=== PATIENT | male | born 1965 | race Caucasian/White ===

== ENCOUNTER 2023-05-25 15:40 | Inpatient (IN) | payer MEDICARE, SELFPAY ==
[2023-05-25] VITALS (16 sets, daily range): BP systolic 104–223; BP diastolic 63–147; PULSE 57–82; RESP 12–22; TEMP 36.7–36.8; O2SAT 97–100; BMI 21.5
--- NOTE | 2023-05-25 15:56 | W.ED.PSYCHS ---
Documented by User: JAHAIRA Benjamin 05/25/23 16:34 HPI - Psych General: Chief Complaint: Psychiatric Symptoms Stated Complaint: MHE (96) Time Seen by Provider: 05/25/23 15:48 Source: patient and police Mode of arrival: other (police) Limitations: no limitations History of Present Illness: Patient is a 58-year-old male who arrives in police custody on a 96-hour hold. Patient arrives from paperwork from [facility] emergency department where he was seen yesterday. According to paperwork, patient was seen in ED to obtain medical/psych clearance for nursing home. There is some confusion on what happened following discharge from [facility] ED as patient states police found him in a park but paperwork seems to indicate he left ED in police custody (?). Paperwork also seems to indicate that at some point he was supposed to go to [place] as they had confirmed bed availability. According to hold paperwork patient was overheard by police making homicidal statements stating that he was going to blow some guys head off. Upon my examination patient tells me that he has telekinesis and that his third eye allows him to see the voices. He states he has not been eating stating that the nursing home staff are poisoning him. Patient tells me he is not SI/HI. He is noted to be significantly hypertensive upon arrival with a BP of 220s/140s. Patient tells me he chronically has high blood pressure. He tells me he wears clonidine patches. Most likely he is having a significant rebound reaction at this time. He does not complain of a headache, chest pain, difficulty breathing. MD complaint: altered mental status Onset (ago): unknown Associated symptoms: Reports auditory hallucinations, visual hallucinations and delusions; Deny depression, homicidal ideation or suicidal ideation Treatments prior to arrival: placed on mental health hold Review of Systems Const: Denies: fever(s) or chills Card: Denies: chest pain, palpitations, lightheadedness or syncope Resp: Denies: dyspnea GI: Denies: abdominal pain, nausea, vomiting or diarrhea Skin/Breast: Denies: rash Neuro: Denies: headache(s) Psych: Reports: visual hallucinations and auditory hallucinations; Denies: anxiety, depression, suicidal ideation or homicidal ideation Physical Exam Const: COMMON NORMALS: no acute distress, no limitations, alert and well nourished GENERAL APPEARANCE: disheveled ORIENTATION/CONSCIOUSNESS: Yes awake, Yes oriented to person, Yes oriented to place and Yes oriented to time Resp: COMMON NORMALS: normal respiratory effort and clear to auscultation bilaterally AUSCULTATION: clear to auscultation bilaterally Cardio: COMMON NORMALS: regular rate and regular rhythm RATE: regular rate RHYTHM: regular rhythm Neuro: JAZ COMA SCALE: document GCS findings [place] coma scale eye opening: Spontaneous [place] coma scale verbal response: Orientated Jaz coma scale motor response: Obey commands Jaz coma scale total score: 15 SENSORIUM/ORIENTATION: Yes alert, Yes oriented to person, Yes oriented to place and Yes oriented to time Psych: COMMON NORMALS: cooperative, normal affect, speech normal, activity/motor behavior normal, denies homicidal ideation and denies suicidal ideation APPEARANCE: Yes disheveled ATTITUDE: Yes calm ACTIVITY/MOTOR BEHAVIOR: Yes appropriate eye contact SPEECH: Yes normal speech MOOD & AFFECT: Yes euthymic mood THOUGHT CONTENT: Yes delusions ATTENTION/CONCENTRATION: Yes attention grossly intact and Yes concentration grossly intact MEMORY/COGNITION: Yes memory grossly impaired and Yes cognition grossly impaired INSIGHT: Fair insight present (Psych) JUDGEMENT: Limited judgement present (Psych) Course Vital Signs: Vital signs: Vital Signs Temperature 98.3 F 05/25/23 15:58 Pulse Rate 66 05/25/23 17:17 Respiratory Rate 16 05/25/23 17:17 Blood Pressure 199/121 05/25/23 17:17 Pulse Oximetry 98 05/25/23 17:17 Oxygen Delivery Me thod Room Air 05/25/23 15:58 MDM - Psych Lab Data 05/25/23 16:16 05/25/23 16:16 Laboratory Results WBC 7.1 10^3/uL (4.0-10.0) 05/25/23 16:16 RBC 4.57 10^6/uL (4.1-5.3) 05/25/23 16:16 Hgb 12.9 g/dL (11.7-16.6) 05/25/23 16:16 Hct 41.2 % (42.0-52.0) L 05/25/23 16:16 MCV 90.2 fl (80-94) 05/25/23 16:16 MCH 28.2 pg (28.0-34.0) 05/25/23 16:16 MCHC 31.3 g/dL (30.0-36.0) 05/25/23 16:16 RDW 14.0 % (12.1-15.1) 05/25/23 16:16 Plt Count 226 10^3/cmm (130-400) 05/25/23 16:16 MPV 9.4 fL (7.4-10.4) 05/25/23 16:16 Neut % (Auto) 70.7 % 05/25/23 16:16 Lymph % (Auto) 20.5 % 05/25/23 16:16 [place] % (Auto) 4.7 % 05/25/23 16:16 Eos % (Auto) 3.2 % 05/25/23 16:16 Baso % (Auto) 0.6 % 05/25/23 16:16 Neut # (Auto) 5.01 10^3/uL (1.8-7.7) 05/25/23 16:16 Lymph # (Auto) 1.5 10^3/uL (0.8-4.8) 05/25/23 16:16 [place] # (Auto) 0.3 10^3/uL (0.2-0.9) 05/25/23 16:16 Eos # (Auto) 0.2 10^3/uL (0.0-0.8) 05/25/23 16:16 Baso # (Auto) 0.0 10^3/uL (0.0-0.1) 05/25/23 16:16 Nucleated RBC % (auto) 0 % 05/25/23 16:16 Nucleated RBCs # 0.0 /100WBC 05/25/23 16:16 Sodium 140 mmol/L (136-145) 05/25/23 16:16 Potassium 4.2 mmol/L (3.5-5.1) 05/25/23 16:16 Chloride 104 mmol/L (98-107) 05/25/23 16:16 Carbon Dioxide 25 mmol/L (22-29) 05/25/23 16:16 Anion Gap 15.2 (5-19) 05/25/23 16:16 BUN 20 mg/dL (6-20) 05/25/23 16:16 Creatinine 1.7 mg/dL (0.7-1.2) H 05/25/23 16:16 GFR Calculation 41.5 mL/min (90-130) L 05/25/23 16:16 Glucose 91 mg/dL (65-115) 05/25/23 16:16 Calculated Osmolality 292 mOsm/kg (285-295) 05/25/23 16:16 Calcium 9.3 mg/dL (8.5-10.5) 05/25/23 16:16 Total Bilirubin 0.5 mg/dL (0.15-1.2) 05/25/23 16:16 AST 10 U/L (0-40) 05/25/23 16:16 ALT 7 U/L (0-41) 05/25/23 16:16 Alkaline Phosphatase 78 U/L (40-130) 05/25/23 16:16 Total Protein 8.0 g/dL (6.6-8.7) 05/25/23 16:16 Albumin 4.5 g/dL (3.5-5.2) 05/25/23 16:16 Globulin 3.5 g/dL (1.3-4.6) 05/25/23 16:16 TSH 2.33 uIU/mL (0.27-4.20) 05/25/23 16:16 Urine Color Yellow (Yellow) 05/25/23 16:12 Urine Appearance Clear (CLEAR) 05/25/23 16:12 Urine pH 5 (5-7) 05/25/23 16:12 Ur Specific [place] 1.020 (1.005-1.030) 05/25/23 16:12 Urine Protein Neg (Negative) 05/25/23 16:12 Urine Glucose (UA) Norm (Normal) 05/25/23 16:12 Urine Ketones Negative (Negative) 05/25/23 16:12 Urine Blood Neg (Negative) 05/25/23 16:12 Urine Nitrate Negative (Negative) 05/25/23 16:12 Urine Bilirubin Neg (Negative) 05/25/23 16:12 Urine Urobilinogen Norm mg/dL (Negative) 05/25/23 16:12 Ur Leukocyte Esterase Negative (Negative) 05/25/23 16:12 Salicylates < 0.3 mg/dL (3-10) L 05/25/23 16:16 Urine Opiates Screen Negative ng/mL (Negative) 05/25/23 16:12 Acetaminophen < 5.0 ug/mL (10-30) L 05/25/23 16:16 Ur Barbiturates Screen Negative ng/mL (Negative) 05/25/23 16:12 Ur Phencyclidine Scrn Negative ng/mL (Negative) 05/25/23 16:12 Ur Amphetamines Screen Negative ng/mL (Negative) 05/25/23 16:12 U Benzodiazepines Scrn Negative ng/mL (Negative) 05/25/23 16:12 Urine Cocaine Screen Negative ng/mL (Negative) 05/25/23 16:12 U Marijuana (THC) Screen Negative ng/mL (Negative) 05/25/23 16:12 Ethyl Alcohol < 10 mg/dL (0-10) 05/25/23 16:16 Influenza Type A Ag Cancelled 05/25/23 16:40 Influenza Type B Ag Cancelled 05/25/23 16:40 SARS-CoV-2 Ag (Rapid) negative (Negative) 05/25/23 16:40 Discharge Plan Discharge Patient Disposition: Admitted As Inpatient Clinical Impression: Acute psychosis, Homicidal thoughts Condition: Stable Sign Out Sign Out Data: Patient Sign Out occurred on 05/25/23 at 16:59. Patient's care was discussed, and care was transferred from to Prosper Martinez. Coding Level of Care Code ED Die Cleaner for Leona Lee Documented by User: NITESH Domingo 05/25/23 17:20 HPI - Psych General: Chief Complaint: Psychiatric Symptoms Stated Complaint: MHE (96) Time Seen by Provider: 05/25/23 15:48 Physical Exam Neuro: JAZ COMA SCALE: document GCS findings [place] coma scale total score: 15 Course Vital Signs: Vital signs: Vital Signs Temperature 98.3 F 05/25/23 15:58 Pulse Rate 66 05/25/23 17:17 Respiratory Rate 16 05/25/23 17:17 Blood Pressure 199/121 05/25/23 17:17 Pulse Oximetry 98 05/25/23 17:17 Oxygen Delivery Me thod Room Air 05/25/23 15:58 MDM - Psych Medical Decision Making 58-year-old male patient was brought in for 96-hour hold for hallucinations and homicidal ideation while in custody at the [facility]. Patient is cooperative in the emergency department. Patient does have some elevated blood pressure. Patient was medicated with clonidine and lisinopril in the ER. Laboratory values were unremarkable. Respirations were even lungs were clear to auscultation. Patient reported no chest pain or shortness of breath. Differential diagnosis includes acute psychosis, substance abuse disorder, major depressive disorder, bipolar disorder, schizotypal disorder. Reviewed patient with Dr. Benson, psychiatrist on-call. He agreed to admission to neuropsychiatric unit for further evaluation and treatment. Lab Data 05/25/23 16:16 05/25/23 16:16 Laboratory Results WBC 7.1 10^3/uL (4.0-10.0) 05/25/23 16:16 RBC 4.57 10^6/uL (4.1-5.3) 05/25/23 16:16 Hgb 12.9 g/dL (11.7-16.6) 05/25/23 16:16 Hct 41.2 % (42.0-52.0) L 05/25/23 16:16 MCV 90.2 fl (80-94) 05/25/23 16:16 MCH 28.2 pg (28.0-34.0) 05/25/23 16:16 MCHC 31.3 g/dL (30.0-36.0) 05/25/23 16:16 RDW 14.0 % (12.1-15.1) 05/25/23 16:16 Plt Count 226 10^3/cmm (130-400) 05/25/23 16:16 MPV 9.4 fL (7.4-10.4) 05/25/23 16:16 Neut % (Auto) 70.7 % 05/25/23 16:16 Lymph % (Auto) 20.5 % 05/25/23 16:16 [place] % (Auto) 4.7 % 05/25/23 16:16 Eos % (Auto) 3.2 % 05/25/23 16:16 Baso % (Auto) 0.6 % 05/25/23 16:16 Neut # (Auto) 5.01 10^3/uL (1.8-7.7) 05/25/23 16:16 Lymph # (Auto) 1.5 10^3/uL (0.8-4.8) 05/25/23 16:16 [place] # (Auto) 0.3 10^3/uL (0.2-0.9) 05/25/23 16:16 Eos # (Auto) 0.2 10^3/uL (0.0-0.8) 05/25/23 16:16 Baso # (Auto) 0.0 10^3/uL (0.0-0.1) 05/25/23 16:16 Nucleated RBC % (auto) 0 % 05/25/23 16:16 Nucleated RBCs # 0.0 /100WBC 05/25/23 16:16 Sodium 140 mmol/L (136-145) 05/25/23 16:16 Potassium 4.2 mmol/L (3.5-5.1) 05/25/23 16:16 Chloride 104 mmol/L (98-107) 05/25/23 16:16 Carbon Dioxide 25 mmol/L (22-29) 05/25/23 16:16 Anion Gap 15.2 (5-19) 05/25/23 16:16 BUN 20 mg/dL (6-20) 05/25/23 16:16 Creatinine 1.7 mg/dL (0.7-1.2) H 05/25/23 16:16 GFR Calculation 41.5 mL/min (90-130) L 05/25/23 16:16 Glucose 91 mg/dL (65-115) 05/25/23 16:16 Calculated Osmolality 292 mOsm/kg (285-295) 05/25/23 16:16 Calcium 9.3 mg/dL (8.5-10.5) 05/25/23 16:16 Total Bilirubin 0.5 mg/dL (0.15-1.2) 05/25/23 16:16 AST 10 U/L (0-40) 05/25/23 16:16 ALT 7 U/L (0-41) 05/25/23 16:16 Alkaline Phosphatase 78 U/L (40-130) 05/25/23 16:16 Total Protein 8.0 g/dL (6.6-8.7) 05/25/23 16:16 Albumin 4.5 g/dL (3.5-5.2) 05/25/23 16:16 Globulin 3.5 g/dL (1.3-4.6) 05/25/23 16:16 TSH 2.33 uIU/mL (0.27-4.20) 05/25/23 16:16 Urine Color Yellow (Yellow) 05/25/23 16:12 Urine Appearance Clear (CLEAR) 05/25/23 16:12 Urine pH 5 (5-7) 05/25/23 16:12 Ur Specific [place] 1.020 (1.005-1.030) 05/25/23 16:12 Urine Protein Neg (Negative) 05/25/23 16:12 Urine Glucose (UA) Norm (Normal) 05/25/23 16:12 Urine Ketones Negative (Negative) 05/25/23 16:12 Urine Blood Neg (Negative) 05/25/23 16:12 Urine Nitrate Negative (Negative) 05/25/23 16:12 Urine Bilirubin Neg (Negative) 05/25/23 16:12 Urine Urobilinogen Norm mg/dL (Negative) 05/25/23 16:12 Ur Leukocyte Esterase Negative (Negative) 05/25/23 16:12 Salicylates < 0.3 mg/dL (3-10) L 05/25/23 16:16 Urine Opiates Screen Negative ng/mL (Negative) 05/25/23 16:12 Acetaminophen < 5.0 ug/mL (10-30) L 05/25/23 16:16 Ur Barbiturates Screen Negative ng/mL (Negative) 05/25/23 16:12 Ur Phencyclidine Scrn Negative ng/mL (Negative) 05/25/23 16:12 Ur Amphetamines Screen Negative ng/mL (Negative) 05/25/23 16:12 U Benzodiazepines Scrn Negative ng/mL (Negative) 05/25/23 16:12 Urine Cocaine Screen Negative ng/mL (Negative) 05/25/23 16:12 U Marijuana (THC) Screen Negative ng/mL (Negative) 05/25/23 16:12 Ethyl Alcohol < 10 mg/dL (0-10) 05/25/23 16:16 Influenza Type A Ag Cancelled 05/25/23 16:40 Influenza Type B Ag Cancelled 05/25/23 16:40 SARS-CoV-2 Ag (Rapid) negative (Negative) 05/25/23 16:40 Discharge Plan Discharge Patient Disposition: Admitted As Inpatient Clinical Impression: Acute psychosis, Homicidal thoughts Condition: Stable Sign Out Sign Out Data: Patient Sign Out occurred on 05/25/23 at 16:59. Patient's care was discussed, and care was transferred from to Prosper Martinez. Coding Level of Care Code ED Die Cleaner for Chg Fwd Documented by User: Zelalem Valles DO 05/25/23 17:56 HPI - Psych General: Chief Complaint: Psychiatric Symptoms Stated Complaint: MHE (96) Time Seen by Provider: 05/25/23 15:48 Physical Exam Neuro: JAZ COMA SCALE: document GCS findings Jaz coma scale total score: 15 Course Vital Signs: Vital signs: Vital Signs Temperature 98.3 F 05/25/23 15:58 Pulse Rate 66 05/25/23 17:17 Respiratory Rate 16 05/25/23 17:17 Blood Pressure 199/121 05/25/23 17:17 Pulse Oximetry 98 05/25/23 17:17 Oxygen Delivery Me thod Room Air 05/25/23 15:58 MDM - Psych Medical Decision Making 58-year-old male patient was brought in for 96-hour hold for hallucinations and homicidal ideation while in custody at the [facility]. Patient is cooperative in the emergency department. Patient does have some elevated blood pressure. Patient was medicated with clonidine and lisinopril in the ER. Laboratory values were unremarkable. Respirations were even lungs were clear to auscultation. Patient reported no chest pain or shortness of breath. Differential diagnosis includes acute psychosis, substance abuse disorder, major depressive disorder, bipolar disorder, schizotypal disorder. Reviewed patient with Dr. Benson, psychiatrist on-call. He agreed to admission to neuropsychiatric unit for further evaluation and treatment. Chart reviewed and patient discussed with midlevel. Agree with assessment and plan. Orders written for admission to [facility]. Creatinine is mildly elevated blood pressure is elevated as well. Will consult hospitalist for blood pressure management monitoring creatinine. Lab Data 05/25/23 16:16 05/25/23 16:16 Laboratory Results WBC 7.1 10^3/uL (4.0-10.0) 05/25/23 16:16 RBC 4.57 10^6/uL (4.1-5.3) 05/25/23 16:16 Hgb 12.9 g/dL (11.7-16.6) 05/25/23 16:16 Hct 41.2 % (42.0-52.0) L 05/25/23 16:16 MCV 90.2 fl (80-94) 05/25/23 16:16 MCH 28.2 pg (28.0-34.0) 05/25/23 16:16 MCHC 31.3 g/dL (30.0-36.0) 05/25/23 16:16 RDW 14.0 % (12.1-15.1) 05/25/23 16:16 Plt Count 226 10^3/cmm (130-400) 05/25/23 16:16 MPV 9.4 fL (7.4-10.4) 05/25/23 16:16 Neut % (Auto) 70.7 % 05/25/23 16:16 Lymph % (Auto) 20.5 % 05/25/23 16:16 [place] % (Auto) 4.7 % 05/25/23 16:16 Eos % (Auto) 3.2 % 05/25/23 16:16 Baso % (Auto) 0.6 % 05/25/23 16:16 Neut # (Auto) 5.01 10^3/uL (1.8-7.7) 05/25/23 16:16 Lymph # (Auto) 1.5 10^3/uL (0.8-4.8) 05/25/23 16:16 [place] # (Auto) 0.3 10^3/uL (0.2-0.9) 05/25/23 16:16 Eos # (Auto) 0.2 10^3/uL (0.0-0.8) 05/25/23 16:16 Baso # (Auto) 0.0 10^3/uL (0.0-0.1) 05/25/23 16:16 Nucleated RBC % (auto) 0 % 05/25/23 16:16 Nucleated RBCs # 0.0 /100WBC 05/25/23 16:16 Sodium 140 mmol/L (136-145) 05/25/23 16:16 Potassium 4.2 mmol/L (3.5-5.1) 05/25/23 16:16 Chloride 104 mmol/L (98-107) 05/25/23 16:16 Carbon Dioxide 25 mmol/L (22-29) 05/25/23 16:16 Anion Gap 15.2 (5-19) 05/25/23 16:16 BUN 20 mg/dL (6-20) 05/25/23 16:16 Creatinine 1.7 mg/dL (0.7-1.2) H 05/25/23 16:16 GFR Calculation 41.5 mL/min (90-130) L 05/25/23 16:16 Glucose 91 mg/dL (65-115) 05/25/23 16:16 Calculated Osmolality 292 mOsm/kg (285-295) 05/25/23 16:16 Calcium 9.3 mg/dL (8.5-10.5) 05/25/23 16:16 Total Bilirubin 0.5 mg/dL (0.15-1.2) 05/25/23 16:16 AST 10 U/L (0-40) 05/25/23 16:16 ALT 7 U/L (0-41) 05/25/23 16:16 Alkaline Phosphatase 78 U/L (40-130) 05/25/23 16:16 Total Protein 8.0 g/dL (6.6-8.7) 05/25/23 16:16 Albumin 4.5 g/dL (3.5-5.2) 05/25/23 16:16 Globulin 3.5 g/dL (1.3-4.6) 05/25/23 16:16 TSH 2.33 uIU/mL (0.27-4.20) 05/25/23 16:16 Urine Color Yellow (Yellow) 05/25/23 16:12 Urine Appearance Clear (CLEAR) 05/25/23 16:12 Urine pH 5 (5-7) 05/25/23 16:12 Ur Specific [place] 1.020 (1.005-1.030) 05/25/23 16:12 Urine Protein Neg (Negative) 05/25/23 16:12 Urine Glucose (UA) Norm (Normal) 05/25/23 16:12 Urine Ketones Negative (Negative) 05/25/23 16:12 Urine Blood Neg (Negative) 05/25/23 16:12 Urine Nitrate Negative (Negative) 05/25/23 16:12 Urine Bilirubin Neg (Negative) 05/25/23 16:12 Urine Urobilinogen Norm mg/dL (Negative) 05/25/23 16:12 Ur Leukocyte Esterase Negative (Negative) 05/25/23 16:12 Salicylates < 0.3 mg/dL (3-10) L 05/25/23 16:16 Urine Opiates Screen Negative ng/mL (Negative) 05/25/23 16:12 Acetaminophen < 5.0 ug/mL (10-30) L 05/25/23 16:16 Ur Barbiturates Screen Negative ng/mL (Negative) 05/25/23 16:12 Ur Phencyclidine Scrn Negative ng/mL (Negative) 05/25/23 16:12 Ur Amphetamines Screen Negative ng/mL (Negative) 05/25/23 16:12 U Benzodiazepines Scrn Negative ng/mL (Negative) 05/25/23 16:12 Urine Cocaine Screen Negative ng/mL (Negative) 05/25/23 16:12 U Marijuana (THC) Screen Negative ng/mL (Negative) 05/25/23 16:12 Ethyl Alcohol < 10 mg/dL (0-10) 05/25/23 16:16 Influenza Type A Ag Cancelled 05/25/23 16:40 Influenza Type B Ag Cancelled 05/25/23 16:40 SARS-CoV-2 Ag (Rapid) negative (Negative) 05/25/23 16:40 Discharge Plan Discharge Patient Disposition: Admitted As Inpatient Clinical Impression: Acute psychosis, Homicidal thoughts Condition: Stable Sign Out Sign Out Data: Patient Sign Out occurred on 05/25/23 at 16:59. Patient's care was discussed, and care was transferred from to Prosper Martinez. Coding Level of Care Code ED Die Cleaner for Leona Lee
[2023-05-25 16:28] LABS: Add Urine Microscopic? NO; Charge for UA Resulting for Rev
[2023-05-25 16:28] LABS: Basophils % 0.6 %; Eosinophils # 0.2 10^3/uL (0.0-0.8); Eosinophils % 3.2 %; Hematocrit 41.2 % (42.0-52.0); Hemoglobin 12.9 g/dL (11.7-16.6); Lymphocytes # 1.5 10^3/uL (0.8-4.8); Lymphocytes % 20.5 %; Mean Corpuscular HGB Conc 31.3 g/dL (30.0-36.0); Mean Corpuscular Hemoglobin 28.2 pg (28.0-34.0); Mean Corpuscular Volume 90.2 fl (80-94); Mean Platelet Volume 9.4 fL (7.4-10.4); Monocytes # 0.3 10^3/uL (0.2-0.9); Monocytes % 4.7 %; Neutrophils # 5.01 10^3/uL (1.8-7.7); Neutrophils % 70.7 %; Nucleated Red Blood Cells % 0 %; Platelet Count 226 10^3/cmm (130-400); Red Blood Count 4.57 10^6/uL (4.1-5.3); White Blood Count 7.1 10^3/uL (4.0-10.0)
[2023-05-25] MEDS: cloNIDine 0.1 mg Tablet PO (16:29)
[2023-05-25] MEDS: lisinopril 20 mg Tablet PO (16:29)
[2023-05-25 16:34] LABS: Bilirubin Urine Neg (Negative); Blood Urine Neg (Negative); Glucose Urine UA Norm (Normal); Ketones Urine Negative (Negative); Leukocyte Esterase Urine Negative (Negative); Nitrate Urine Negative (Negative); Protein Urine Neg (Negative); Urine Appearance Clear (CLEAR); Urine Color Yellow (Yellow); Urobilinogen Urine Norm (Negative); pH Urine 5 (5-7)
[2023-05-25 16:37] LABS: Amphetamines Screen Urine Negative (Negative); Barbiturates Screen Urine Negative (Negative); Benzodiazepines Screen Urine Negative (Negative); Cocaine Screen Urine Negative (Negative); Opiate Screen Urine Negative (Negative); PCP Screen Urine Negative (Negative); THC Screen Urine Negative (Negative)
--- NOTE | 2023-05-25 16:49 | ECG_ITS ---
[facility] Test Date: 2023-05-25 Pat Name: Jason Castro Department: Room: Gender: Male Laborer Yard: : 1965 Requested By: Maggie Hamilton Order Number: [id number] Gracia MD: Carlos Landeros M.D. Measurements Intervals [place] Rate: 49 P: 67 AK: 138 QRS: 69 QRSD: 100 T: 89 QT: 433 QTc: 393 Interpretive Statements SINUS BRADYCARDIA POSSIBLE LEFT ATRIAL ENLARGEMENT [-0.1mV P-WAVE IN V1/V2] LEFT VENTRICULAR HYPERTROPHY AND ST-T CHANGE [VOLTAGE CRITERIA PLUS ST/T ABNORMALITY] No previous ECG available for comparison Electronically Signed On 05-25-2023 17:02:30 CDT by Carlos Landeros M.D. [id number]
[2023-05-25 16:55] LABS: Alanine Aminotransferase 7 U/L (0-41); Albumin Level 4.5 g/dL (3.5-5.2); Alkaline Phosphatase 78 U/L (40-130); Anion Gap 15.2 (5-19); Aspartate Amino Transferase 10 U/L (0-40); Blood Urea Nitrogen 20 mg/dL (6-20); Calcium 9.3 mg/dL (8.5-10.5); Carbon Dioxide 25 mmol/L (22-29); Chloride 104 mmol/L (98-107); Globulin 3.5 g/dL (1.3-4.6); Glomerular Filtration Rate 41.5 mL/min (90-130); Glucose 91 mg/dL (65-115); Osmolality Calculated 292 mOsm/kg (285-295); Potassium 4.2 mmol/L (3.5-5.1); Sodium 140 mmol/L (136-145); Total Bilirubin 0.5 mg/dL (0.15-1.2)
[2023-05-25 16:56] LABS: Acetaminophen < 5.0 ug/mL (10-30); Alcohol Level < 10 mg/dL (0-10); Creatinine Clr Calc Pharmacy 46.9956; Salicylate < 0.3 mg/dL (3-10)
[2023-05-25 17:06] LABS: Thyroid Stimulating Hormone 2.33 uIU/mL (0.27-4.20)
[2023-05-25 17:20] LABS: SARS Covid-2 Antigen negative (Negative)
[2023-05-25] MEDS: hyDRALAzine 25 mg Tablet 50 MG PO (17:55)
--- NOTE | 2023-05-25 18:07 | ECG_ITS ---
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 Measurements Intervals [place] Rate: 57 P: 58 NV: 135 QRS: 63 QRSD: 96 T: 81 QT: 443 QTc: 432 Interpretive Statements SINUS BRADYCARDIA POSSIBLE LEFT ATRIAL ENLARGEMENT [-0.1mV P-WAVE IN V1/V2] LEFT VENTRICULAR HYPERTROPHY AND ST-T CHANGE [VOLTAGE CRITERIA PLUS ST/T ABNORMALITY] Compared to ECG 05/25/2023 16:49:43 No significant changes Electronically Signed On 05-26-2023 14:46:06 CDT by Joshua Lin M.D. [id number]
--- NOTE | 2023-05-25 18:25 | CTR_ITS ---
PROCEDURE INFORMATION: Exam: CT Head Without Contrast Exam date and time: 05/25/2023 6:35 PM Age: 58 years old Clinical indication: Stroke-like symptoms; Other: HTN; Additional info: HTN urgency TECHNIQUE: Imaging protocol: Computed tomography of the head without contrast. Radiation optimization: All CT scans at this facility use at least one of these dose optimization techniques: automated exposure control; mA and/or kV adjustment per patient size (includes targeted exams where dose is matched to clinical indication); or iterative reconstruction. Other technique: STROKE PROTOCOL was implemented. REPORTING DATA: Count of CT and Cardiac NM exams in prior 12 months: This patient has received 0 known CTs and 0 known cardiac nuclear medicine studies in the 12 months prior to the current study. COMPARISON: No relevant prior studies available. RADIATION DOSE METRICS: Total DLP (mGy-cm): 943.68 FINDINGS: Brain: Mild diffuse cortical volume loss. Severe hypodensities in supratentorial periventricular and subcortical white matter. No intracranial hemorrhage. Chronic appearing lacunar infarcts in the anterior thalami, right larger than left. Cerebral ventricles: No ventriculomegaly. Paranasal sinuses: Visualized sinuses are unremarkable. No fluid levels. Mastoid air cells: Visualized mastoid air cells are well aerated. Bones/joints: Unremarkable. No acute fracture. Soft tissues: Unremarkable. Vasculature: No hyperdense artery. CT/CT head wo con* [id number] IMPRESSION: 1. No definite acute findings. 2. 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 ASSESSMENT: ASPECTS ([place] Stroke Program Early CT Score) is 10.
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
[2023-05-25 19:08] LABS: Troponin(5th) Baseline 19 ng/L (0-15)
[2023-05-25 19:18] LABS: NT Pro B Type Natriuretic Pept 2516 pg/mL (0-125)
--- NOTE | 2023-05-25 20:07 | ECG_ITS ---
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 Measurements Intervals [place] Rate: 53 P: 58 ND: 136 QRS: 52 QRSD: 96 T: 79 QT: 452 QTc: 426 Interpretive Statements SINUS BRADYCARDIA POSSIBLE LEFT ATRIAL ENLARGEMENT [-0.1mV P-WAVE IN V1/V2] LEFT VENTRICULAR HYPERTROPHY AND ST-T CHANGE [VOLTAGE CRITERIA PLUS ST/T ABNORMALITY] Compared to ECG 05/25/2023 18:45:34 No significant changes Electronically Signed On 05-26-2023 14:52:43 CDT by Joshua Lin M.D. [email or web address] [email or web address] memorial [id number]
--- NOTE | 2023-05-25 20:12 | USR_ITS ---
PROCEDURE INFORMATION: Exam: US Retroperitoneal; Complete; Kidneys and Bladder Exam date and time: 05/25/2023 9:11 PM Age: 58 years old Clinical indication: Other: Normal bun = 20, elevated creatinine = 1.7; Additional info: Jonathan TECHNIQUE: Imaging protocol: Real-time ultrasound of the retroperitoneum with image documentation. Complete exam focused on the kidneys and bladder. COMPARISON: No relevant prior studies available. FINDINGS: Right kidney: 11.1 x 5.0 x 5.7 cm. No mass, cyst, calculus, or hydronephrosis. Left kidney: 9.2 x 3.1 x 2.8 cm. No mass, cyst, calculus, or hydronephrosis. Urinary bladder: Normal size and contour. Bilateral ureteral jets visualized. Prevoid volume 55 mL. Postvoid volume 1 mL. Prostate: Enlarged and inhomogenous measuring 5.5 x 4.3 x 2.9 cm with coarse calcifications. Other findings: US/US renal BI* [id number] IMPRESSION: 1. No acute findings. 2. Inhomogenous enlarged prostate.
--- NOTE | 2023-05-25 20:12 | XRR_ITS ---
PROCEDURE INFORMATION: Exam: XR Chest Exam date and time: 05/25/2023 8:21 PM Age: 58 years old Clinical indication: Other: HTN; Additional info: HTN urgency TECHNIQUE: Imaging protocol: Radiologic exam of the chest. Views: 1 view. COMPARISON: No relevant prior studies available. FINDINGS: Lungs: Multiple small calcified granulomas in both lungs. The lungs are otherwise clear. No consolidation. Pleural spaces: Unremarkable. No pleural effusion. No pneumothorax. Heart/Mediastinum: Unremarkable. No cardiomegaly. Bones/joints: Mild leftward thoracic curvature. No visible fracture. XR/XR chest 1V portable [id number] IMPRESSION: No acute findings.
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
--- NOTE | 2023-05-25 20:26 | PC.NURSE ---
96 Hour Hold Patient Rights have been read to patient and a copy of the same has been given to him. Order Entry Clerk Anjel was present at bedside.
[2023-05-25 20:38] LABS: Chol HDL Ratio 3.73 mg/dL (1.0-5.00); Cholesterol 168 mg/dL (0-200); HDL Cholesterol 45 mg/dL (60-100); LDL Cholesterol Calculated 109 mg/dL (50-129); LDL HDL Ratio 2.42 RATIO (0.00-3.22); Triglycerides 71 mg/dL (0-150)
[2023-05-25 20:47] LABS: Estmated Average Glucose 97
[2023-05-25 20:53] LABS: Troponin 5 2HR 20.18 ng/L (0-15); Troponin 5 2HR Delta 1.18 ABS# (0-10)
[2023-05-25] MEDS: enoxaparin 40 mg/0.4 mL Syringe SUBCUT (21:04)
[2023-05-25] MEDS: pantoprazole 40 mg SDV IVP (21:09)
[2023-05-25] MEDS: amlodipine 10 mg Tablet PO (21:10)
--- NOTE | 2023-05-25 22:07 | PC.NURSE ---
RN and security into room to count money with patient. Security counted $506 dollars in resendez in front of pt with $1.32 in change. Total is $507.32. RN counted money. RN found same totals in similar fashion. Pt agreed to total. Money was placed in the wallet with the wallet in a baggy and taped closed. This baggy was placed in belongings bag.
[2023-05-25] MEDS: sodium chloride 0.9% 1,000 ML 50 ML IV (22:10)
[2023-05-25] MEDS: nicardipine 20 MG/200 ML PREMIX 50 MG IV (22:10)
[2023-05-25] MEDS: acetaminophen 325 mg Tablet 650 MG PO (23:20)
[2023-05-26] VITALS (46 sets, daily range): BP systolic 100–148; BP diastolic 56–87; PULSE 40–78; RESP 10–22; TEMP 36.6–37; O2SAT 95–100
--- NOTE | 2023-05-26 00:07 | ECG_ITS ---
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 Measurements Intervals [place] Rate: 59 P: 57 CA: 151 QRS: 49 QRSD: 105 T: 83 QT: 446 QTc: 444 Interpretive Statements SINUS BRADYCARDIA POSSIBLE LEFT ATRIAL ENLARGEMENT [-0.1mV P-WAVE IN V1/V2] INCOMPLETE RIGHT BUNDLE BRANCH BLOCK [90+ ms QRS DURATION, TERMINAL R IN V1/V2, 40+ ms S IN I/aVL/V4/V5/V6] POSSIBLE LEFT VENTRICULAR HYPERTROPHY [VOLTAGE CRITERIA PLUS LAE OR QRS WIDENING] NONSPECIFIC ST & T-WAVE ABNORMALITY Compared to ECG 05/25/2023 20:13:30 Incomplete right bundle-branch block now present T-wave abnormality now present ST (T wave) deviation no longer present Electronically Signed On 05-26-2023 14:53:03 CDT by Joshua Lin M.D. [id number]
[2023-05-26 01:25] LABS: Basophils % 0.5 %; Eosinophils # 0.3 10^3/uL (0.0-0.8); Eosinophils % 3.9 %; Hematocrit 35.8 % (42.0-52.0); Hemoglobin 11.4 g/dL (11.7-16.6); Lymphocytes # 1.8 10^3/uL (0.8-4.8); Lymphocytes % 27.9 %; Mean Corpuscular HGB Conc 31.8 g/dL (30.0-36.0); Mean Corpuscular Hemoglobin 28.9 pg (28.0-34.0); Mean Corpuscular Volume 90.9 fl (80-94); Mean Platelet Volume 9.9 fL (7.4-10.4); Monocytes # 0.4 10^3/uL (0.2-0.9); Monocytes % 5.9 %; Neutrophils # 4.06 10^3/uL (1.8-7.7); Neutrophils % 61.5 %; Nucleated Red Blood Cells % 0 %; Platelet Count 207 10^3/cmm (130-400); Red Blood Count 3.94 10^6/uL (4.1-5.3); White Blood Count 6.6 10^3/uL (4.0-10.0)
[2023-05-26 01:42] LABS: Troponin 5 6HR 23.58 ng/L (0-15)
[2023-05-26 01:43] LABS: Magnesium 2.3 mg/dL (1.7-2.3)
[2023-05-26 01:46] LABS: Troponin 5 6HR Delta 4.58 ng/L (0-12)
[2023-05-26 01:57] LABS: Anion Gap 12.6 (5-19); Blood Urea Nitrogen 22 mg/dL (6-20); Carbon Dioxide 25 mmol/L (22-29); Chloride 105 mmol/L (98-107); Glomerular Filtration Rate 38.8 mL/min (90-130); Glucose 91 mg/dL (65-115); Osmolality Calculated 291 mOsm/kg (285-295); Phosphorus 2.6 mg/dL (2.5-4.5); Potassium 3.6 mmol/L (3.5-5.1); Sodium 139 mmol/L (136-145)
[2023-05-26] MEDS: tamsulosin 0.4 mg Capsule PO (08:50)
--- NOTE | 2023-05-26 10:20 | ECG_ITS ---
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 Measurements Intervals [place] Rate: 48 P: 56 ID: [id number] QRS: 51 QRSD: 98 T: 103 QT: 469 QTc: 422 Interpretive Statements SINUS BRADYCARDIA POSSIBLE LEFT ATRIAL ENLARGEMENT [-0.1mV P-WAVE IN V1/V2] NONSPECIFIC ST ELEVATION [0.05+ mV ST ELEVATION] Compared to ECG 05/26/2023 00:19:37 ST (T wave) deviation now present Incomplete right bundle-branch block no longer present T-wave abnormality no longer present Electronically Signed On 05-26-2023 14:51:23 CDT by Joshua Lin M.D. [id number]
[2023-05-26] MEDS: amlodipine 10 mg Tablet PO (10:44)
--- NOTE | 2023-05-26 18:07 | P.PN_ITS ---
Subjective Subjective: - Patient was seen this morning -Has no complaints no chest pain, no palpitations, no shortness of breath -He is currently off the Cardene drip -Discussed his head CT about the lacunar infarcts, he is going to need good blood pressure management as he is high risk of strokes -I discussed with him in detail about his echocardiogram findings, with evidence of LVH, will need to have better blood pressure control -He does have elevated troponins, likely from his hypertension will need to monitor as outpatient but no chest pain complaints -Did discuss his chronic kidney disease, will need to follow-up with a fire fighter crash fire and rescue, follow-up with primary care -Did discuss his enlarged prostate we will start him on Flomax Vitals/I&O/Wt Last Vital Signs Temp 98 F 05/26/23 16:18 Pulse 60 05/26/23 16:18 Resp 18 05/26/23 16:18 BP 148/78 05/26/23 16:18 Pulse Ox 98 05/26/23 16:18 O2 Del Method Room Air 05/26/23 16:49 05/26/23 05/26/23 05/26/23 06:59 14:59 22:59 Intake Total 314.167 / 580.834 240 / 240 240 / 480 Output Total 375 / 925 Balance -60.833 / -344.166 240 / 240 240 / 480 Weight last 48 hrs Weight 68.039 kg Physical Exam Const: COMMON NORMALS: no acute distress and patient oriented x3 Resp: COMMON NORMALS: normal respiratory effort, No retractions, No use of accessory muscles and clear to auscultation bilaterally AUSCULTATION: clear to auscultation bilaterally Cardio: COMMON NORMALS: regular rate, regular rhythm, S1 normal heart sound present and S2 normal heart sound present RATE: regular rate RHYTHM: regular rhythm HEART SOUNDS: S1 normal heart sound present and S2 normal heart sound present GI: COMMON NORMALS: Normal to inspection, nondistended, normoactive bowel sounds present and non-tender Extremity: COMMON NORMALS: no pedal edema Neuro: COMMON NORMALS: patient oriented x3 Psych: COMMON NORMALS: mental status grossly normal Data 05/26/23 01:01 05/26/23 01:01 A&P Assessment and plan (1) Hypertensive urgency: (2) Acute psychosis: (3) NSTEMI (non-ST elevated myocardial infarction): (4) Acute kidney injury superimposed on CKD: (5) LVH (left ventricular hypertrophy): (6) Multiple lacunar infarcts: Plan Hypertensive urgency -Perform CT of the head, multiple lacunar infarcts, needs blood pressure monitoring -NSTEMI, likely cardiac stress, likely type II from hypertension however cannot rule out underlying cardiac etiology needs to follow-up with cardiology on discharge, monitor -Cardiac echo shows LVH, needs to follow-up with cardiology -On Norvasc, on chlorthalidone, on clonidine -Slowly titrate blood pressure -AYDEN, on chronic kidney disease need to follow-up with nephrology monitor kidney function -Full code -We will move to n.p.u Acute psychosis as per psychiatry, 96-hour hold, one-to-one observation We will move to neuropsychiatric unit today, start chlorthalidone monitor blood pressure, monitor kidney function Attestations Medical Necessity Statement*: Patient requires hospitalization for hypertensive urgency, LVH, NSTEMI, multiple lacunar infarcts, CKD, AYDEN Diagnoses Hypertensive urgency I16.0 Acute psychosis F23 NSTEMI (non-ST elevated myocardial infarction) I21.4 Acute kidney injury superimposed on CKD N17.9; N18.9 LVH (left ventricular hypertrophy) I51.7 Multiple lacunar infarcts I63.81
[2023-05-26] MEDS: chlorthalidone 25 mg Tablet 12.5 MG PO (19:11)
--- NOTE | 2023-05-27 04:36 | PC.NURSE ---
RT HERE TO COMPLETE ORDER FOR ASSESS AND TREAT. RT STATES PT IS BREATHING FINE.
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
[2023-05-27 06:53] VITALS: BP 154/96; PULSE 68; RESP 16; TEMP 36.7; O2SAT 99
[2023-05-27] MEDS: tamsulosin 0.4 mg Capsule PO (09:39)
[2023-05-27] MEDS: amlodipine 10 mg Tablet PO (09:39)
[2023-05-27 10:16] LABS: Anion Gap 13.3 (5-19); Blood Urea Nitrogen 33 mg/dL (6-20); Calcium 9.3 mg/dL (8.5-10.5); Carbon Dioxide 25 mmol/L (22-29); Chloride 108 mmol/L (98-107); Glomerular Filtration Rate 38.8 mL/min (90-130); Glucose 107 mg/dL (65-115); Osmolality Calculated 302 mOsm/kg (285-295); Potassium 4.3 mmol/L (3.5-5.1); Sodium 142 mmol/L (136-145)
--- NOTE | 2023-05-27 12:30 | USCV_ITS ---
Jason Castro Age: 58 Gender: M : 1965 Exam Date: 05/27/2023 14:48 Ordering Phys: Bill Kirkpatrick MD Technologist: ERIS [place] [facility] [place]: [place] Risk Factors: Previous Vascular Surgery: Right Brachial BP: / Left Brachial BP: / Right Left Velocity (cm/s) Spectral Plaque Velocity (cm/s) Spectral Plaque Syst/Diast Broadening Syst/Diast Broadening 114.70/8.80 Prox CCA 100.00/ 18.80 118.00/15.40 Mid CCA 116.90/ 17.60 87.10/ 20.90 Prox ICA 76.10 / 18.70 79.40/ 26.50 Mid ICA 79.40 / 22.10 75.00/ 19.80 Distal ICA 70.60 / 18.70 58.20 ECA 112.50 0.74 ICA/CCA 0.68 Antegrade Vertebral Antegrade 36.90/ 5.00 cm/s 59.50/ 15.40 cm/s Tri Subclavian Tri 113.1 0 CONCLUSIONS Intimal thickening in the common carotid arteries and internal carotid arteries bilaterally. Right ICA stenosis <50%. Mild atheromatous plaque right carotid bulb/ICA. Left ICA stenosis <50%. Mild atheromatous plaque left carotid bulb/ICA. Normal antegrade Doppler flow noted in the right vertebral artery. Normal antegrade Doppler flow noted in the left vertebral artery. Celso Aguilera MD (Electronically Signed) Final Date: 27 May 2023 16:51 S
--- NOTE | 2023-05-27 12:31 | PC.NURSE ---
Call placed to Dr Kirkpatrick, order to be placed for Meclizine for vertigo
[2023-05-27] MEDS: meclizine 25 mg tablet PO (12:47)
[2023-05-27 13:06] VITALS: BP 155/84; PULSE 52
[2023-05-27 13:08] VITALS: BP 167/93; PULSE 65
[2023-05-27 14:00] VITALS: BP 168/90; PULSE 63; RESP 18; TEMP 36.6; O2SAT 99
--- NOTE | 2023-05-27 15:57 | CTR_ITS ---
PROCEDURE INFORMATION: Exam: CT Head Without Contrast Exam date and time: 05/27/2023 4:28 PM Age: 58 years old Clinical indication: Dizziness; Additional info: Blurry vision, dizzyness TECHNIQUE: Imaging protocol: Computed tomography of the head without contrast. Radiation optimization: All CT scans at this facility use at least one of these dose optimization techniques: automated exposure control; mA and/or kV adjustment per patient size (includes targeted exams where dose is matched to clinical indication); or iterative reconstruction. REPORTING DATA: Count of CT and Cardiac NM exams in prior 12 months: This patient has received [address] and 0 known cardiac nuclear medicine studies in the 12 months prior to the current study. COMPARISON: CT head wo con* [id number] 05/25/2023 6:35 PM RADIATION DOSE METRICS: Total DLP (mGy-cm): 940.3 FINDINGS: Brain: Mild diffuse cortical volume loss. Stable severe hypodensities in supratentorial periventricular and subcortical white matter, consistent with microangiopathy. No intracranial hemorrhage. Stable chronic lacunar infarcts in the right thalamus and right park radiata. Cerebral ventricles: No ventriculomegaly. Paranasal sinuses: Visualized sinuses are unremarkable. No fluid levels. Mastoid air cells: Visualized mastoid air cells are well aerated. Bones/joints: Unremarkable. No acute fracture. Soft tissues: Unremarkable. Vasculature: No hyperdense artery. CT/CT head wo con* [id number] IMPRESSION: 1. No acute intracranial abnormality. 2. Stable severe microangiopathy.
[2023-05-27 16:32] LABS: Basophils % 0.6 %; Eosinophils # 0.2 10^3/uL (0.0-0.8); Eosinophils % 3.4 %; Hematocrit 35.2 % (42.0-52.0); Lymphocytes # 1.2 10^3/uL (0.8-4.8); Lymphocytes % 23.5 %; Mean Corpuscular HGB Conc 31.3 g/dL (30.0-36.0); Mean Corpuscular Hemoglobin 28.6 pg (28.0-34.0); Mean Corpuscular Volume 91.7 fl (80-94); Mean Platelet Volume 9.8 fL (7.4-10.4); Monocytes # 0.4 10^3/uL (0.2-0.9); Neutrophils # 3.45 10^3/uL (1.8-7.7); Neutrophils % 65.5 %; Nucleated Red Blood Cells % 0 %; Platelet Count 211 10^3/cmm (130-400); Red Blood Count 3.84 10^6/uL (4.1-5.3); Red Cell Distribution Width 14.3 % (12.1-15.1); White Blood Count 5.3 10^3/uL (4.0-10.0)
[2023-05-27 16:51] LABS: Blood Urea Nitrogen 35 mg/dL (6-20); Calcium 9.4 mg/dL (8.5-10.5); Carbon Dioxide 26 mmol/L (22-29); Chloride 106 mmol/L (98-107); Glomerular Filtration Rate 44.5 mL/min (90-130); Glucose 93 mg/dL (65-115); Osmolality Calculated 300 mOsm/kg (285-295); Sodium 141 mmol/L (136-145)
[2023-05-27 16:53] LABS: Anion Gap 13.4 (5-19); Potassium 4.4 mmol/L (3.5-5.1)
--- NOTE | 2023-05-27 17:19 | PM.PN ---
Subjective Subjective: - Patient was examined early in the morning, he is doing well, no fevers, no chills, no nausea, vomiting, no chest pain, palpitations, no headache, blurry vision, no facial droop no slurring of his words -Has paged by nursing staff early in the afternoon that patient was complaining of dizziness when changing head positions, thoughts were for possible benign positional vertigo, I ordered OT for consideration of maneuvers, ordered meclizine -OT examined patient, his vertigo has improved but continues to complain of vertigo when changing head position and intermittent blurry vision specifically out of only the right eye and only when changing head position and standing up -I reexamined patient thereafter, no facial droop no slurring of his words he is actually ambulating around the neuropsychiatric unit, hanging out with a friend there, speaking, no productive aphasia no receptive aphasia no blurry vision currently no lightheadedness, dizziness, -He does report that when he gets up he is a bit blurry in his right eye but only lasts a few minutes to seconds -I did do a ophthalmoscope on him he does have cataract in the right eye pupils equal round reactive to light, its difficult for me to see the retina, he will need to have a detailed retinal exam through an parking ramp attendant as outpatient, does have some saccadic eye movements on lateral movement -Visual field testing, intact peripheral and medial, cannot discern objects, can read -Extraocular movements intact -I ordered a repeat CT of the head, carotid artery ultrasound, repeat blood work I advised him that he is going to need to follow-up with ophthalmology as outpatient -His CT of his head has showed multiple strokes in the past, including infarcts, in the right thalamus, right park radiata, I am place him on Plavix, he has an aspirin allergy anaphylaxis,, denies any allergic reaction to Plavix -We will try 75 mg of Plavix, monitor closely, EpiPen if needed -Atorvastatin 40 mg at bedtime -Discussed risk and benefits, he voiced understanding, all questions answered, agreed to proceed -We will continue to monitor. Neuropsychiatric unit monitor blood pressures closely -I think that his vertigo is likely benign positional vertigo, will continue maneuvers, meclizine as needed Vitals/I&O/Wt Last Vital Signs Temp 98 F 05/27/23 14:00 Pulse 63 05/27/23 14:00 Resp 18 07/14/23 14:00 BP 168/90 05/27/23 14:00 Pulse Ox 99 05/27/23 14:00 O2 Del Method Room Air 05/27/23 14:00 Physical Exam Const: COMMON NORMALS: no acute distress and patient oriented x3 HENMT: COMMON NORMALS: normocephalic HEAD & SCALP: normocephalic Eye: COMMON NORMALS: Equal, round and reactive pupils present, EOMs intact bilaterally, conjunctivae normal, no scleral icterus and normal visual sanches by confrontation CONJUNCTIVA: Yes conjunctivae normal PUPIL: Yes Equal, round and reactive pupils present Resp: COMMON NORMALS: normal respiratory effort, No retractions, No use of accessory muscles and clear to auscultation bilaterally AUSCULTATION: clear to auscultation bilaterally Cardio: COMMON NORMALS: regular rate, regular rhythm, S1 normal heart sound present and S2 normal heart sound present RATE: regular rate RHYTHM: regular rhythm HEART SOUNDS: S1 normal heart sound present and S2 normal heart sound present GI: COMMON NORMALS: Normal to inspection, nondistended, normoactive bowel sounds present and non-tender Extremity: COMMON NORMALS: no pedal edema Neuro: COMMON NORMALS: patient oriented x3, CN's II-XII intact bilaterally, moves all extremities and no focal motor deficits Psych: COMMON NORMALS: mental status grossly normal Data 05/27/23 16:22 05/27/23 16:22 A&P Assessment and plan (1) Hypertensive urgency: (2) Acute psychosis: (3) NSTEMI (non-ST elevated myocardial infarction): (4) Acute kidney injury superimposed on CKD: (5) LVH (left ventricular hypertrophy): (6) Multiple lacunar infarcts: (7) Benign positional vertigo: (8) Blurry vision, right eye: Plan Hypertensive urgency - CT of the head, multiple lacunar infarcts, needs blood pressure monitoring, start Plavix, and atorvastatin -NSTEMI, likely cardiac stress, likely type II from hypertension however cannot rule out underlying cardiac etiology needs to follow-up with cardiology on discharge, monitor -Cardiac echo shows LVH, needs to follow-up with cardiology -On Norvasc, on chlorthalidone, on clonidine -Slowly titrate blood pressure -AYDEN, on chronic kidney disease need to follow-up with nephrology monitor kidney function -Full code -Currently in neuropsychiatric unit Acute psychosis as per psychiatry, 96-hour hold, one-to-one observation - Patient was examined early in the morning, he is doing well, no fevers, no chills, no nausea, vomiting, no chest pain, palpitations, no headache, blurry vision, no facial droop no slurring of his words -Has paged by nursing staff early in the afternoon that patient was complaining of dizziness when changing head positions, thoughts were for possible benign positional vertigo, I ordered OT for consideration of maneuvers, ordered meclizine -OT examined patient, his vertigo has improved but continues to complain of vertigo when changing head position and intermittent blurry vision specifically out of only the right eye and only when changing head position and standing up -I reexamined patient thereafter, no facial droop no slurring of his words he is actually ambulating around the neuropsychiatric unit, hanging out with a friend there, speaking, no productive aphasia no receptive aphasia no blurry vision currently no lightheadedness, dizziness, -He does report that when he gets up he is a bit blurry in his right eye but only lasts a few minutes to seconds -I did do a abdominal exam on him he does have cataract in the right eye pupils equal round reactive to light, its difficult for me to see the retina, he will need to have a detailed retinal exam through an parking ramp attendant as outpatient, does have some saccadic eye movements on lateral movement -Extraocular movements intact -I ordered a repeat CT of the head, carotid artery ultrasound, repeat blood work I advised him that he is going to need to follow-up with ophthalmology as outpatient -His CT of his head has showed multiple strokes in the past, including infarcts, in the right thalamus, right park radiata, I am place him on Plavix, he has an aspirin allergy anaphylaxis,, denies any allergic reaction to Plavix -We will try 75 mg of Plavix, monitor closely, EpiPen if needed -Atorvastatin 40 mg at bedtime -Discussed risk and benefits, he voiced understanding, all questions answered, agreed to proceed -We will continue to monitor. Neuropsychiatric unit monitor blood pressures closely -I think that his vertigo is likely benign positional vertigo, will continue maneuvers, meclizine as needed Attestations Medical Necessity Statement*: Patient requires hospitalization for psychosis, now with right eye blurry vision, benign positional vertigo, hypertension, and High Time for a total of 60 minutes, includes reviewing past or interval history, examining/interviewing patient, placing orders, counseling patient/family/other support, updating patient/family/other support, discussing plan of care with staff, communicating with other healthcare providers, documenting encounter and coordinating care Diagnoses Hypertensive urgency I16.0 Acute psychosis F23 NSTEMI (non-ST elevated myocardial infarction) I21.4 Acute kidney injury superimposed on CKD N17.9; N18.9 LVH (left ventricular hypertrophy) I51.7 Multiple lacunar infarcts I63.81 Benign positional vertigo H81.10 Blurry vision, right eye H53.8
[2023-05-27] MEDS: clopidogrel 75 mg Tablet PO (18:23)
[2023-05-27] MEDS: chlorthalidone 25 mg Tablet 12.5 MG PO (18:23)
[2023-05-27 20:00] VITALS: BP 153/73; PULSE 67; RESP 17; TEMP 36.7
[2023-05-27 20:46] VITALS: BP 153/73; PULSE 67; RESP 17; TEMP 36.7; O2SAT 99
[2023-05-27] MEDS: atorvastatin 40 mg Tablet PO (20:50)
[2023-05-28] VITALS (7 sets, daily range): BP systolic 135–207; BP diastolic 82–125; PULSE 56–117; RESP 16–20; TEMP 36.4–36.8; O2SAT 97–99
[2023-05-28] MEDS: amlodipine 10 mg Tablet PO (08:37)
[2023-05-28] MEDS: tamsulosin 0.4 mg Capsule PO (08:37)
[2023-05-28 09:39] LABS: Blood Urea Nitrogen 34 mg/dL (6-20); Calcium 9.7 mg/dL (8.5-10.5); Carbon Dioxide 29 mmol/L (22-29); Chloride 105 mmol/L (98-107); Glomerular Filtration Rate 38.8 mL/min (90-130); Glucose 109 mg/dL (65-115); Osmolality Calculated 300 mOsm/kg (285-295); Sodium 141 mmol/L (136-145)
--- NOTE | 2023-05-28 10:02 | PC.OT ---
OT ORDERS RECEIVED FOR OT EVALUATION FOR POSSIBLE BVP; OT DOES NOT ADDRESS THIS; PT DOES. NO FURTHER SKILLED OT NEEDS OTHER THAN EVALUATION FOR GROUP WHICH WILL BE DONE ON TUESDAY.
--- NOTE | 2023-05-28 13:13 | PM.PN ---
Subjective Subjective: Patient was seen this morning, no headache, no blurry vision, no nausea, no vomiting, no chest pain, no palpitations, no fevers, no chills Vitals/I&O/Wt Last Vital Signs Temp 98.1 F 05/27/23 20:46 Pulse 56 L 05/28/23 08:00 Resp 16 05/28/23 08:00 BP 154/85 05/28/23 08:00 Pulse Ox 98 05/28/23 06:00 O2 Del Method Room Air 05/28/23 06:00 Physical Exam Const: COMMON NORMALS: no acute distress and patient oriented x3 Resp: COMMON NORMALS: normal respiratory effort, No retractions, No use of accessory muscles and clear to auscultation bilaterally AUSCULTATION: clear to auscultation bilaterally Cardio: COMMON NORMALS: regular rate, regular rhythm, S1 normal heart sound present and S2 normal heart sound present RATE: regular rate RHYTHM: regular rhythm HEART SOUNDS: S1 normal heart sound present and S2 normal heart sound present GI: COMMON NORMALS: Normal to inspection, nondistended, normoactive bowel sounds present and non-tender Extremity: COMMON NORMALS: no pedal edema Neuro: COMMON NORMALS: patient oriented x3 Psych: COMMON NORMALS: mental status grossly normal Data 05/27/23 16:22 05/28/23 08:56 A&P Assessment and plan (1) Hypertensive urgency: (2) Acute psychosis: (3) NSTEMI (non-ST elevated myocardial infarction): (4) Acute kidney injury superimposed on CKD: (5) LVH (left ventricular hypertrophy): (6) Multiple lacunar infarcts: (7) Benign positional vertigo: (8) Blurry vision, right eye: Plan Hypertensive urgency - CT of the head, multiple lacunar infarcts, repeat head CT no acute findings, carotid artery Doppler ultrasound no significant stenosis, needs blood pressure monitoring, start Plavix, and atorvastatin -For his blurry vision we will need to follow-up with ophthalmology -Likely benign positional vertigo, monitor -NSTEMI, likely cardiac stress, likely type II from hypertension however cannot rule out underlying cardiac etiology needs to follow-up with cardiology on discharge, monitor -Cardiac echo shows LVH, needs to follow-up with cardiology -On Norvasc, on chlorthalidone, on clonidine -Slowly titrate blood pressure -AYDEN, on chronic kidney disease need to follow-up with nephrology monitor kidney function -Full code -Currently in neuropsychiatric unit Acute psychosis as per psychiatry, 96-hour hold, one-to-one observation Plan for today, blood pressure management Attestations Medical Necessity Statement*: Patient requires hospitalization for hypertensive urgency, BPV, history of multiple lacunar infarcts, LVH, AYDEN, creatinine 1.8, need to monitor creatinine Diagnoses Hypertensive urgency I16.0 Acute psychosis F23 NSTEMI (non-ST elevated myocardial infarction) I21.4 Acute kidney injury superimposed on CKD N17.9; N18.9 LVH (left ventricular hypertrophy) I51.7 Multiple lacunar infarcts I63.81 Benign positional vertigo H81.10 Blurry vision, right eye H53.8
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
[2023-05-28] MEDS: nicotine 21 mg Patch 1 PATCH TRANSDERMA (13:58)
[2023-05-28] MEDS: clopidogrel 75 mg Tablet PO (16:41)
[2023-05-28] MEDS: chlorthalidone 25 mg Tablet 12.5 MG PO (17:45)
[2023-05-28] MEDS: atorvastatin 40 mg Tablet PO (20:17)
--- NOTE | 2023-05-28 22:23 | PC.NURSE ---
Called to pt room for c/o chest pain that is radiating down BUE. Staple Laster equal, no tongue deviation or facial droop. FEDER[place]. Stat EKG in progress at this time. Pt is HTN w/auto b/p of 207/125 and manual of 200/[address] Arias called regarding pt c/o CP and previous hx of NSTEMI and CVA. Awaiting call back w/orders.
--- NOTE | 2023-05-28 22:26 | ECG_ITS ---
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 Measurements Intervals [place] Rate: 107 P: 144 [place]: 130 QRS: 130 QRSD: 97 T: 135 QT: 309 QTc: 413 Interpretive Statements SINUS TACHYCARDIA ARM LEADS REVERSED [INVERTED P AND QRS IN I] ABNORMAL RHYTHM ECG Compared to ECG 05/26/2023 10:41:51 Sinus bradycardia no longer present ST (T wave) deviation no longer present Electronically Signed On 05-29-2023 21:00:23 CDT by Carlos Landeros M.D. [email or web address] [email or web address]/store/OM/[id number]
--- NOTE | 2023-05-28 22:38 | PC.NURSE ---
EKG completed w/reading of sinus tachycardia. Dr. Arias called back to gather more information and pt status. NO received and noted for serial trops. Lab notified of stat draw needed.
--- NOTE | 2023-05-28 23:11 | PC.NURSE ---
Received call back from Dr. Arias w/NO received and noted to 1) administer hydralizine 10mg IVP x 1 2) recheck b/p 1 hr.
[2023-05-28] MEDS: hyDRALAzine 20 mg/mL INJ 1 mL 10 MG IVP (23:14)
--- NOTE | 2023-05-28 23:27 | PC.NURSE ---
IVP hydralizine administered per orders, IV cath d/c'd w/tip intact.
[2023-05-28 23:49] LABS: Troponin T (5th) Once 26 ng/L (0-15)
[2023-05-29] VITALS (36 sets, daily range): BP systolic 119–204; BP diastolic 72–108; PULSE 68–118; RESP 12–29; TEMP 36.7; O2SAT 92–99
--- NOTE | 2023-05-29 01:30 | PC.NURSE ---
NO received and noted to transfer pt to CSU. Report given to Sydni. Pt stable, being transferred to CSU via w/c.
[2023-05-29] MEDS: hyDRALAzine 25 mg Tablet PO ×3 (01:55→15:26)
[2023-05-29] MEDS: labetalol 5 mg/mL SDV 20mL 10 MG IVP (01:55)
[2023-05-29 04:58] LABS: Troponin T (5th) Once 27 ng/L (0-15)
[2023-05-29 06:10] LABS: Troponin T (5th) Once 33 ng/L (0-15)
[2023-05-29] MEDS: chlorthalidone 25 mg Tablet PO (08:36)
[2023-05-29] MEDS: tamsulosin 0.4 mg Capsule PO (08:36)
[2023-05-29] MEDS: amlodipine 10 mg Tablet PO (08:36)
[2023-05-29 10:21] LABS: Anion Gap 13.6 (5-19); Blood Urea Nitrogen 35 mg/dL (6-20); Calcium 9.5 mg/dL (8.5-10.5); Carbon Dioxide 26 mmol/L (22-29); Chloride 104 mmol/L (98-107); Creatinine Clr Calc Pharmacy 46.4104; Glomerular Filtration Rate 41.5 mL/min (90-130); Glucose 131 mg/dL (65-115); Osmolality Calculated 300 mOsm/kg (285-295); Potassium 3.6 mmol/L (3.5-5.1); Sodium 140 mmol/L (136-145)
--- NOTE | 2023-05-29 13:16 | ECG_ITS ---
[facility] Test Date: 2023-05-29 Pat Name: Jason Castro Department: Room: 112 Gender: Male Clay Transporter: : 1965 Requested By: Bill Kirkpatrick Order Number: [id number] Samia MD: Carlos Landeros M.D. Measurements Intervals [place] Rate: 77 P: 148 NV: 136 QRS: 142 QRSD: 100 T: 151 QT: 378 QTc: 429 Interpretive Statements SINUS RHYTHM ARM LEADS REVERSED [INVERTED P AND QRS IN I] Compared to ECG 05/28/2023 22:26:28 Sinus tachycardia no longer present Electronically Signed On 05-29-2023 21:01:48 CDT by Carlos Landeros M.D. [id number]
--- NOTE | 2023-05-29 13:26 | ECG_ITS ---
[facility] Test Date: 2023-05-29 Pat Name: Jason Castro Department: Room: 112 Gender: Male Media Services Director: : 1965 Requested By: Bill Kirkpatrick Order Number: [id number] Samia MD: Carlos Landeros M.D. Measurements Intervals [place] Rate: 82 P: 69 RI: 142 QRS: 53 QRSD: 97 T: 97 QT: 366 QTc: 429 Interpretive Statements SINUS RHYTHM ST DEVIATION AND MODERATE T-WAVE ABNORMALITY, CONSIDER LATERAL ISCHEMIA [-0.1+ mV T-WAVE IN I/aVL/V5/V6] INTERPRETATION BASED ON A DEFAULT AGE OF 40 YEARS Compared to ECG 05/29/2023 13:19:16 T-wave abnormality now present Possible ischemia now present Electronically Signed On 05-30-2023 21:41:09 CDT by Carlos Landeros M.D. [id number]
--- NOTE | 2023-05-29 13:42 | W.PM.NPUPNS ---
Subjective NPU Subjective: Patient presented today reporting that he is feeling okay. He reports that his father struggled with heart attacks and high blood pressure. He denied having any issues or concerns related to pain or symptoms consistent with heart attack prior to admission, but we discussed his lack of insight into the circumstances and reports of concerns of mini strokes at least raising the question of what contributed to his presentation. He continues to report an absence of psych history prior to this episode. Mental Status Exam MSE Comments: This is an underweight white male, in hospital scrubs, with limited grooming and eye contact. No abnormal movements except for mild psychomotor retardation. Cooperative with exam in mild distress. Speech was slightly decreased rate and volume. Mood described okay but not sure why I am here; affect congruent, odd and somewhat confused. Thought process, mostly organized. Thought content: patient denied any current suicidal or homicidal ideation, there were no delusions reported or noted, patient denied auditory or visual hallucinations. Attention and concentration appeared intact, and memory appeared limited, but none were formally tested.? He was alert and oriented times person and place. Insight, judgment and impulse control appear limited. Vitals/I&O/Wt Last Vital Signs Temp 98.0 F 05/29/23 07:35 Pulse 83 05/29/23 12:04 Resp 18 05/29/23 12:04 BP 164/95 05/29/23 12:04 Pulse Ox 97 05/29/23 12:04 O2 Del Method Room Air 05/29/23 12:04 05/28/23 05/29/23 05/29/23 22:59 06:59 14:59 Intake Total 120 / 120 480 / 480 Output Total 640 / 640 1270 / 1270 Balance -520 / -520 -790 / -790 Weight last 48 hrs Weight 65.828 kg Data NPU 05/30/23 02:07 05/30/23 02:07 A&P Assessment and plan (1) Benign positional vertigo: (2) Acute kidney injury superimposed on CKD: (3) Hypertensive urgency: (4) Homicidal thoughts: (5) Acute psychosis: (6) Altered mental status: Plan This is a 58-year-old male, who denies any history of mental health or addiction issues who presents on a 96-hour hold with reports of odd behavior but patient denies any aggressive or agitated behavior. 1. Continue current medication. We will try to get some collateral information. 2. Will monitor for when is appropriate or necessary for return to psychiatric unit. 3. Continue one-to-one while off the psychiatric unit. 4. We will continue to follow on CSU. Involuntary Hold Information 96 Hour Hold: 96 Hour Involuntary Admission: Yes 96 Hour Hold Ending Date: 05/31/23 96 Hour Hold Ending Time: 17:28 Attestations NPU Medical Necessity Statement*: Inpatient hospitalization is medically necessary and the clinically appropriate intervention, at this time. We will monitor medications and make changes as indicated. Likely length of stay is 2-4 days. Coding Level of Care Code Acute Code for Chg Fwd Diagnoses Benign positional vertigo H81.10 Acute kidney injury superimposed on CKD N17.9; N18.9 Hypertensive urgency I16.0 Homicidal thoughts R45.850 Acute psychosis F23 Altered mental status R41.82
[2023-05-29] MEDS: nitroglycerin 0.4 mg sublingual Tablet SUBLINGUAL ×3 (13:49→15:25)
[2023-05-29 15:15] LABS: Troponin(5th) Baseline 25 ng/L (0-15)
[2023-05-29] MEDS: clopidogrel 75 mg Tablet PO (17:25)
--- NOTE | 2023-05-29 17:41 | PM.PN ---
Subjective Subjective: - Patient was examined this morning -Overnight he was transferred to cardiac stepdown unit due to hypertension -Currently he denies any headache, blurry vision, did have some left chest pain -Throughout the evening patient had complaints of left-sided chest pain, Vitals/I&O/Wt Last Vital Signs Temp 98.0 F 05/29/23 07:35 Pulse 76 05/29/23 15:56 Resp 14 05/29/23 15:56 BP 119/72 05/29/23 15:56 Pulse Ox 98 05/29/23 15:56 O2 Del Method Room Air 05/29/23 15:56 05/29/23 05/29/23 05/29/23 06:59 14:59 22:59 Intake Total 120 / 120 720 / 720 Output Total 640 / 640 1270 / 1270 Balance -520 / -520 -550 / -550 Weight last 48 hrs Weight 65.828 kg Physical Exam Const: COMMON NORMALS: no acute distress and patient oriented x3 Resp: COMMON NORMALS: normal respiratory effort, No retractions, No use of accessory muscles and clear to auscultation bilaterally AUSCULTATION: clear to auscultation bilaterally Cardio: COMMON NORMALS: regular rate, regular rhythm, S1 normal heart sound present and S2 normal heart sound present RATE: regular rate RHYTHM: regular rhythm HEART SOUNDS: S1 normal heart sound present and S2 normal heart sound present GI: COMMON NORMALS: Normal to inspection, nondistended, normoactive bowel sounds present and non-tender Extremity: COMMON NORMALS: no pedal edema Neuro: COMMON NORMALS: patient oriented x3 Psych: COMMON NORMALS: mental status grossly normal Data 05/27/23 16:22 05/29/23 09:24 A&P Assessment and plan (1) Hypertensive urgency: (2) Acute psychosis: (3) NSTEMI (non-ST elevated myocardial infarction): (4) Acute kidney injury superimposed on CKD: (5) LVH (left ventricular hypertrophy): (6) Multiple lacunar infarcts: (7) Benign positional vertigo: (8) Blurry vision, right eye: (9) Chest pain: Plan Hypertensive urgency - CT of the head, multiple lacunar infarcts, repeat head CT no acute findings, carotid artery Doppler ultrasound no significant stenosis, needs blood pressure monitoring, start Plavix, and atorvastatin -For his blurry vision we will need to follow-up with ophthalmology -Likely benign positional vertigo, monitor -NSTEMI, likely cardiac stress, likely type II from hypertension however cannot rule out underlying cardiac etiology needs to follow-up with cardiology on discharge, monitor -Cardiac echo shows LVH, needs to follow-up with cardiology -On Norvasc, on chlorthalidone, on clonidine, Lodine added overnight, added Coreg -Slowly titrate blood pressure -AYDEN, on chronic kidney disease need to follow-up with nephrology monitor kidney function -Now with left-sided chest pain, baseline troponin 25, EKG showing ST depressions in the lateral leads, complaints of recurrent chest pain -Continue Plavix, statin, allergy to aspirin, nitro as needed -N.p.o. midnight, for cardiac stress test tomorrow morning -Full code -Currently in neuropsychiatric unit Acute psychosis as per psychiatry, 96-hour hold, one-to-one observation Plan for today, blood pressure management Attestations Medical Necessity Statement*: Patient requires hospitalization due to chest pain, with EKG changes, with ST depressions lateral leads, NSTEMI, elevated troponin, will proceed with stress testing, hypertension, blood pressure control Diagnoses Hypertensive urgency I16.0 Acute psychosis F23 NSTEMI (non-ST elevated myocardial infarction) I21.4 Acute kidney injury superimposed on CKD N17.9; N18.9 LVH (left ventricular hypertrophy) I51.7 Multiple lacunar infarcts I63.81 Benign positional vertigo H81.10 Blurry vision, right eye H53.8 Chest pain R07.9
[2023-05-29] MEDS: carvedilol 3.125 mg Tablet PO (18:30)
--- NOTE | 2023-05-29 19:46 | ECG_ITS ---
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 Measurements Intervals [place] Rate: 82 P: 149 [place]: 139 QRS: 143 QRSD: 98 T: 151 QT: 369 QTc: 433 Interpretive Statements SINUS RHYTHM ARM LEADS REVERSED [INVERTED P AND QRS IN I] Compared to ECG 05/29/2023 13:16:50 No significant changes Electronically Signed On 05-30-2023 21:40:59 CDT by Carlos Landeros M.D. [id number]
[2023-05-29] MEDS: atorvastatin 40 mg Tablet PO (20:21)
[2023-05-29] MEDS: hyDRALAzine 10 mg Tablet PO (20:21)
[2023-05-29 21:21] LABS: Troponin 5 6HR 29.92 ng/L (0-15)
[2023-05-29 21:26] LABS: Troponin 5 6HR Delta 4.92 ng/L (0-12)
[2023-05-30] VITALS (7 sets, daily range): BP systolic 116–166; BP diastolic 71–100; PULSE 57–90; RESP 11–21; TEMP 36.7–37; O2SAT 91–97
[2023-05-30 03:06] LABS: Basophils % 0.5 %; Eosinophils # 0.3 10^3/uL (0.0-0.8); Eosinophils % 4.9 %; Hematocrit 35.8 % (42.0-52.0); Hemoglobin 11.4 g/dL (11.7-16.6); Lymphocytes # 1.5 10^3/uL (0.8-4.8); Lymphocytes % 26.1 %; Mean Corpuscular HGB Conc 31.8 g/dL (30.0-36.0); Mean Corpuscular Volume 91.1 fl (80-94); Mean Platelet Volume 10.4 fL (7.4-10.4); Monocytes # 0.4 10^3/uL (0.2-0.9); Monocytes % 7.2 %; Neutrophils # 3.58 10^3/uL (1.8-7.7); Nucleated Red Blood Cells % 0 %; Platelet Count 233 10^3/cmm (130-400); Red Blood Count 3.93 10^6/uL (4.1-5.3); Red Cell Distribution Width 14.3 % (12.1-15.1); White Blood Count 5.9 10^3/uL (4.0-10.0)
[2023-05-30 03:27] LABS: Magnesium 2.2 mg/dL (1.7-2.3)
[2023-05-30 03:33] LABS: Anion Gap 13.9 (5-19); Blood Urea Nitrogen 38 mg/dL (6-20); Calcium 9.2 mg/dL (8.5-10.5); Carbon Dioxide 26 mmol/L (22-29); Chloride 103 mmol/L (98-107); Creatinine Clr Calc Pharmacy 46.4104; Glomerular Filtration Rate 41.5 mL/min (90-130); Glucose 92 mg/dL (65-115); NT Pro B Type Natriuretic Pept 855 pg/mL (0-125); Osmolality Calculated 297 mOsm/kg (285-295); Potassium 3.9 mmol/L (3.5-5.1); Sodium 139 mmol/L (136-145)
--- NOTE | 2023-05-30 06:48 | ECG_ITS ---
[facility] Test Date: 2023-05-30 Pat Name: Jason Castro Department: Room: 112 Gender: Male Summer Law Associate: Jesica Camara : 1965 Requested By: Bill Kirkpatrick Order Number: [id number] Samia MD: Carlos Landeros M.D. Interpretive Statements NAME OF STUDY: LEXISCAN SESTAMIBI STRESS TEST INDICATION: Chest Pain, PROCEDURE: At the baseline, the EKG revealed normal sinus rhythm with a heart rate of 69 bpm. Features of LVH.. The baseline heart was 62 bpm with a blood pressue of 158/99 mm of Hg Lexiscan was infused over a period of 20 seconds. A total of 0.4 milligrams of Lexiscan was infused. The stress phase was continued for a total of 5 minutes. Heart rate at the end of the stress phase was 95 bpm with a blood pressure 139/86 mm of Hg. The EKG at the peak infusion revealed no significant changes. Sestamibi was injected 20 seconds after the Lexiscan infusion. Heart rate at the end of the recovery phase was 89 bpm with a blood pressure of 161/90 mm of Hg. CONCLUSION: 1. No significant EKG changes with the LexiScan infusion 2. No LexiScan induced chest pain or cardiac arrhythmia 3. Normal blood pressure and heart rate response 4. Sestamibi/sestamibi perfusion scan pending; see separate report. Electronically Signed On 05-31-2023 8:46:18 CDT by Carlos Landeros M.D. [id number]
[2023-05-30] MEDS: regadenoson 0.4 Mg/5 ml Syringe IVP (07:20)
--- NOTE | 2023-05-30 08:18 | PC.OT ---
OT EVALUATION ORDERS FOR GROUP RECEIVED. PATIENT IS OFF UNIT ON CSU, WILL HOLD THESE ORDERS UNTIL HER RETURNS TO NPU.
[2023-05-30] MEDS: chlorthalidone 25 mg Tablet PO (09:03)
[2023-05-30] MEDS: carvedilol 3.125 mg Tablet PO ×2 (09:03→17:34)
[2023-05-30] MEDS: tamsulosin 0.4 mg Capsule PO (09:03)
[2023-05-30] MEDS: amlodipine 10 mg Tablet PO (09:03)
[2023-05-30] MEDS: hyDRALAzine 10 mg Tablet PO ×3 (09:03→21:07)
--- NOTE | 2023-05-30 10:29 | PC.SOCIAL ---
[facility] IMM update: Pg 2 of [facility] dated and reviewed with pt. Copy provided. Copy dated, initialed and placed in hcart at 845 am.
[2023-05-30] MEDS: acetaminophen 325 mg Tablet 650 MG PO (12:08)
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
--- NOTE | 2023-05-30 13:46 | NMCV_ITS ---
NM brain perf SPECT r/s* [id number] Jason Castro Age: 58 Gender: M : 1965 Exam Date: 05/30/2023 06:32 Ordering Phys: Bill Kirkpatrick MD Technologist: STEPHANIE Encarnacion Exam Location: [facility] Indications: CHEST PAIN STRESS TEST Please see separate stress test report in [facility] for full findings IMAGE PROTOCOL Rest/Stress 1 Lexiscan Day Radiopharmaceutical Dose (mCi) Administration Site Administered by Rest: Tc-99m 11.0 IV STEPHANIE Paez Sestamibi Stress:Tc-99m 32.5 IV STEPHANIE Paez Sestamibi Rest: 30-May-2023 60 Discovery 630 Stress: 30-May-2023 30 Discovery 630 0.4mg Lexiscan. Images obtained in supine and prone position. SPECT RESULTS Technical Quality: Excellent Raw Data Analysis: Normal Image Corrections: No attenuation or motion correction applied Summed Stress Score: 9 Summed Rest Score: 1 Summed Difference Score: 8 PERFUSION FINDINGS Moderate area of minimal to moderately decreases uptake was noted in the basal and mid inferior, inferolateral, apical lateral and mid anterolateral segments. Significant reversibility was noted in these regions. FUNCTIONAL RESULTS (calculated via Gated SPECT) Stress Image LV EF (%): 49 Stress EDV (mL):150 TID: 1 Stress ESV (mL):76 FUNCTIONAL FINDINGS: Segmental wall motion analysis revealed diffuse hypokinesia of the septal segment. IMPRESSIONS 1. Myocardial perfusion imaging revealing moderate area of minimal to moderately decreased tracer uptake involving the inferior, inferolateral, anterolateral and apical lateral regions with Significant with reversibility suggesting ischemia in the distribution of the left circumflex artery and right coronary artery. 2. Slightly diminished left ventricular ejection fraction of 49%. 3. LV wall motion analysis revealing moderate diffuse hypokinesia of the septum. 4. Mildly dilated LV cavity with an end-systolic volume of 76 ml. No similar previous studies are available for comparison Dr Carlos Landeros MD FAC (Electronically Signed) Final Date: 30 May 2023 09:06 S
--- NOTE | 2023-05-30 16:44 | PM.PN ---
Subjective Subjective: - Patient was seen this morning, currently chest pain-free -However does report intermittent chest pain throughout the night -I had a detailed discussion with him about his cardiac stress test, showed evidence of ischemia along left circumflex and RCA territory, with wall motion abnormalities along the septum -Discussed our concerns for coronary ischemia, given his complaints of chest pain -His creatinine is 1.6 the chronicity of his elevated creatinine is unknown, -But given his hypertension, he likely has CKD, due to uncontrolled hypertension -Discussed risks associated with coronary angiography including but not limited to heart attacks, strokes, and being put on dialysis with his CKD -After discussing the risk and benefits, he voiced understanding, all questions answered, agreed to cardiology consultation and coronary angiography if cardiology deems it appropriate -We will plan to continue to monitor for chest pain, he is agreeable -Spoke to cardiology, Dr. cancino, will consult -Denies suicidal ideation, denies homicidal ideation, denies seeing hearing things are not there, he answers questions appropriately, he is fairly informative, -Spoke to Dr. Cadena Vitals/I&O/Wt Last Vital Signs Temp 98.0 F 05/30/23 13:44 Pulse 58 L 05/30/23 13:44 Resp 21 H 05/30/23 13:44 BP 166/100 05/30/23 13:44 Pulse Ox 92 05/30/23 13:44 O2 Del Method Room Air 05/30/23 13:44 05/30/23 05/30/23 05/30/23 06:59 14:59 22:59 Intake Total 960 / 960 Balance 960 / 960 Weight last 48 hrs Weight 65.828 kg Physical Exam Const: COMMON NORMALS: no acute distress and patient oriented x3 Resp: COMMON NORMALS: normal respiratory effort, No retractions, No use of accessory muscles and clear to auscultation bilaterally AUSCULTATION: clear to auscultation bilaterally Cardio: COMMON NORMALS: regular rate, regular rhythm, S1 normal heart sound present and S2 normal heart sound present RATE: regular rate RHYTHM: regular rhythm HEART SOUNDS: S1 normal heart sound present and S2 normal heart sound present GI: COMMON NORMALS: Normal to inspection, nondistended, normoactive bowel sounds present and non-tender Extremity: COMMON NORMALS: no pedal edema Neuro: COMMON NORMALS: patient oriented x3 Psych: COMMON NORMALS: mental status grossly normal Data 07/17/23 02:07 05/30/23 02:07 A&P Assessment and plan (1) Hypertensive urgency: (2) Acute psychosis: (3) NSTEMI (non-ST elevated myocardial infarction): (4) Acute kidney injury superimposed on CKD: (5) LVH (left ventricular hypertrophy): (6) Multiple lacunar infarcts: (7) Benign positional vertigo: (8) Blurry vision, right eye: (9) Chest pain: Plan Hypertensive urgency - CT of the head, multiple lacunar infarcts, repeat head CT no acute findings, carotid artery Doppler ultrasound no significant stenosis, needs blood pressure monitoring, start Plavix, and atorvastatin -For his blurry vision we will need to follow-up with ophthalmology -Likely benign positional vertigo, monitor -NSTEMI, likely cardiac stress, likely type II from hypertension however cannot rule out underlying cardiac etiology needs to follow-up with cardiology on discharge, monitor -Cardiac echo shows LVH, needs to follow-up with cardiology -On Norvasc, on chlorthalidone, on clonidine, Lodine added overnight, added Coreg -Slowly titrate blood pressure -AYDEN, on chronic kidney disease need to follow-up with nephrology monitor kidney function -Now with left-sided chest pain, baseline troponin 25, EKG showing ST depressions in the lateral leads, complaints of recurrent chest pain -Continue Plavix, statin, allergy to aspirin, nitro as needed Cardiac stress test -1.? Myocardial perfusion imaging revealing moderate area of minimal to ?moderately decreased tracer uptake involving the inferior, inferolateral, ?anterolateral and apical lateral regions with Significant with reversibility ?suggesting ischemia in the distribution of the left circumflex artery and right ?coronary artery. ?2.? Slightly diminished left ventricular ejection fraction of 49%. ?3.? LV wall motion analysis revealing moderate diffuse hypokinesia of the ?septum. ?4.? Mildly dilated LV cavity with an end-systolic volume of 76 ml. ?No similar previous studies are available for comparison -Cardiology consulted -Full code -Lovenox for DVT prophylaxis Acute psychosis as per psychiatry, 96-hour hold, one-to-one observation Plan for today, blood pressure management Attestations Medical Necessity Statement*: Patient requires hospitalization for chest pain, positive stress test, undergoing cardiology evaluation for possible coronary angiography Diagnoses Hypertensive urgency I16.0 Acute psychosis F23 NSTEMI (non-ST elevated myocardial infarction) I21.4 Acute kidney injury superimposed on CKD N17.9; N18.9 LVH (left ventricular hypertrophy) I51.7 Multiple lacunar infarcts I63.81 Benign positional vertigo H81.10 Blurry vision, right eye H53.8 Chest pain R07.9
[2023-05-30] MEDS: enoxaparin 40 mg/0.4 mL Syringe SUBCUT (17:34)
[2023-05-30] MEDS: clopidogrel 75 mg Tablet PO (17:34)
--- NOTE | 2023-05-30 17:42 | W.PM.NPUPNS ---
Subjective NPU Subjective: Patient presented today reporting that he is aware of his procedure tomorrow. We discussed the fact that the primary medical team believes he may be prepared for discharge on Tuesday. We discussed the possibility of moving him back over to the neuropsychiatric unit and utilizing our social workers to assist in safe discharge planning. He reports he is very appreciative that he was in the hospital to be able to have these procedures so that he is doing better already from that perspective. He reports that he is eating and sleeping fine. Mental Status Exam MSE Comments: This is an underweight white male, in hospital scrubs, with limited grooming and eye contact. No abnormal movements except for mild psychomotor retardation. Cooperative with exam in mild distress. Speech was slightly decreased rate and volume. Mood described okay; affect congruent, and less odd. Thought process, mostly organized. Thought content: patient denied any current suicidal or homicidal ideation, there were no delusions reported or noted, patient denied auditory or visual hallucinations. Attention and concentration appeared intact, and memory appeared limited, but none were formally tested.? He was alert and oriented times person and place. Insight, judgment and impulse control appear limited. Vitals/I&O/Wt Last Vital Signs Temp 98.0 F 05/30/23 13:44 Pulse 58 L 05/30/23 13:44 Resp 21 H 05/30/23 13:44 BP 166/100 05/30/23 13:44 Pulse Ox 92 05/30/23 13:44 O2 Del Method Room Air 05/30/23 13:44 05/30/23 05/30/23 14:59 22:59 Intake Total 960 / 960 Balance 960 / 960 Weight last 48 hrs Weight 65.828 kg Data NPU 05/31/23 03:35 05/31/23 03:35 A&P Assessment and plan (1) Benign positional vertigo: (2) Acute kidney injury superimposed on CKD: (3) Hypertensive urgency: (4) Homicidal thoughts: (5) Acute psychosis: (6) Altered mental status: Plan This is a 58-year-old male, who denies any history of mental health or addiction issues who presents on a 96-hour hold with reports of odd behavior but patient denies any aggressive or agitated behavior. 1. Continue current medication. We will try to get some collateral information. 2. Will monitor for when is appropriate or necessary for return to psychiatric unit. 3. Continue one-to-one while off the psychiatric unit. 4. We will continue to follow on CSU. Involuntary Hold Information 96 Hour Hold: 96 Hour Involuntary Admission: Yes 96 Hour Hold Ending Date: 05/31/23 96 Hour Hold Ending Time: 17:28 Attestations NPU Medical Necessity Statement*: Inpatient hospitalization is medically necessary and the clinically appropriate intervention, at this time. We will monitor medications and make changes as indicated. Likely length of stay is 1-3 days. Coding Level of Care Code Acute Code for Chg Fwd Diagnoses Benign positional vertigo H81.10 Acute kidney injury superimposed on CKD N17.9; N18.9 Hypertensive urgency I16.0 Homicidal thoughts R45.850 Acute psychosis F23 Altered mental status R41.82
[2023-05-30] MEDS: atorvastatin 40 mg Tablet PO (21:06)
[2023-05-31] VITALS (76 sets, daily range): BP systolic 116–180; BP diastolic 69–104; PULSE 48–75; RESP 10–24; TEMP 36.6–37; O2SAT 95–99
[2023-05-31 03:55] LABS: Basophils % 0.6 %; Eosinophils # 0.3 10^3/uL (0.0-0.8); Eosinophils % 5.6 %; Hematocrit 37.1 % (42.0-52.0); Hemoglobin 11.7 g/dL (11.7-16.6); Lymphocytes # 1.5 10^3/uL (0.8-4.8); Lymphocytes % 27.7 %; Mean Corpuscular HGB Conc 31.5 g/dL (30.0-36.0); Mean Corpuscular Volume 91.8 fl (80-94); Mean Platelet Volume 10.4 fL (7.4-10.4); Monocytes # 0.4 10^3/uL (0.2-0.9); Neutrophils % 57.9 %; Nucleated Red Blood Cells % 0 %; Platelet Count 231 10^3/cmm (130-400); Red Blood Count 4.04 10^6/uL (4.1-5.3); Red Cell Distribution Width 14.3 % (12.1-15.1); White Blood Count 5.4 10^3/uL (4.0-10.0)
[2023-05-31 04:23] LABS: Magnesium 2.3 mg/dL (1.7-2.3)
[2023-05-31 04:31] LABS: Blood Urea Nitrogen 45 mg/dL (6-20); Calcium 9.6 mg/dL (8.5-10.5); Carbon Dioxide 27 mmol/L (22-29); Chloride 105 mmol/L (98-107); Glomerular Filtration Rate 38.8 mL/min (90-130); Glucose 109 mg/dL (65-115); NT Pro B Type Natriuretic Pept 299 pg/mL (0-125); Osmolality Calculated 306 mOsm/kg (285-295); Sodium 142 mmol/L (136-145)
[2023-05-31] MEDS: chlorthalidone 25 mg Tablet PO (09:07)
[2023-05-31] MEDS: tamsulosin 0.4 mg Capsule PO (09:07)
[2023-05-31] MEDS: carvedilol 3.125 mg Tablet PO ×2 (09:07→18:02)
[2023-05-31] MEDS: hyDRALAzine 10 mg Tablet PO ×3 (09:08→21:11)
[2023-05-31] MEDS: amlodipine 10 mg Tablet PO (09:08)
[2023-05-31] MEDS: sodium chloride 0.9% 1,000 ML 75 ML IV (09:08)
--- NOTE | 2023-05-31 11:14 | XACV_ITS ---
Exam Room: [facility] Ht: 178 cm Wt: 66 kg BSA: 1.80 m2 Gender: Male : 1965 Any Known Allergies: Asprin Exam Priority: Routine Procedure(s): Procedure Description: Diagnostic procedure Procedure Description: Coronary Angiography Procedure Description: Pressure Wire Diagnostic Cath Status: Urgent Diagnostic Findings * 58 year old male with PMHx of HTN and chronic tobacco abuse (1 can/week) admitted with psych symptoms. He was transferred to medicine floor for uncontrolled HTN, left sided chest pain and underwent stress test that was abnormal in inferior and lateral cage. He c/o retrosternal chest pain with exercise and stress and another pain below his left shoulder blade. Family h/o CAD with bypass and stents in father and sister with stents. Tropoins have been negative. EKG with some lateral ST-T wave changes and echo with LVH and normal LV function. No RWMA. * No disease noted in the Left Main, Right, or Circumflex coronary arteries. * Coronary angiography shows co dominance. * Mid left anterior descending artery with moderate 50-60 % stenosis. He underwent iFR that was found to be hemodynamically insignificant (1.0). PCI Status: Elective PCI LVEF Assessed: No Interventional Findings * Requested to do IFR on mid-LAD. Stress test showed no ischemia in LAD distribution. IFR is 1.0. Conclusions 1. Mid left anterior descending artery with moderate 50-60 % stenosis. He underwent iFR that was found to be hemodynamically insignificant (1.0). Recommendations * Continue current medical management and risk factor modification. * Statin and plavix 75 mg lifelong, if tolerated. Pressures Phase:Rest AO : 153 / 88 ( 113 ) @ 5:09:00 PM 178 / 102 ( 132 ) @ 5:29:00 PM Clinical Evaluation EBL: 5mL-10mL Procedural Details Procedure Consent Obtained. Admit Source: In Patient. Pre-Procedure Time Out. Identified patient by full name and date of as verbalized by the patient/guarantor. Does the consent match the physician's order: Yes. Accurate & Complete Informed Consent: Yes. Inpatient/Outpatient History & Physical on Chart: Yes. If H&P is completed, is and addenduem needed: No; If yes, is the addendum complete: N/A. Visualize and Verify Site with Patient/Guarantor: N/A. Relevant Radiology Images available: Yes. The risks, benefits, and alternatives of sedation and/or procedure were discussed by physician. The patient agrees to continue. Procedure started. [facility] Clinical Fraility Score: 3: Managing Well. 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 Chest Pain Symptom Assessment: Atypical Angina. Correct patient, site and procedure confirmed by cath team. Current diagnosis: Chest Pain, Abnormal stress test. PERRLA. Strong, equal hand administration intern bilaterally. Lungs clear x 5 lobes. IV Site on Arrival: 20 gauge in the right anticubital. IV Fluids: 0.9% NaCl at KVO. 500 mL infused prior to excavation laborer. Pre Procedural Pulses: bilateral radial was 2+. Pre Procedural Pulses: bilateral dorsalis pedis was 3+. Pre Procedural Pulses: bilateral posterior tibial was 3+. Oxygen started at 2liters/min via nasal canula. right radial was prepped with chloroprep then draped in the usual sterile fashion. right groin was prepped with chloroprep then draped in the usual sterile fashion. Physician notified. Baseline sample Acquired. HR: 60 BPM. Physician arrived. Physician scrubbed in. Immediate Pre-Procedure Time Out. Correct Patient: Yes; Correct Procedure: Yes; Correct Site: Yes; Correct Patient Position: Yes; Correct Supplies: Yes; Dried Flammable Prep: Yes; Blood Products Available: No;. Lidocaine 1% infiltrated to the right radial. Arterial access obtained. A 5 swazi TIG catheter in over wire. Multiple views taken of left coronary artery. Catheter redirected to the RCA. Multiple views taken of right coronary artery. Catheter removed over the exchange wire. Dr. Lin arrived to lab to review cine films. Dr. Lin scrubbed in to perform intervention. Add inventory: Co-pilot captain, Endoflator. 6 swazi XB 3 guide catheter was inserted over the wire. iFR pressure guidewire advanced through guide catheter across lesion in mid LAD. iFR spot mid LAD 1.06 mmHg. IFR pressurewire out. Guide catheter out. Post Procedure: Pulses reassessed and unchanged. PERRLA. Strong, equal hand administration intern bilaterally. No VTE prophylaxis required. Medication's Wasted: Heparin = 2000 unit. Medication's Wasted: Lidocaine 1% = 2 mL. Medication's Wasted: Nitro = 49.8 mg. Medication's Wasted: Other = Fentanyl 50mcg, Versed 1 mg. Medication's Wasted: Other = Diphenhydramine 25mg. Total IV fluids: 60 mL. A TR Band was successful obtaining hemostatsis at the Right Radial artery insertion site. Post-op diagnosis: Non-obstructive CAD. Complications: None. Estimated blood loss: 5mL-10mL. Responsiveness - Normal response to verbal stimuli; alert and oriented, PERRLA. Airway - Unaffected, no intervention required; spontaneous ventilation. Circulation: W/N/L, pulses unchanged. Nausea/Vomiting: No. Procedure completed. Patient transferred by wheelchair to 1st floor. Vital chart was stopped. Access Site Site: Right Radial artery Sheath Size: 6 Fr Hemostasis Method: TR Band Hemostasis Success: Successful Complication Findings: No complications occurred during the procedure. Intra/Post-Procedure Events Stroke - Undetermined: No Cardiac Arrest: No Procedure Medications Start: 3:54 PM Stop: 3:54 PM Medication: Diphendryamine Amount: 25 mg Route: I.V. Start: 3:54 PM Stop: 3:54 PM Medication: Versed Amount: 1 mg Route: I.V. Start: 3:54 PM Stop: 3:54 PM Medication: Fentanyl Amount: 50 mcg Route: I.V. Start: 4:06 PM Stop: 4:06 PM Medication: Nitrogylcerin Amount: 200 mcg Route: I.A. Start: 4:08 PM Stop: 4:08 PM Medication: Heparin Amount: 4000 units Route: I.V. I, the attending physician, have reviewed and verified all procedure medications. Yes, all medications given per verbal order History/Risk Factors Hypertension: Yes Dyslipidemia: No Peripheral Arterial Disease (PAD): No Myocardial Infarction (WA): No Obesity: No Renal Disease: No Prior Interventions PCI: No CABG: No Valve Surgery: No Report Signatures Diagnostic Workflow Finalized by Heidi Dawson MD on 06/10/2023 03:27 AM Interventional Workflow Finalized by Dr. Joshua Lin MD on 05/31/2023 05:17 PM
[2023-05-31] MEDS: acetaminophen 325 mg Tablet 650 MG PO ×2 (13:46→21:11)
[2023-05-31 15:02] LABS: Anion Gap 14.1 (5-19); Blood Urea Nitrogen 44 mg/dL (6-20); Calcium 9.8 mg/dL (8.5-10.5); Carbon Dioxide 26 mmol/L (22-29); Chloride 102 mmol/L (98-107); Glomerular Filtration Rate 47.9 mL/min (90-130); Glucose 90 mg/dL (65-115); Osmolality Calculated 297 mOsm/kg (285-295); Potassium 4.1 mmol/L (3.5-5.1); Sodium 138 mmol/L (136-145)
[2023-05-31 15:03] LABS: Creatinine Clr Calc Pharmacy 52.5984
--- NOTE | 2023-05-31 16:11 | P.PN_ITS ---
Subjective Subjective: - Patient was seen this morning, he did report one episode of chest pain this morning Vitals/I&O/Wt Last Vital Signs Temp 98.6 F 05/31/23 00:00 Pulse 61 05/31/23 14:00 Resp 20 H 05/31/23 14:00 BP 157/90 05/31/23 14:00 Pulse Ox 95 05/31/23 14:00 O2 Del Method Room Air 05/31/23 14:00 Physical Exam Const: COMMON NORMALS: no acute distress and patient oriented x3 Resp: COMMON NORMALS: normal respiratory effort, No retractions, No use of ac cessory muscles and clear to auscultation bilaterally AUSCULTATION: clear to auscultation bilaterally Cardio: COMMON NORMALS: regular rate, regular rhythm, S1 normal heart sound present and S2 normal heart sound present RATE: regular rate RHYTHM: regular rhythm HEART SOUNDS: S1 normal heart sound present and S2 normal heart sound present GI: COMMON NORMALS: Normal to inspection, nondistended, normoactive bowel sounds present and non-tender Extremity: COMMON NORMALS: no pedal edema Neuro: COMMON NORMALS: patient oriented x3 Psych: COMMON NORMALS: mental status grossly normal Data 05/31/23 03:35 05/31/23 14:17 A&P Assessment and plan (1) Hypertensive urgency: (2) Acute psychosis: (3) NSTEMI (non-ST elevated myocardial infarction): (4) Acute kidney injury superimposed on CKD: (5) LVH (left ventricular hypertrophy): (6) Multiple lacunar infarcts: (7) Benign positional vertigo: (8) Blurry vision, right eye: (9) Chest pain: (10) Abnormal nuclear stress test: Plan Hypertensive urgency - CT of the head, multiple lacunar infarcts, repeat head CT no acute findings, carotid artery Doppler ultrasound no significant stenosis, needs blood pressure monitoring, start Plavix, and atorvastatin -For his blurry vision we will need to follow-up with ophthalmology -Likely benign positional vertigo, monitor -NSTEMI, likely cardiac stress, likely type II from hypertension however cannot rule out underlying cardiac etiology needs to follow-up with cardiology on discharge, monitor -Cardiac echo shows LVH, needs to follow-up with cardiology -On Norvasc, on chlorthalidone, on clonidine, Lodine added overnight, added Coreg -Slowly titrate blood pressure -AYDEN, on chronic kidney disease need to follow-up with nephrology monitor kidney function -Now with left-sided chest pain, baseline troponin 25, EKG showing ST depressions in the lateral leads, complaints of recurrent chest pain -Continue Plavix, statin, allergy to aspirin, nitro as needed Cardiac stress test -1.? Myocardial perfusion imaging revealing moderate area of minimal to ?moderately decreased tracer uptake involving the inferior, inferolateral, ?anterolateral and apical lateral regions with Significant with reversibility ?suggesting ischemia in the distribution of the left circumflex artery and right ?coronary artery. ?2.? Slightly diminished left ventricular ejection fraction of 49%. ?3.? LV wall motion analysis revealing moderate diffuse hypokinesia of the ?septum. ?4.? Mildly dilated LV cavity with an end-systolic volume of 76 ml. ?No similar previous studies are available for comparison -Cardiology consulted -Plans on coronary angiography today -Full code -Lovenox for DVT prophylaxis Acute psychosis as per psychiatry, 96-hour hold, one-to-one observation Plan for today, blood pressure management, monitor for chest pain, coronary ang iography Attestations Medical Necessity Statement*: Patient requires hospitalization for chest pain, NSTEMI Diagnoses Hypertensive urgency I16.0 Acute psychosis F23 NSTEMI (non-ST elevated myocardial infarction) I21.4 Acute kidney injury superimposed on CKD N17.9; N18.9 LVH (left ventricular hypertrophy) I51.7 Multiple lacunar infarcts I63.81 Benign positional vertigo H81.10 Blurry vision, right eye H53.8 Chest pain R07.9 Abnormal nuclear stress test R94.39
--- NOTE | 2023-05-31 16:34 | P.PN_ITS ---
Subjective Subjective: He underwent LHC today via R radial Medications: Reviewed: Yes Vitals/I&O/Wt Last Vital Signs Temp 98.6 F 05/31/23 00:00 Pulse 61 05/31/23 14:00 Resp 20 H 05/31/23 14:00 BP 157/90 05/31/23 14:00 Pulse Ox 95 05/31/23 14:00 O2 Del Method Room Air 05/31/23 14:00 Physical Exam Narrative: Gen: ABAN man laying in bed, NAD HEENT: EOMI, No pallor RS: CTAB/L , No rales or rhonchi CVS: S1, S2 regular, No murmur, rub or gallop PA: Soft, NTND. 2+ BS DIRECTOR OF SEARCH ENGINE OPTIMIZATION: AAOx3, No FND Skin: No rashes or lesions Const: COMMON NORMALS: alert Neuro: SENSORIUM/ORIENTATION: Yes alert Data 05/31/23 03:35 05/31/23 14:17 A&P Assessment and plan (1) Chest pain: Intermittent chest pains and left shoulder blade pains. (2) Abnormal nuclear stress test: Plan for LHC once renal function stabilizes Risks and benefits were discussed with the patients. Alternate management options were discussed with the patient as well. Possible complications including risk of heart attack stroke and , coronary perforation, arrhythmia, cardiac tamponade in urgent CABG, risk of worsening renal function and potential need for dialysis discussed with patient as well. -continue with medical management in the interim -Mid LAD 50% stenosis not significant by iFR (1.06). Normal RCA and LCX. R fer nant circulation. -Aggressive risk factor modification with BP control and stopping tobacco chewing is recommended. (3) Acute kidney injury superimposed on CKD: No prior labs available. creatinine after hydration down to 1.5 (4) LVH (left ventricular hypertrophy): (5) History of hypertension: on amlodipine, coreg, chlorthalidone and low dose hydralazine Plan Acute psychosis Multiple lacunar infarcts Tobacco abuse Attestations Medical Necessity Statement*: As per primary team Coding Level of Care Code Acute Code for g Fwd Diagnoses Chest pain R07.9 Abnormal nuclear stress test R94.39 Acute kidney injury superimposed on CKD N17.9; N18.9 LVH (left ventricular hypertrophy) I51.7 History of hypertension Z86.79
--- NOTE | 2023-05-31 16:35 | W.PM.OPSUD ---
Surgery/Procedure H&P Update DATE OF PROCEDURE: May 31, 2023 DATE H&P PERFORMED: 05/30/23 H&P UPDATE INFORMATION: I have reviewed H&P completed within last 30 days, I have examined patient prior to procedure and No changes to prior documentation PREOP DIAGNOSIS: Abnormal stress test, chest pain PRIMARY INDICATION FOR PROCEDURE: Abnormal stress test, chest pain PATIENT REASSESSED PRIOR TO SEDATION, WITH NO CHANGE NOTED: Yes PHYSICAL EXAM: alert, oriented x 3 and regular rate & rhythm AIRWAY EVAL/ANESTHESIA PLAN: normal airway, ASA III, Monitored Anesthesia and Local Anesthesia
[2023-05-31] MEDS: clopidogrel 75 mg Tablet PO (18:02)
[2023-05-31] MEDS: sodium chloride 0.9% 1,000 ML 100 ML IV ×2 (18:03→21:16)
--- NOTE | 2023-05-31 18:46 | W.PM.NPUPNS ---
Subjective NPU Subjective: Patient presented today reporting being more comfortable. She reports that the staff has been very kind to him on the CSU and we discussed working with the social work team for discharge planning as they are suggesting he may be medically cleared to be off telemetry in the next 24 to 48 hours. We discussed working with either the social work team on the medical side or bring him back to the neuropsychiatric unit to assist him in placement outside of the hospital. He denies any psychiatric symptoms. Mental Status Exam MSE Comments: This is an underweight white male, in hospital scrubs, with limited grooming and eye contact. No abnormal movements except for mild psychomotor retardation. Cooperative with exam in mild distress. Speech was slightly decreased rate and volume. Mood described okay; affect congruent, and less odd. Thought process, mostly organized. Thought content: patient denied any current suicidal or homicidal ideation, there were no delusions reported or noted, patient denied auditory or visual hallucinations. Attention and concentration appeared intact, and memory appeared limited, but none were formally tested.? He was alert and oriented times person and place. Insight, judgment and impulse control appear limited. Vitals/I&O/Wt Last Vital Signs Temp 97.9 F 05/31/23 19:09 Pulse 62 05/31/23 19:09 Resp 14 05/31/23 19:09 BP 136/80 05/31/23 19:09 Pulse Ox 97 05/31/23 19:09 O2 Del Method Room Air 05/31/23 19:09 l Weight last 48 hrs Weight 58.967 kg Data NPU 06/01/23 04:10 06/01/23 04:10 A&P Assessment and plan (1) Benign positional vertigo: (2) Acute kidney injury superimposed on CKD: (3) Hypertensive urgency: (4) Homicidal thoughts: (5) Acute psychosis: (6) Altered mental status: Plan This is a 58-year-old male, who denies any history of mental health or addiction issues who presents on a 96-hour hold with reports of odd behavior but patient denies any aggressive or agitated behavior. 1. Continue current medication. We will try to get some collateral information. 2. Will monitor for when is appropriate or necessary for return to psychiatric unit. 3. Continue one-to-one while off the psychiatric unit. 4. We will continue to follow on CSU. Involuntary Hold Information 96 Hour Hold: 96 Hour Involuntary Admission: Yes 96 Hour Hold Ending Date: 05/31/23 96 Hour Hold Ending Time: 17:28 Attestations NPU Medical Necessity Statement*: Inpatient hospitalization is medically necessary and the clinically appropriate intervention, at this time. We will monitor medications and make changes as indicated. Likely length of stay is 1-3 days. Coding Level of Care Code Acute Code for Chg Fwd Diagnoses Benign positional vertigo H81.10 Acute kidney injury superimposed on CKD N17.9; N18.9 Hypertensive urgency I16.0 Homicidal thoughts R45.850 Acute psychosis F23 Altered mental status R41.82
[2023-05-31] MEDS: atorvastatin 40 mg Tablet PO (21:11)
[2023-06-01] VITALS (8 sets, daily range): BP systolic 132–164; BP diastolic 64–94; PULSE 51–67; RESP 12–20; TEMP 36.4–36.8; O2SAT 95–99
[2023-06-01 04:35] LABS: Basophils % 0.6 %; Eosinophils # 0.3 10^3/uL (0.0-0.8); Eosinophils % 6.3 %; Hematocrit 34.9 % (42.0-52.0); Hemoglobin 10.9 g/dL (11.7-16.6); Lymphocytes # 1.6 10^3/uL (0.8-4.8); Lymphocytes % 29.4 %; Mean Corpuscular HGB Conc 31.2 g/dL (30.0-36.0); Mean Corpuscular Hemoglobin 28.6 pg (28.0-34.0); Mean Corpuscular Volume 91.6 fl (80-94); Mean Platelet Volume 10.5 fL (7.4-10.4); Monocytes # 0.5 10^3/uL (0.2-0.9); Monocytes % 8.9 %; Neutrophils # 2.95 10^3/uL (1.8-7.7); Neutrophils % 54.4 %; Nucleated Red Blood Cells % 0 %; Platelet Count 236 10^3/cmm (130-400); Red Blood Count 3.81 10^6/uL (4.1-5.3); Red Cell Distribution Width 14.2 % (12.1-15.1); White Blood Count 5.4 10^3/uL (4.0-10.0)
[2023-06-01 05:05] LABS: Magnesium 2.1 mg/dL (1.7-2.3)
[2023-06-01 05:12] LABS: Anion Gap 13.3 (5-19); Blood Urea Nitrogen 41 mg/dL (6-20); Calcium 9.1 mg/dL (8.5-10.5); Carbon Dioxide 25 mmol/L (22-29); Chloride 108 mmol/L (98-107); Glomerular Filtration Rate 41.5 mL/min (90-130); Glucose 96 mg/dL (65-115); NT Pro B Type Natriuretic Pept 182 pg/mL (0-125); Osmolality Calculated 304 mOsm/kg (285-295); Potassium 4.3 mmol/L (3.5-5.1); Sodium 142 mmol/L (136-145)
[2023-06-01] MEDS: tamsulosin 0.4 mg Capsule PO (08:08)
[2023-06-01] MEDS: hyDRALAzine 10 mg Tablet PO (08:08)
[2023-06-01] MEDS: carvedilol 3.125 mg Tablet PO ×2 (08:08→17:12)
[2023-06-01] MEDS: amlodipine 10 mg Tablet PO (08:08)
[2023-06-01] MEDS: chlorthalidone 25 mg Tablet PO (08:08)
--- NOTE | 2023-06-01 10:40 | PC.SOCIAL ---
[facility] IMM update: pg 2 of Imm dated and reviewed with pt. Copy provided. Copy dated, initialed and placed in chart. [id number]
--- NOTE | 2023-06-01 11:09 | P.PN_ITS ---
Subjective Subjective: s/p LHC with Mid LAD 50% stenosis not significant by iFR (1.06). Normal RCA and LCX. R dominant circulation. Medications: Reviewed: Yes Vitals/I&O/Wt Last Vital Signs Temp 97.8 F 06/01/23 07:54 Pulse 51 L 06/01/23 07:54 Resp 12 06/01/23 07:54 BP 164/94 06/01/23 07:54 Pulse Ox 98 06/01/23 07:54 O2 Del Method Room Air 06/01/23 07:54 05/31/23 06/01/23 06/01/23 22:59 06:59 14:59 Intake Total 801.667 / 801.667 480 / 1281.667 240 / 240 Output Total 500 / 500 600 / 600 Balance 301.667 / 301.667 480 / 781.667 -360 / -360 Weight last 48 hrs Weight 130 lb Physical Exam Narrative: Gen: ABAN man laying in bed, NAD HEENT: EOMI, No pallor RS: CTAB/L , No rales or rhonchi CVS: S1, S2 regular, No murmur, rub or gallop PA: Soft, NTND. 2+ BS TELEVISION HOST: AAOx3, No FND Skin: No rashes or lesions Const: COMMON NORMALS: alert Neuro: SENSORIUM/ORIENTATION: Yes alert Data 06/01/23 04:10 06/01/23 04:10 A&P Assessment and plan (1) Chest pain: Intermittent chest pains and left shoulder blade pains. (2) Abnormal nuclear stress test: -Mid LAD 50% stenosis not significant by iFR (1.06). Normal RCA and LCX. R dominant circulation. -Aggressive risk factor modification with BP control and stopping tobacco chewing is recommended. -continue plavix and statin -Follow up in 3 months with me in [facility] -follow up in 1 month with me -BMP in 1 week (3) Acute kidney injury superimposed on CKD: creatinine 1.7 (4) LVH (left ventricular hypertrophy): (5) History of hypertension: on amlodipine, coreg, chlorthalidone and low dose hydralazine Plan Non obstructive CAD Acute psychosis Multiple lacunar infarcts Tobacco abuse I will sign off. Please call with questions or concerns. Attestations Medical Necessity Statement*: As per primary team Coding Level of Care Code 30450 Diagnoses Chest pain R07.9 Abnormal nuclear stress test R94.39 Acute kidney injury superimposed on CKD N17.9; N18.9 LVH (left ventricular hypertrophy) I51.7 History of hypertension Z86.79
[2023-06-01] MEDS: hyDRALAzine 25 mg Tablet PO ×2 (13:06→20:25)
--- NOTE | 2023-06-01 13:30 | PC.NURSE ---
report phoned to npu.transferred to npu via w/c at this time.
--- NOTE | 2023-06-01 13:38 | PC.NURSE ---
Patient sinus carlos and lungs clear. During skin assessment a right wrist incision was noted. Dry and intact. Patient states no needs at this time.
--- NOTE | 2023-06-01 16:04 | W.PM.NPUPNS ---
Subjective NPU Subjective: Patient presented today reporting improvement overall and feeling better since his cardiac event. We continue to discuss what is next after discharge. We agreed to a plan of working with social work tomorrow to hopefully create a safe legitimate option for discharge back to his area. He denied significant depression or anxiety or other psychiatric symptoms. Mental Status Exam MSE Comments: This is an underweight white male, in hospital scrubs, with limited grooming and eye contact. No abnormal movements except for mild psychomotor retardation. Cooperative with exam in mild distress. Speech was slightly decreased rate and volume. Mood described okay; affect congruent, and less odd. Thought process, mostly organized. Thought content: patient denied any current suicidal or homicidal ideation, there were no delusions reported or noted, patient denied auditory or visual hallucinations. Attention and concentration appeared intact, and memory appeared limited, but none were formally tested.? He was alert and oriented times person and place. Insight, judgment and impulse control appear limited. Vitals/I&O/Wt Last Vital Signs Temp 97.9 F 06/01/23 11:58 Pulse 57 L 06/01/23 11:58 Resp 17 06/01/23 11:58 BP 151/89 06/01/23 11:58 Pulse Ox 97 06/01/23 11:58 O2 Del Method Room Air 06/01/23 11:58 06/01/23 06/01/23 06/01/23 06:59 14:59 22:59 Intake Total 480 / 1281.667 480 / 480 Output Total 600 / 600 Balance 480 / 781.667 -120 / -120 Weight last 48 hrs Weight 58.967 kg Data NPU 06/01/23 04:10 06/01/23 04:10 A&P Assessment and plan (1) Benign positional vertigo: (2) Acute kidney injury superimposed on CKD: (3) Hypertensive urgency: (4) Homicidal thoughts: (5) Acute psychosis: (6) Altered mental status: Plan This is a 58-year-old male, who denies any history of mental health or addiction issues who presents on a 96-hour hold with reports of odd behavior but patient denies any aggressive or agitated behavior. 1. Continue current medication. We will try to get some collateral information. 2. Return to the neuropsychiatric unit for continued treatment. 3. Resume every 15 minute checks for safety. 4. Encourage individual, group and milieu therapy. 5. Work with social work team for appropriate discharge planning. Patient has a certain which could be consistent withthis cluster a personality disorder or negative symptoms of schizophrenia but have no real collateral history and has been a bit of a hermit and is unclear he can return to the place he was previously living Involuntary Hold Information 96 Hour Hold: 96 Hour Involuntary Admission: Yes 96 Hour Hold Ending Date: 05/31/23 96 Hour Hold Ending Time: 17:28 Attestations NPU Medical Necessity Statement*: Inpatient hospitalization is medically necessary and the clinically appropriate intervention, at this time. We will monitor medications and make changes as indicated. Likely length of stay is 1-3 days. Coding Level of Care Code Acute Code for Chg Fwd Diagnoses Benign positional vertigo H81.10 Acute kidney injury superimposed on CKD N17.9; N18.9 Hypertensive urgency I16.0 Homicidal thoughts R45.850 Acute psychosis F23 Altered mental status R41.82
[2023-06-01] MEDS: clopidogrel 75 mg Tablet PO (17:12)
--- NOTE | 2023-06-01 18:06 | PM.PN ---
Subjective Subjective: - Patient was seen this morning, no chest pain complaints, no shortness of breath, no abdominal pain, no lightheadedness, no dizziness Vitals/I&O/Wt Last Vital Signs Temp 97.9 F 06/01/23 16:10 Pulse 57 L 06/01/23 16:10 Resp 17 06/01/23 16:10 BP 151/89 06/01/23 16:10 Pulse Ox 98 06/01/23 16:00 O2 Del Method Room Air 06/01/23 11:58 06/01/23 06/01/23 06/01/23 06:59 14:59 22:59 Intake Total 480 / 1281.667 480 / 480 Output Total 600 / 600 Balance 480 / 781.667 -120 / -120 Weight last 48 hrs Weight 58.967 kg Physical Exam Const: COMMON NORMALS: no acute distress and patient oriented x3 Resp: COMMON NORMALS: normal respiratory effort, No retractions, No use of accessory muscles and clear to auscultation bilaterally AUSCULTATION: clear to auscultation bilaterally Cardio: COMMON NORMALS: regular rate, regular rhythm, S1 normal heart sound present and S2 normal heart sound present RATE: regular rate RHYTHM: regular rhythm HEART SOUNDS: S1 normal heart sound present and S2 normal heart sound present GI: COMMON NORMALS: Normal to inspection, nondistended, normoactive bowel sounds present and non-tender Extremity: COMMON NORMALS: no clubbing, cyanosis or edema and no pedal edema Neuro: COMMON NORMALS: patient oriented x3 Psych: COMMON NORMALS: mental status grossly normal Data 06/01/23 04:10 06/01/23 04:10 A&P Assessment and plan (1) Hypertensive urgency: (2) Acute psychosis: (3) NSTEMI (non-ST elevated myocardial infarction): (4) Acute kidney injury superimposed on CKD: (5) LVH (left ventricular hypertrophy): (6) Multiple lacunar infarcts: (7) Benign positional vertigo: (8) Blurry vision, right eye: (9) Chest pain: (10) Abnormal nuclear stress test: Plan Hypertensive urgency - CT of the head, multiple lacunar infarcts, repeat head CT no acute findings, carotid artery Doppler ultrasound no significant stenosis, needs blood pressure monitoring, start Plavix, and atorvastatin -For his blurry vision we will need to follow-up with ophthalmology -Likely benign positional vertigo, monitor -NSTEMI, likely cardiac stress, likely type II from hypertension however cannot rule out underlying cardiac etiology needs to follow-up with cardiology on discharge, monitor -Cardiac echo shows LVH, needs to follow-up with cardiology -On Norvasc, on chlorthalidone, on clonidine, hydralazine, added Coreg -Slowly titrate blood pressure -AYDEN, on chronic kidney disease need to follow-up with nephrology monitor kidney function -Now with left-sided chest pain, baseline troponin 25, EKG showing ST depressions in the lateral leads, complaints of recurrent chest pain -Continue Plavix, statin, nitro as needed Cardiac stress test -1.? Myocardial perfusion imaging revealing moderate area of minimal to ?moderately decreased tracer uptake involving the inferior, inferolateral, ?anterolateral and apical lateral regions with Significant with reversibility ?suggesting ischemia in the distribution of the left circumflex artery and right ?coronary artery. ?2.? Slightly diminished left ventricular ejection fraction of 49%. ?3.? LV wall motion analysis revealing moderate diffuse hypokinesia of the ?septum. ?4.? Mildly dilated LV cavity with an end-systolic volume of 76 ml. ?No similar previous studies are available for comparison -Cardiology consulted -Coronary angiography LAD shows 50% lesion, risk factor modification -Full code -Lovenox for DVT prophylaxis Acute psychosis as per psychiatry, 96-hour hold, one-to-one observation Plan for today, blood pressure management, will move to neuropsychiatric unit Attestations Medical Necessity Statement*: Patient requires hospitalization for hypertensive urgency, chest pain, moving to nPU Diagnoses Hypertensive urgency I16.0 Acute psychosis F23 NSTEMI (non-ST elevated myocardial infarction) I21.4 Acute kidney injury superimposed on CKD N17.9; N18.9 LVH (left ventricular hypertrophy) I51.7 Multiple lacunar infarcts I63.81 Benign positional vertigo H81.10 Blurry vision, right eye H53.8 Chest pain R07.9 Abnormal nuclear stress test R94.39
[2023-06-01] MEDS: atorvastatin 40 mg Tablet PO (20:25)
[2023-06-02 06:00] VITALS: BP 107/60; PULSE 67; RESP 18; O2SAT 96
[2023-06-02] MEDS: tamsulosin 0.4 mg Capsule PO (08:14)
[2023-06-02] MEDS: amlodipine 10 mg Tablet PO (08:14)
[2023-06-02] MEDS: carvedilol 3.125 mg Tablet PO ×2 (08:14→18:01)
[2023-06-02] MEDS: chlorthalidone 25 mg Tablet PO (08:14)
[2023-06-02] MEDS: hyDRALAzine 25 mg Tablet PO ×3 (08:16→20:42)
--- NOTE | 2023-06-02 08:17 | PC.NURSE ---
Med delay This RN is unsure of why maintenance technician 3rd shift did not administer hydralazine at 0500, but did give it at 0816.
[2023-06-02] MEDS: nicotine 21 mg Patch 1 PATCH TRANSDERMA (08:24)
[2023-06-02 08:45] LABS: Alanine Aminotransferase 10 U/L (0-41); Albumin Level 4.2 g/dL (3.5-5.2); Alkaline Phosphatase 68 U/L (40-130); Anion Gap 15.3 (5-19); Aspartate Amino Transferase 10 U/L (0-40); Blood Urea Nitrogen 39 mg/dL (6-20); Calcium 9.3 mg/dL (8.5-10.5); Carbon Dioxide 26 mmol/L (22-29); Chloride 106 mmol/L (98-107); Globulin 3.1 g/dL (1.3-4.6); Glomerular Filtration Rate 38.8 mL/min (90-130); Glucose 94 mg/dL (65-115); Osmolality Calculated 305 mOsm/kg (285-295); Potassium 4.3 mmol/L (3.5-5.1); Sodium 143 mmol/L (136-145); Total Bilirubin 0.3 mg/dL (0.15-1.2); Total Protein 7.3 g/dL (6.6-8.7)
[2023-06-02 14:00] VITALS: BP 128/68; PULSE 64; RESP 20; TEMP 36.6; O2SAT 98
--- NOTE | 2023-06-02 16:46 | PM.PN ---
Subjective Subjective: Patient was seen this morning, he did have 2 episodes of chest pain overnight, but they were very short-lived, currently chest pain-free Vitals/I&O/Wt Last Vital Signs Temp 97.8 F 06/02/23 14:00 Pulse 64 06/02/23 14:00 Resp 20 H 06/02/23 14:00 BP 128/68 06/02/23 14:00 Pulse Ox 98 06/02/23 14:00 O2 Del Method Room Air 06/02/23 06:00 Weight last 48 hrs Weight 58.967 kg Physical Exam Const: COMMON NORMALS: no acute distress and patient oriented x3 Resp: COMMON NORMALS: normal respiratory effort, No retractions, No use of accessory muscles and clear to auscultation bilaterally AUSCULTATION: clear to auscultation bilaterally Cardio: COMMON NORMALS: regular rate, regular rhythm, S1 normal heart sound present and S2 normal heart sound present RATE: regular rate RHYTHM: regular rhythm HEART SOUNDS: S1 normal heart sound present and S2 normal heart sound present GI: COMMON NORMALS: Normal to inspection, nondistended, normoactive bowel sounds present and non-tender Extremity: COMMON NORMALS: no pedal edema Neuro: COMMON NORMALS: patient oriented x3 Psych: COMMON NORMALS: mental status grossly normal Data 06/01/23 04:10 06/02/23 08:13 A&P Assessment and plan (1) Hypertensive urgency: (2) Acute psychosis: (3) NSTEMI (non-ST elevated myocardial infarction): (4) Acute kidney injury superimposed on CKD: (5) LVH (left ventricular hypertrophy): (6) Multiple lacunar infarcts: (7) Benign positional vertigo: (8) Blurry vision, right eye: (9) Chest pain: (10) Abnormal nuclear stress test: Plan Hypertensive urgency - CT of the head, multiple lacunar infarcts, repeat head CT no acute findings, carotid artery Doppler ultrasound no significant stenosis, needs blood pressure monitoring, start Plavix, and atorvastatin -For his blurry vision we will need to follow-up with ophthalmology -Likely benign positional vertigo, monitor -NSTEMI, likely cardiac stress, likely type II from hypertension however cannot rule out underlying cardiac etiology needs to follow-up with cardiology on discharge, monitor -Cardiac echo shows LVH, needs to follow-up with cardiology -On Norvasc, on chlorthalidone, on clonidine, hydralazine, added Coreg -Slowly titrate blood pressure -AYDEN, on chronic kidney disease need to follow-up with nephrology monitor kidney function -Now with left-sided chest pain, baseline troponin 25, EKG showing ST depressions in the lateral leads, complaints of recurrent chest pain -Continue Plavix, statin, nitro as needed Cardiac stress test -1.? Myocardial perfusion imaging revealing moderate area of minimal to ?moderately decreased tracer uptake involving the inferior, inferolateral, ?anterolateral and apical lateral regions with Significant with reversibility ?suggesting ischemia in the distribution of the left circumflex artery and right ?coronary artery. ?2.? Slightly diminished left ventricular ejection fraction of 49%. ?3.? LV wall motion analysis revealing moderate diffuse hypokinesia of the ?septum. ?4.? Mildly dilated LV cavity with an end-systolic volume of 76 ml. ?No similar previous studies are available for comparison -Cardiology consulted -Coronary angiography LAD shows 50% lesion, risk factor modification -Still having intermittent chest pain, admitted to go down on the chlorthalidone dose to 12.5 mg daily, and add Imdur 15 mg once daily -Full code -Lovenox for DVT prophylaxis Acute psychosis as per psychiatry, 96-hour hold, one-to-one observation Plan for today, -Still having intermittent chest pain, admitted to go down on the chlorthalidone dose to 12.5 mg daily, and add Imdur 15 mg once daily, monitor creatinine 1.7 Attestations Medical Necessity Statement*: Plan for today monitor for recurrent chest pain Diagnoses Hypertensive urgency I16.0 Acute psychosis F23 NSTEMI (non-ST elevated myocardial infarction) I21.4 Acute kidney injury superimposed on CKD N17.9; N18.9 LVH (left ventricular hypertrophy) I51.7 Multiple lacunar infarcts I63.81 Benign positional vertigo H81.10 Blurry vision, right eye H53.8 Chest pain R07.9 Abnormal nuclear stress test R94.39
[2023-06-02 18:00] VITALS: BP 128/68; PULSE 64; RESP 20; TEMP 36.6; O2SAT 98
[2023-06-02] MEDS: clopidogrel 75 mg Tablet PO (18:01)
[2023-06-02 18:26] VITALS: BP 128/68; PULSE 64
[2023-06-02] MEDS: cloNIDine 0.2 mg/24 hr Patch 1 PATCH TRANSDERMA (18:26)
--- NOTE | 2023-06-02 18:38 | W.PM.NPUPNS ---
Subjective NPU Subjective: Patient presented today reporting that he is doing okay. He has not spoken with the places involved in the assisted living yet. We agreed he will call them and determine if they have options that are consistent for him. Otherwise he reports he is feeling better back on the unit and denied any other issues. Mental Status Exam MSE Comments: This is an underweight white male, in hospital scrubs, with limited grooming and eye contact. No abnormal movements except for mild psychomotor retardation. Cooperative with exam in mild distress. Speech was slightly decreased rate and volume. Mood described okay; affect congruent, and less odd. Thought process, mostly organized. Thought content: patient denied any current suicidal or homicidal ideation, there were no delusions reported or noted, patient denied auditory or visual hallucinations. Attention and concentration appeared intact, and memory appeared limited, but none were formally tested.? He was alert and oriented times person and place. Insight, judgment and impulse control appear limited. Vitals/I&O/Wt Last Vital Signs Temp 98.2 F 06/02/23 20:44 Pulse 78 06/02/23 20:44 Resp 18 06/02/23 20:44 BP 163/88 06/02/23 20:44 Pulse Ox 98 06/02/23 20:44 O2 Del Method Room Air 06/02/23 20:44 Data NPU 06/01/23 04:10 06/03/23 09:55 A&P Assessment and plan (1) Benign positional vertigo: (2) Acute kidney injury superimposed on CKD: (3) Hypertensive urgency: (4) Homicidal thoughts: (5) Acute psychosis: (6) Altered mental status: Plan This is a 58-year-old male, who denies any history of mental health or addiction issues who presents on a 96-hour hold with reports of odd behavior but patient denies any aggressive or agitated behavior. 1. Continue current medication. We will try to get some collateral information. 2. Return to the neuropsychiatric unit for continued treatment. 3. Resume every 15 minute checks for safety. 4. Encourage individual, group and milieu therapy. 5. Work with social work team for appropriate discharge planning. Patient has a certain which could be consistent with cluster a personality disorder or negative symptoms of schizophrenia but have no real collateral history and has been a bit of a hermit and is unclear he can return to the place he was previously living. Involuntary Hold Information 96 Hour Hold: 96 Hour Involuntary Admission: Yes 96 Hour Hold Ending Date: 05/31/23 96 Hour Hold Ending Time: 17:28 Attestations NPU Medical Necessity Statement*: Inpatient hospitalization is medically necessary and the clinically appropriate intervention, at this time. We will monitor medications and make changes as indicated. Likely length of stay is 1-3 days. Coding Level of Care Code Acute Code for Chg Fwd Diagnoses Benign positional vertigo H81.10 Acute kidney injury superimposed on CKD N17.9; N18.9 Hypertensive urgency I16.0 Homicidal thoughts R45.850 Acute psychosis F23 Altered mental status R41.82
[2023-06-02] MEDS: atorvastatin 40 mg Tablet PO (20:42)
[2023-06-02 20:44] VITALS: BP 138/84; PULSE 75; RESP 20; TEMP 36.7; O2SAT 97
[2023-06-03 06:00] VITALS: BP 163/88; PULSE 78; RESP 18; TEMP 36.8; O2SAT 98
[2023-06-03] MEDS: hyDRALAzine 25 mg Tablet PO ×3 (06:10→20:06)
[2023-06-03] MEDS: isosorbide mononitrate ER 30 mg Tablet 15 MG PO (08:58)
[2023-06-03] MEDS: amlodipine 10 mg Tablet PO (08:59)
[2023-06-03] MEDS: tamsulosin 0.4 mg Capsule PO (08:59)
[2023-06-03] MEDS: carvedilol 3.125 mg Tablet PO ×2 (08:59→17:39)
[2023-06-03] MEDS: chlorthalidone 25 mg Tablet 12.5 MG PO (08:59)
[2023-06-03 09:01] VITALS: BP 148/80; PULSE 80; RESP 20; TEMP 36.6; O2SAT 99
[2023-06-03 10:36] LABS: Alanine Aminotransferase 11 U/L (0-41); Albumin Level 4.2 g/dL (3.5-5.2); Alkaline Phosphatase 70 U/L (40-130); Anion Gap 13.9 (5-19); Aspartate Amino Transferase 10 U/L (0-40); Blood Urea Nitrogen 47 mg/dL (6-20); Calcium 9.7 mg/dL (8.5-10.5); Carbon Dioxide 28 mmol/L (22-29); Chloride 102 mmol/L (98-107); Globulin 3.1 g/dL (1.3-4.6); Glomerular Filtration Rate 41.5 mL/min (90-130); Glucose 105 mg/dL (65-115); Osmolality Calculated 303 mOsm/kg (285-295); Potassium 3.9 mmol/L (3.5-5.1); Sodium 140 mmol/L (136-145); Total Bilirubin 0.4 mg/dL (0.15-1.2); Total Protein 7.3 g/dL (6.6-8.7)
[2023-06-03 14:00] VITALS: BP 115/66; PULSE 63; RESP 20; TEMP 36.7; O2SAT 98
--- NOTE | 2023-06-03 15:22 | PM.PN ---
Subjective Subjective: Patient was seen this morning, he is ambulating around the neuropsychiatric unit, he does report intermittent chest pain, but very mild, he tolerated the Imdur well yesterday low-dose no lightheadedness no dizziness no headache Vitals/I&O/Wt Last Vital Signs Temp 97.9 F 06/03/23 09:01 Pulse 80 06/03/23 09:01 Resp 20 H 06/03/23 09:01 BP 148/80 06/03/23 09:01 Pulse Ox 99 06/03/23 09:01 O2 Del Method Room Air 06/03/23 06:00 Physical Exam Const: COMMON NORMALS: no acute distress and patient oriented x3 Resp: COMMON NORMALS: normal respiratory effort, No retractions, No use of accessory muscles and clear to auscultation bilaterally AUSCULTATION: clear to auscultation bilaterally Cardio: COMMON NORMALS: regular rate, regular rhythm, S1 normal heart sound present and S2 normal heart sound present RATE: regular rate RHYTHM: regular rhythm HEART SOUNDS: S1 normal heart sound present and S2 normal heart sound present GI: COMMON NORMALS: Normal to inspection, nondistended, normoactive bowel sounds present and non-tender Extremity: COMMON NORMALS: no pedal edema Neuro: COMMON NORMALS: patient oriented x3 Psych: COMMON NORMALS: mental status grossly normal Data 06/01/23 04:10 06/03/23 09:55 A&P Assessment and plan (1) Hypertensive urgency: (2) Acute psychosis: (3) NSTEMI (non-ST elevated myocardial infarction): (4) Acute kidney injury superimposed on CKD: (5) LVH (left ventricular hypertrophy): (6) Multiple lacunar infarcts: (7) Benign positional vertigo: (8) Blurry vision, right eye: (9) Chest pain: (10) Abnormal nuclear stress test: Plan Hypertensive urgency - CT of the head, multiple lacunar infarcts, repeat head CT no acute findings, carotid artery Doppler ultrasound no significant stenosis, needs blood pressure monitoring, start Plavix, and atorvastatin -For his blurry vision we will need to follow-up with ophthalmology -Likely benign positional vertigo, monitor -NSTEMI, likely cardiac stress, likely type II from hypertension however cannot rule out underlying cardiac etiology needs to follow-up with cardiology on discharge, monitor -Cardiac echo shows LVH, needs to follow-up with cardiology -On Norvasc, on chlorthalidone, on clonidine, hydralazine, added Coreg -Slowly titrate blood pressure -AYDEN, on chronic kidney disease need to follow-up with nephrology monitor kidney function -Now with left-sided chest pain, baseline troponin 25, EKG showing ST depressions in the lateral leads, complaints of recurrent chest pain -Continue Plavix, statin, nitro as needed Cardiac stress test -1.? Myocardial perfusion imaging revealing moderate area of minimal to ?moderately decreased tracer uptake involving the inferior, inferolateral, ?anterolateral and apical lateral regions with Significant with reversibility ?suggesting ischemia in the distribution of the left circumflex artery and right ?coronary artery. ?2.? Slightly diminished left ventricular ejection fraction of 49%. ?3.? LV wall motion analysis revealing moderate diffuse hypokinesia of the ?septum. ?4.? Mildly dilated LV cavity with an end-systolic volume of 76 ml. ?No similar previous studies are available for comparison -Cardiology consulted -Coronary angiography LAD shows 50% lesion, risk factor modification -Still having intermittent chest pain, admitted to go down on the chlorthalidone dose to 12.5 mg daily, increase Imdur to 30 mg daily -Full code -Lovenox for DVT prophylaxis Acute psychosis as per psychiatry, 96-hour hold, one-to-one observation Plan for today, -Still having intermittent chest pain, increase Imdur to 30 mg daily creatinine 1.7 We will peripherally follow, please notify us on discharge, so we can set up outpatient appointments Attestations Medical Necessity Statement*: Patient requires hospitalization for chest pain Diagnoses Hypertensive urgency I16.0 Acute psychosis F23 NSTEMI (non-ST elevated myocardial infarction) I21.4 Acute kidney injury superimposed on CKD N17.9; N18.9 LVH (left ventricular hypertrophy) I51.7 Multiple lacunar infarcts I63.81 Benign positional vertigo H81.10 Blurry vision, right eye H53.8 Chest pain R07.9 Abnormal nuclear stress test R94.39
[2023-06-03] MEDS: clopidogrel 75 mg Tablet PO (17:40)
--- NOTE | 2023-06-03 19:43 | P.NPUPN_ITS ---
Subjective NPU Subjective: Patient presented today reporting that he was doing okay. He had not made a call to the assisted living center reportedly because he did not know how long he was going to be here even though he had a very clear conversation about her making call. We discussed some concern existing in his execution of ideas that we discussed. We discussed having PT OT coming and assess his independent fun ctioning. With a Mariano. Mental Status Exam MSE Comments: This is an underweight white male, in hospital scrubs, with limited grooming and eye contact. No abnormal movements except for mild psychomotor retardation. Cooperative with exam in mild distress. Speech was slightly decreased rate and volume. Mood described okay; affect congruent, and less odd but still somewhat confused. Thought process, mostly organized, but concern for somewhat occult disorganization. Thought content: patient denied any current suicidal or homicidal ideation, there were no delusions reported or noted, patient denied au ditory or visual hallucinations. Attention and concentration appeared intact, and memory appeared limited, but none were formally tested.? He was alert and oriented times person and place. Insight, judgment and impulse control appear limited. Vitals/I&O/Wt Last Vital Signs Temp 98.1 F 06/03/23 20:32 Pulse 71 06/03/23 20:32 Resp 17 06/03/23 20:32 BP 119/56 06/03/23 20:32 Pulse Ox 97 06/03/23 20:32 O2 Del Method Room Air 06/03/23 20:32 Data NPU 06/01/23 04:10 06/03/23 09:55 A&P Assessment and plan (1) Benign positional vertigo: (2) Acute kidney injury superimposed on CKD: (3) Hypertensive urgency: (4) Homicidal thoughts: (5) Acute psychosis: (6) Altered mental status: Plan This is a 58-year-old male, who denies any history of mental health or addiction issues who presents on a 96-hour hold with reports of odd behavior but patient denies any aggressive or agitated behavior. 1. Continue current medication. We will try to get some collateral information. 2. Perform Mariano to explore independent functioning. Given his cognitive fog. 3. Resume every 15 minute checks for safety. 4. Encourage individual, group and milieu therapy. 5. Work with social work team for appropriate discharge planning. Patient has a certain which could be consistent with cluster a personality disorder or negative symptoms of schizophrenia but have no real collateral history and has been a bit of a hermit and is unclear he can return to the place he was previously living. Involuntary Hold Information 96 Hour Hold: 96 Hour Involuntary Admission: Yes 96 Hour Hold Ending Date: 05/31/23 96 Hour Hold Ending Time: 17:28 Attestations NPU Medical Necessity Statement*: Inpatient hospitalization is medically necessary and the clinically appropriate intervention, at this time. We will monitor medications and make changes as indicated. Likely length of stay is 3-4 days. Coding Level of Care Code Acute Code for Chg Fwd Diagnoses Benign positional vertigo H81.10 Acute kidney injury superimposed on CKD N17.9; N18.9 Hypertensive urgency I16.0 Homicidal thoughts R45.850 Acute psychosis F23 Altered mental status R41.82
[2023-06-03] MEDS: atorvastatin 40 mg Tablet PO (20:06)
[2023-06-03 20:32] VITALS: BP 119/56; PULSE 71; RESP 17; TEMP 36.7; O2SAT 97
[2023-06-04] MEDS: hyDRALAzine 25 mg Tablet PO ×3 (05:11→20:23)
[2023-06-04 06:00] VITALS: BP 120/72; PULSE 71; RESP 15; O2SAT 97
--- NOTE | 2023-06-04 07:55 | P.NPUPN_ITS ---
Subjective NPU Subjective: Patient presented today reporting that things are going okay. He is still having moments of shortness of breath. He reports a desire to make sure that his health is stable prior to leaving. We discussed him doing the Mariano as soon as a person from PT/OT can administer it. He denied any cardiac pain or concerns and we discussed making sure that he notified nurses if he was having any physical complaints. Mental Status Exam MSE Comments: This is an underweight white male, in hospital scrubs, with limited grooming and eye contact. No abnormal movements except for mild psychomotor retardation. Cooperative with exam in mild distress. Speech was slightly decreased rate and volume. Mood described okay; affect congruent, and less odd but still somewhat confused. Thought process, mostly organized, but concern for somewhat occult disorganization. Thought content: patient denied any current suicidal or homicidal ideation, there were no delusions reported or noted, patient denied auditory or visual hallucinations. Attention and concentration appeared intact, and memory appeared limited, but none were formally tested.? He was alert and oriented times person and place. Insight, judgment and impulse control appear limited. Vitals/I&O/Wt Last Vital Signs Temp 98.1 F 06/03/23 20:32 Pulse 71 06/04/23 06:00 Resp 15 06/04/23 06:00 BP 120/72 06/04/23 06:00 Pulse Ox 97 06/04/23 06:00 O2 Del Method Room Air 06/04/23 06:00 Data NPU 06/01/23 04:10 06/03/23 09:55 A&P Assessment and plan (1) Benign positional vertigo: (2) Acute kidney injury superimposed on CKD: (3) Hypertensive urgency: (4) Homicidal thoughts: (5) Acute psychosis: (6) Altered mental status: Plan This is a 58-year-old male, who denies any history of mental health or addiction issues who presents on a 96-hour hold with reports of odd behavior but patient denies any aggressive or agitated behavior. 1. Continue current medication. We will try to get some collateral information. 2. Perform Mariano to explore independent functioning. Given his cognitive fog. 3. Resume every 15 minute checks for safety. 4. Encourage individual, group and milieu therapy. 5. Work with social work team for appropriate discharge marko cazares Patient has a certain which could be consistent with cluster a personality disorder or negative symptoms of schizophrenia but have no real collateral history and has been a bit of a hermit and is unclear he can return to the place he was previously living. Involuntary Hold Information 96 Hour Hold: 96 Hour Involuntary Admission: Yes 96 Hour Hold Ending Date: 05/31/23 96 Hour Hold Ending Time: 17:28 Attestations NPU Medical Necessity Statement*: Inpatient hospitalization is medically necessary and the clinically appropriate intervention, at this time. We will monitor medications and make changes as indicated. Likely length of stay is 2-3 days. Coding Level of Care Code Acute Code for Chg Fwd Diagnoses Benign positional vertigo H81.10 Acute kidney injury superimposed on CKD N17.9; N18.9 Hypertensive urgency I16.0 Homicidal thoughts R45.850 Acute psychosis F23 Altered mental status R41.82
[2023-06-04] MEDS: tamsulosin 0.4 mg Capsule PO (08:37)
[2023-06-04] MEDS: isosorbide mononitrate ER 30 mg Tablet PO (08:37)
[2023-06-04] MEDS: carvedilol 3.125 mg Tablet PO ×2 (08:38→17:06)
[2023-06-04] MEDS: chlorthalidone 25 mg Tablet 12.5 MG PO (08:38)
[2023-06-04] MEDS: amlodipine 10 mg Tablet PO (08:38)
[2023-06-04 14:00] VITALS: BP 96/65; PULSE 106; RESP 16; TEMP 36.6; O2SAT 99
[2023-06-04] MEDS: clopidogrel 75 mg Tablet PO (17:06)
--- NOTE | 2023-06-04 17:39 | PC.NURSE ---
When doing rounds this nurse observed patient appearing pale, rubbing his face. Patient stated that he felt dizzy as well as nauseous. VS were: 115/62, 96% RA, HR 80. This nurse ordered zofran 4mg and will administer as soon as it becomes available.
[2023-06-04] MEDS: ondansetron 4 MG Tablet PO (17:53)
[2023-06-04] MEDS: trazodone 50 mg Tablet PO (20:23)
[2023-06-04] MEDS: atorvastatin 40 mg Tablet PO (20:23)
[2023-06-04 20:30] VITALS: BP 125/52; PULSE 71; RESP 18; TEMP 36.6; O2SAT 97
[2023-06-05] MEDS: hyDRALAzine 25 mg Tablet PO (05:39)
[2023-06-05 06:00] VITALS: BP 115/63; PULSE 55; RESP 18; TEMP 36.5; O2SAT 98
[2023-06-05] MEDS: chlorthalidone 25 mg Tablet 12.5 MG PO (07:41)
[2023-06-05] MEDS: tamsulosin 0.4 mg Capsule PO (07:42)
[2023-06-05] MEDS: isosorbide mononitrate ER 30 mg Tablet PO (07:42)
--- NOTE | 2023-06-05 07:53 | PC.NURSE ---
PT BLOOD PRESSURE WAS 92/64 MANUALLY PERFORMED BY THIS NURSE PRIOR TO MEDICATION ADMINISTRATION. FOR THIS REASON BLOOD PRESSURE MEDICATIONS WERE HELD.
[2023-06-05 07:55] VITALS: BP 92/62; PULSE 75
[2023-06-05 14:00] VITALS: BP 116/46; PULSE 59; RESP 18; TEMP 37; O2SAT 98
--- NOTE | 2023-06-05 15:39 | W.PM.NPUPNS ---
Subjective NPU Subjective: Presents today reporting that he is doing okay. 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 Namely him getting the Mariano and making calls to facilities. He reported understanding the plan. We explained the purpose of the evaluation. Mental Status Exam MSE Comments: This is an underweight white male, in hospital scrubs, with limited grooming and eye contact. No abnormal movements except for mild psychomotor retardation. Cooperative with exam in mild distress. Speech was slightly decreased rate and volume. Mood described okay; affect congruent, and less odd but still somewhat confused. Thought process, mostly organized, but concern for somewhat occult disorganization. Thought content: patient denied any current suicidal or homicidal ideation, there were no delusions reported or noted, patient denied auditory or visual hallucinations. Attention and concentration appeared intact, and memory appeared limited, but none were formally tested.? He was alert and oriented times person and place. Insight, judgment and impulse control appear limited. Vitals/I&O/Wt Last Vital Signs Temp 98.6 F 06/05/23 14:00 Pulse 59 L 06/05/23 14:00 Resp 18 06/05/23 14:00 BP 116/46 06/05/23 14:00 Pulse Ox 98 06/05/23 14:00 O2 Del Method Room Air 06/05/23 14:00 Data NPU 06/01/23 04:10 06/03/23 09:55 A&P Assessment and plan (1) Benign positional vertigo: (2) Acute kidney injury superimposed on CKD: (3) Hypertensive urgency: (4) Homicidal thoughts: (5) Acute psychosis: (6) Altered mental status: Plan This is a 58-year-old male, who denies any history of mental health or addiction issues who presents on a 96-hour hold with reports of odd behavior but patient denies any aggressive or agitated behavior. 1. Continue current medication. We will try to get some collateral information. 2. Perform Mariano to explore independent functioning. Given his cognitive fog. 3. Resume every 15 minute checks for safety. 4. Encourage individual, group and milieu therapy. 5. Work with social work team for appropriate discharge planning. Patient has a certain which could be consistent with cluster a personality disorder or negative symptoms of schizophrenia but have no real collateral history and has been a bit of a hermit and is unclear he can return to the place he was previously living. Involuntary Hold Information 96 Hour Hold: 96 Hour Involuntary Admission: Yes 96 Hour Hold Ending Date: 05/31/23 96 Hour Hold Ending Time: 17:28 Attestations NPU Medical Necessity Statement*: Inpatient hospitalization is medically necessary and the clinically appropriate intervention, at this time. We will monitor medications and make changes as indicated. Likely length of stay is 3-4 days. Coding Level of Care Code Acute Code for Chg Fwd Diagnoses Benign positional vertigo H81.10 Acute kidney injury superimposed on CKD N17.9; N18.9 Hypertensive urgency I16.0 Homicidal thoughts R45.850 Acute psychosis F23 Altered mental status R41.82
--- NOTE | 2023-06-05 16:15 | PM.PN ---
Subjective Subjective: Patient was seen this morning he is ambulating around the neuropsychiatric unit, has been complaining of lightheadedness dizziness, his blood pressure this morning was 90/40, denies ever passing out, spoke to nursing staff, will repeat blood pressure, systolic has improved to the 110s, diastolic to the 60s, will discontinue clonidine patch, discontinue hydralazine hold morning metoprolol dose, monitor blood pressures he denies any chest pain, Vitals/I&O/Wt Last Vital Signs Temp 98.6 F 06/05/23 14:00 Pulse 59 L 06/05/23 14:00 Resp 18 06/05/23 14:00 BP 116/46 06/05/23 14:00 Pulse Ox 98 06/05/23 14:00 O2 Del Method Room Air 06/04/23 20:30 Weight last 48 hrs Weight 62.596 kg Physical Exam Const: COMMON NORMALS: no acute distress and patient oriented x3 Resp: COMMON NORMALS: normal respiratory effort, No retractions, No use of accessory muscles and clear to auscultation bilaterally AUSCULTATION: clear to auscultation bilaterally Cardio: COMMON NORMALS: regular rate, regular rhythm, S1 normal heart sound present and S2 normal heart sound present RATE: regular rate RHYTHM: regular rhythm HEART SOUNDS: S1 normal heart sound present and S2 normal heart sound present GI: COMMON NORMALS: Normal to inspection, nondistended, normoactive bowel sounds present and non-tender Extremity: COMMON NORMALS: no pedal edema Neuro: COMMON NORMALS: patient oriented x3 Psych: COMMON NORMALS: mental status grossly normal Data 06/01/23 04:10 06/03/23 09:55 A&P Assessment and plan (1) Hypertensive urgency: (2) Acute psychosis: (3) NSTEMI (non-ST elevated myocardial infarction): (4) Acute kidney injury superimposed on CKD: (5) LVH (left ventricular hypertrophy): (6) Multiple lacunar infarcts: (7) Benign positional vertigo: (8) Blurry vision, right eye: (9) Chest pain: (10) Abnormal nuclear stress test: Plan Hypertensive urgency - CT of the head, multiple lacunar infarcts, repeat head CT no acute findings, carotid artery Doppler ultrasound no significant stenosis, needs blood pressure monitoring, start Plavix, and atorvastatin -For his blurry vision we will need to follow-up with ophthalmology -Likely benign positional vertigo, monitor -NSTEMI, likely cardiac stress, likely type II from hypertension however cannot rule out underlying cardiac etiology needs to follow-up with cardiology on discharge, monitor -Cardiac echo shows LVH, needs to follow-up with cardiology -Continue Coreg 3.25 twice daily -Decrease Norvasc to 5 mg once daily - Imdur to 30 mg once daily -Continue chlorthalidone 12.5 mg once daily -Watch blood pressures closely -Now with left-sided chest pain, baseline troponin 25, EKG showing ST depressions in the lateral leads, complaints of recurrent chest pain -Continue Plavix, statin, nitro as needed Cardiac stress test -1.? Myocardial perfusion imaging revealing moderate area of minimal to ?moderately decreased tracer uptake involving the inferior, inferolateral, ?anterolateral and apical lateral regions with Significant with reversibility ?suggesting ischemia in the distribution of the left circumflex artery and right ?coronary artery. ?2.? Slightly diminished left ventricular ejection fraction of 49%. ?3.? LV wall motion analysis revealing moderate diffuse hypokinesia of the ?septum. ?4.? Mildly dilated LV cavity with an end-systolic volume of 76 ml. ?No similar previous studies are available for comparison -Cardiology consulted -Coronary angiography LAD shows 50% lesion, risk factor modification -Still having intermittent chest pain, admitted to go down on the chlorthalidone dose to 12.5 mg daily, increase Imdur to 30 mg daily -Full code -Lovenox for DVT prophylaxis Acute psychosis as per psychiatry, 96-hour hold, one-to-one observation Attestations Medical Necessity Statement*: Patient requires hospitalization for lightheadedness dizziness, soft blood pressures, requiring blood pressure management Diagnoses Hypertensive urgency I16.0 Acute psychosis F23 NSTEMI (non-ST elevated myocardial infarction) I21.4 Acute kidney injury superimposed on CKD N17.9; N18.9 LVH (left ventricular hypertrophy) I51.7 Multiple lacunar infarcts I63.81 Benign positional vertigo H81.10 Blurry vision, right eye H53.8 Chest pain R07.9 Abnormal nuclear stress test R94.39
[2023-06-05] MEDS: clopidogrel 75 mg Tablet PO (17:19)
[2023-06-05] MEDS: carvedilol 3.125 mg Tablet PO (17:19)
[2023-06-05 19:40] VITALS: BP 151/54; PULSE 71; RESP 18; TEMP 37.2; O2SAT 96
[2023-06-05] MEDS: trazodone 50 mg Tablet PO (20:36)
[2023-06-05] MEDS: atorvastatin 40 mg Tablet PO (20:37)
--- NOTE | 2023-06-05 20:37 | PC.NURSE ---
PT REQUESTED TRAZODONE 50 MG TO ASSIST WITH SLEEP. PT WAS GIVEN TRAZODONE ORDERED.
--- NOTE | 2023-06-05 21:43 | PC.NURSE ---
RESTING IN BED IN NO DISTRESS. DENIES PAIN. PT DENIES SI/HI AND AVH AT THIS TIME. PTS MEDICATIONS FOR BP WERE ADJUSTED TODAY AND PT STATES HE IS FEELING BETTER. MANUAL BP WAS 154/89. PT FEELS HE IS READY TO DISCHARGE BUT IS WAITING TO TALK TO THE CASEWORKERS TOMORROW. PT WAS EDUCATED ON GETTING UP SLOWLY SO DOES NOT GET DIZZY. PT SAID HE HAS BEEN AND IT HAS HELPED TO REDUCE HIS DIZZY SPELLS. ALL QUESTIONS ANSWERED AND SUPPORT WAS VOICED.
[2023-06-05 23:07] VITALS: BP 155/89
[2023-06-06 06:00] VITALS: BP 154/78; PULSE 67; RESP 18; TEMP 36.7; O2SAT 97
[2023-06-06 07:49] VITALS: BP 173/87; PULSE 70
--- NOTE | 2023-06-06 08:05 | PC.NURSE ---
PT CURRENTLY DENIES SI/HI/AH/VH. PT WAS WILLING AND COOPERATIVE DURING ASSESSMENT. PT APPEARS TO BE IN A PLEASANT MOOD THIS MORNING. PT BLOOD PRESSURE ELEVATED THIS MORNING AT 173/87. THIS NURSE CONTACTED PT PHYSICIAN. PT TO RECEIVE MORNING MEDICATIONS AND RECHECK HOUR AFTER MEDICATIONS HAVE BEEN ADMINISTERED.
[2023-06-06] MEDS: isosorbide mononitrate ER 30 mg Tablet PO (08:08)
[2023-06-06] MEDS: tamsulosin 0.4 mg Capsule PO (08:08)
[2023-06-06] MEDS: amlodipine 5 mg Tablet PO (08:09)
[2023-06-06] MEDS: chlorthalidone 25 mg Tablet 12.5 MG PO (08:11)
[2023-06-06] MEDS: carvedilol 3.125 mg Tablet PO ×2 (08:11→17:36)
--- NOTE | 2023-06-06 09:30 | P.NPUPN_ITS ---
Subjective NPU Subjective: Patient presented today reporting that he understands the plan for tomorrow. He is supposed to call the assisted living facilities and we discussed the fact that we will work with him to figure out when he is discharged she does not have to know when he is discharged before he calls them. We discussed having concerns regarding him having a safe medically stable place to discharge and we identified his previous situation and being less than desirable especially with these recent medical comorbidities. He agreed to work with the social work team tomorrow to accomplish the goal of close calls and hopefully placement. Mental Status Exam MSE Comments: This is an underweight white male, in hospital scrubs, with limited grooming and eye contact. No abnormal movements except for mild psychomotor retardation. Cooperative with exam in mild distress. Speech was slightly decreased rate and v olume. Mood described okay; affect congruent, and less odd but still somewhat confused. Thought process, mostly organized, but concern for somewhat occult disorganization. Thought content: patient denied any current suicidal or homicidal ideation, there were no delusions reported or noted, patient denied auditory or visual hallucinations. Attention and concentration appeared intact, and memory appeared limited, but none were formally tested.? He was alert and oriented times person and place. Insight, judgment and impulse control appear limited. Vitals/I&O/Wt Last Vital Signs Temp 97.7 F 06/05/23 06:00 Pulse 55 L 06/05/23 06:00 Resp 18 06/05/23 06:00 BP 115/63 06/05/23 06:00 Pulse Ox 98 06/05/23 06:00 O2 Del Method Room Air 06/05/23 06:00 Weight last 48 hrs Weight 62.596 kg Data NPU 06/01/23 04:10 06/03/23 09:55 A&P Assessment and plan (1) Benign positional vertigo: (2) Acute kidney injury superimposed on CKD: (3) Hypertensive urgency: (4) Homicidal thoughts: (5) Acute psychosis: (6) Altered mental status: Plan This is a 58-year-old male, who denies any history of mental health or addiction issues who presents on a 96-hour hold with reports of odd behavior but patient denies any aggressive or agitated behavior. 1. Continue current medication. We will try to get some collateral informati on. 2. Perform Mariano to explore independent functioning. Given his cognitive fog. 3. Resume every 15 minute checks for safety. 4. Encourage individual, group and milieu therapy. 5. Work with social work team for appropriate discharge planning. Patient has a certain which could be consistent with cluster a pe rsonality disorder or negative symptoms of schizophrenia but have no real collateral history and has been a bit of a hermit and is unclear he can return to the place he was previously living. Involuntary Hold Information 96 Hour Hold: 96 Hour Involuntary Admission: Yes 96 Hour Hold Ending Date: 05/31/23 96 Hour Hold Ending Time: 17:28 Attestations NPU Medical Necessity Statement*: Inpatient hospitalization is medically necessary and the clinically appropriate intervention, at this time. We will monitor medications and make changes as indicated. Likely length of stay is 1-2 days. Coding Level of Care Code Acute Code for Chg Fwd Diagnoses Benign positional vertigo H81.10 Acute kidney injury superimposed on CKD N17.9; N18.9 Hypertensive urgency I16.0 Homicidal thoughts R45.850 Acute psychosis F23 Altered mental status R41.82
[2023-06-06 14:00] VITALS: BP 118/68; PULSE 70; RESP 18; TEMP 36.6; O2SAT 96
[2023-06-06] MEDS: alum-mag-hydroxide-sime 30 mL UDC PO (14:21)
--- NOTE | 2023-06-06 14:22 | PC.NURSE ---
PRN MAALOX 30 ML GIVEN PO PER PT C/O INDIGESTION
--- NOTE | 2023-06-06 17:05 | PM.PN ---
Subjective Subjective: Patient was seen this morning, he is ambulating in the neuropsychiatric unit, he was hypertensive throughout the night, no headache, no blurry vision, no nausea, no vomiting, more normotensive this morning, denies any lightheadedness, no dizziness, no chest pain Vitals/I&O/Wt Last Vital Signs Temp 97.8 F 06/06/23 14:00 Pulse 70 06/06/23 14:00 Resp 18 06/06/23 14:00 BP 118/68 06/06/23 14:00 Pulse Ox 96 06/06/23 14:00 O2 Del Method Room Air 06/06/23 14:00 Weight last 48 hrs Weight 62.596 kg Physical Exam Const: COMMON NORMALS: no acute distress and patient oriented x3 Resp: COMMON NORMALS: normal respiratory effort, No retractions, No use of accessory muscles and clear to auscultation bilaterally AUSCULTATION: clear to auscultation bilaterally Cardio: COMMON NORMALS: regular rate, regular rhythm, S1 normal heart sound present and S2 normal heart sound present RATE: regular rate RHYTHM: regular rhythm HEART SOUNDS: S1 normal heart sound present and S2 normal heart sound present GI: COMMON NORMALS: Normal to inspection, nondistended, normoactive bowel sounds present and non-tender Extremity: COMMON NORMALS: no pedal edema Neuro: COMMON NORMALS: patient oriented x3 Psych: COMMON NORMALS: mental status grossly normal Data 06/01/23 04:10 06/03/23 09:55 A&P Assessment and plan (1) Hypertensive urgency: (2) Acute psychosis: (3) NSTEMI (non-ST elevated myocardial infarction): (4) Acute kidney injury superimposed on CKD: (5) LVH (left ventricular hypertrophy): (6) Multiple lacunar infarcts: (7) Benign positional vertigo: (8) Blurry vision, right eye: (9) Chest pain: (10) Abnormal nuclear stress test: Plan Hypertensive urgency - CT of the head, multiple lacunar infarcts, repeat head CT no acute findings, carotid artery Doppler ultrasound no significant stenosis, needs blood pressure monitoring, start Plavix, and atorvastatin -For his blurry vision we will need to follow-up with ophthalmology -Likely benign positional vertigo, monitor -NSTEMI, likely cardiac stress, likely type II from hypertension however cannot rule out underlying cardiac etiology needs to follow-up with cardiology on discharge, monitor -Cardiac echo shows LVH, needs to follow-up with cardiology -Continue Coreg 3.25 twice daily -Decrease Norvasc to 5 mg once daily - Imdur to 30 mg once daily -Continue chlorthalidone 12.5 mg once daily -Watch blood pressures closely -Now with left-sided chest pain, baseline troponin 25, EKG showing ST depressions in the lateral leads, complaints of recurrent chest pain -Continue Plavix, statin, nitro as needed Cardiac stress test -1.? Myocardial perfusion imaging revealing moderate area of minimal to ?moderately decreased tracer uptake involving the inferior, inferolateral, ?anterolateral and apical lateral regions with Significant with reversibility ?suggesting ischemia in the distribution of the left circumflex artery and right ?coronary artery. ?2.? Slightly diminished left ventricular ejection fraction of 49%. ?3.? LV wall motion analysis revealing moderate diffuse hypokinesia of the ?septum. ?4.? Mildly dilated LV cavity with an end-systolic volume of 76 ml. ?No similar previous studies are available for comparison -Cardiology consulted -Coronary angiography LAD shows 50% lesion, risk factor modification -no chest pain, Imdur to 30 mg daily -Full code -Lovenox for DVT prophylaxis Acute psychosis as per psychiatry, 96-hour hold, one-to-one observation Attestations Medical Necessity Statement*: Patient requires hospitalization, currently requiring blood pressure management in the neuropsychiatric unit Diagnoses Hypertensive urgency I16.0 Acute psychosis F23 NSTEMI (non-ST elevated myocardial infarction) I21.4 Acute kidney injury superimposed on CKD N17.9; N18.9 LVH (left ventricular hypertrophy) I51.7 Multiple lacunar infarcts I63.81 Benign positional vertigo H81.10 Blurry vision, right eye H53.8 Chest pain R07.9 Abnormal nuclear stress test R94.39
[2023-06-06] MEDS: clopidogrel 75 mg Tablet PO (17:36)
[2023-06-06 19:43] VITALS: BP 168/80; PULSE 71; RESP 18; TEMP 37.1; O2SAT 97
[2023-06-06] MEDS: trazodone 50 mg Tablet PO ×2 (20:52→23:33)
[2023-06-06] MEDS: atorvastatin 40 mg Tablet PO (20:53)
[2023-06-07 06:00] VITALS: BP 153/80; PULSE 83; RESP 16; O2SAT 95
[2023-06-07] MEDS: tamsulosin 0.4 mg Capsule PO (08:01)
[2023-06-07] MEDS: carvedilol 3.125 mg Tablet PO ×2 (08:01→17:26)
[2023-06-07] MEDS: isosorbide mononitrate ER 30 mg Tablet PO (08:01)
[2023-06-07] MEDS: amlodipine 5 mg Tablet PO (08:01)
[2023-06-07] MEDS: chlorthalidone 25 mg Tablet 12.5 MG PO (08:02)
[2023-06-07 13:30] VITALS: BP 117/50; PULSE 69; RESP 15; TEMP 36.8; O2SAT 98
--- NOTE | 2023-06-07 16:06 | P.NPUPN_ITS ---
Subjective NPU Subjective: Patient presented today reporting that he is doing fine. He was able to talk about his previous living situation and the fact that things were cluttered and due to his likely medical challenges he would at times be at risk to fall. He completed the Mariano evaluation and as anticipated the recommendation is for 24- hour assistance. It seems that some challenges exist in application of what to do. His MMSE was unremarkable, missing only a few points. Mental Status Exam MSE Comments: This is an underweight white male, in hospital scrubs, with limited grooming and eye contact. No abnormal movements except for mild psychomotor retardation. Cooperative with exam in mild distress. Speech was slightly decreased rate and volume. Mood described okay; affect congruent, and less odd but still somewhat confused. Thought process, mostly organized, but concern for somewhat occult disorganization. Thought content: patient denied any current suicidal or homicidal ideation, there were no delusions reported or noted, patient denied auditory or visual hallucinations. Attention and concentration appeared intact, and memory appeared limited, but none were formally tested.? He was alert and oriented times person and place. Insight, judgment and impulse control appear limited. Vitals/I&O/Wt Last Vital Signs Temp 97.8 F 06/06/23 14:00 Pulse 70 06/06/23 14:00 Resp 18 06/06/23 14:00 BP 118/68 06/06/23 14:00 Pulse Ox 96 06/06/23 14:00 O2 Del Method Room Air 06/06/23 14:00 Weight last 48 hrs Weight 62.596 kg Data NPU 06/01/23 04:10 06/03/23 09:55 A&P Assessment and plan (1) Hypertensive urgency: (2) Acute psychosis: (3) NSTEMI (non-ST elevated myocardial infarction): (4) Acute kidney injury superimposed on CKD: (5) LVH (left ventricular hypertrophy): (6) Multiple lacunar infarcts: (7) Benign positional vertigo: (8) Blurry vision, right eye: (9) Chest pain: (10) Abnormal nuclear stress test: Plan This is a 58-year-old male, who denies any history of mental health or addiction issues who presents on a 96-hour hold with reports of odd behavior but patient denies any aggressive or agitated behavior. 1. Continue current medication. We will try to get some collateral information. 2. Perform Mariano to explore independent functioning. It was performed and he has significant limitations. 3. Resume every 15 minute checks for safety. 4. Encourage individual, group and milieu therapy. 5. Work with social work team for appropriate discharge planning. Patient has a certain which could be consistent with cluster a personality disorder or negative symptoms of schizophrenia but have no real collateral history and has been a bit of a hermit and is unclear he can return to the place he was previously living. Involuntary Hold Information 96 Hour Hold: 96 Hour Involuntary Admission: Yes 96 Hour Hold Ending Date: 05/31/23 96 Hour Hold Ending Time: 17:28 Attestations NPU Medical Necessity Statement*: Inpatient hospitalization is medically necessary and the clinically appropriate intervention, at this time. We will monitor medications and make changes as ind icated. Likely length of stay is 1-2 days. Discharge planning will be significantly impacted by safe options for discharge. Coding Level of Care Code Acute Code for g Fwd Diagnoses Hypertensive urgency I16.0 Acute psychosis F23 NSTEMI (non-ST elevated myocardial infarction) I21.4 Acute kidney injury superimposed on CKD N17.9; N18.9 LVH (left ventricular hypertrophy) I51.7 Multiple lacunar infarcts I63.81 Benign positional vertigo H81.10 Blurry vision, right eye H53.8 Chest pain R07.9 Abnormal nuclear stress test R94.39
[2023-06-07] MEDS: clopidogrel 75 mg Tablet PO (17:26)
[2023-06-07] MEDS: trazodone 50 mg Tablet PO (20:15)
[2023-06-07] MEDS: atorvastatin 40 mg Tablet PO (20:15)
[2023-06-07 20:39] VITALS: RESP 18
[2023-06-08 06:00] VITALS: BP 131/81; PULSE 59; RESP 18; O2SAT 98
[2023-06-08] MEDS: carvedilol 3.125 mg Tablet PO ×2 (08:54→17:35)
[2023-06-08] MEDS: chlorthalidone 25 mg Tablet 12.5 MG PO (08:54)
[2023-06-08] MEDS: isosorbide mononitrate ER 30 mg Tablet PO (08:54)
[2023-06-08] MEDS: amlodipine 5 mg Tablet PO (08:54)
[2023-06-08] MEDS: tamsulosin 0.4 mg Capsule PO (08:54)
[2023-06-08 14:00] VITALS: BP 150/71; PULSE 73; RESP 18; TEMP 36.6; O2SAT 97
--- NOTE | 2023-06-08 14:41 | P.NPUPN_ITS ---
Subjective NPU Subjective: Patient presented today reporting that he was feeling okay. He reports that he is excepting a plan for placement at assisted living or half-way. He denies any issues with his medications. And is having less somatic complaints. He is working with the social work team for appropriate discharge planning and reports a plan to follow the medical recommendations for his medical comorbidities. Mental Status Exam MSE Comments: This is an underweight white male, in hospital scrubs, with limited grooming and eye contact. No abnormal movements except for mild psychomotor retardation. Cooperative with exam in mild distress. Speech was slightly decreased rate and volume. Mood described okay; affect congruent, and less odd but still somewhat confused. Thought process, mostly organized, but concern for somewhat occult disorganization. Thought content: patient denied any current suicidal or homicidal ideation, there were no delusions reported or noted, patient denied auditory or visual hallucinations. Attention and concentration appeared intact, and memory appeared limited, but none were formally tested.? He was alert and oriented times person and place. Insight, judgment and impulse control appear limited. Vitals/I&O/Wt Last Vital Signs Temp 98.3 F 06/07/23 13:30 Pulse 69 06/07/23 13:30 Resp 15 06/07/23 13:30 BP 117/50 06/07/23 13:30 Pulse Ox 98 06/07/23 13:30 O2 Del Method Room Air 06/07/23 06:00 Data NPU 06/01/23 04:10 06/03/23 09:55 A&P Assessment and plan (1) Hypertensive urgency: (2) Acute psychosis: (3) NSTEMI (non-ST elevated myocardial infarction): (4) Acute kidney injury superimposed on CKD: (5) LVH (left ventricular hypertrophy): (6) Multiple lacunar infarcts: (7) Benign positional vertigo: (8) Blurry vision, right eye: (9) Chest pain: (10) Abnormal nuclear stress test: Plan This is a 58-year-old male, who denies any history of mental health or addiction issues who presents on a 96-hour hold with reports of odd behavior but patient denies any aggressive or agitated behavior. 1. Continue current medication. We will try to get some collateral information. 2. Perform Mariano to explore independent functioning. It was performed and he has significant limitations. 3. Resume every 15 minute checks for safety. 4. Encourage individual, group and milieu therapy. 5. Work with social work team for appropriate discharge planning. Patient has a certain which could be consistent with cluster a personality disorder or negative symptoms of schizophrenia but have no real collateral history and has been a bit of a hermit and is unclear he can return to the place he was previously living. Involuntary Hold Information 96 Hour Hold: 96 Hour Involuntary Admission: Yes 96 Hour Hold Ending Date: 05/31/23 96 Hour Hold Ending Time: 17:28 Attestations NPU Medical Necessity Statement*: Inpatient hospitalization is medically necessary and the clinically appropriate intervention, at this time. We will monitor medications and make changes as indicated. Likely length of stay is 1-2 days. Discharge planning will be significantly impacted by safe options for discharge. Coding Level of Care Code Acute Code for g Fwd Diagnoses Hypertensive urgency I16.0 Acute psychosis F23 NSTEMI (non-ST elevated myocardial infarction) I21.4 Acute kidney injury superimposed on CKD N17.9; N18.9 LVH (left ventricular hypertrophy) I51.7 Multiple lacunar infarcts I63.81 Benign positional vertigo H81.10 Blurry vision, right eye H53.8 Chest pain R07.9 Abnormal nuclear stress test R94.39
[2023-06-08] MEDS: clopidogrel 75 mg Tablet PO (17:35)
[2023-06-08] MEDS: atorvastatin 40 mg Tablet PO (20:33)
[2023-06-08 21:36] VITALS: BP 141/75; PULSE 75; RESP 15; TEMP 36.8; O2SAT 97
[2023-06-09 06:00] VITALS: BP 162/98; PULSE 80; RESP 17; O2SAT 99
[2023-06-09] MEDS: carvedilol 3.125 mg Tablet PO ×2 (09:27→18:05)
[2023-06-09] MEDS: amlodipine 5 mg Tablet PO (09:27)
[2023-06-09] MEDS: isosorbide mononitrate ER 30 mg Tablet PO (09:27)
[2023-06-09] MEDS: tamsulosin 0.4 mg Capsule PO (09:27)
[2023-06-09] MEDS: chlorthalidone 25 mg Tablet 12.5 MG PO (09:27)
[2023-06-09 14:00] VITALS: BP 145/85; PULSE 87; RESP 20; TEMP 36.7; O2SAT 96
--- NOTE | 2023-06-09 14:46 | P.NPUPN_ITS ---
Subjective NPU Subjective: Patient presented today reporting that he is feeling better. He has been working with the social work team providing family contacts so that we can get a better sense of the historical nature of his limitations and circumstances. He chronicled his history of functionality and regular full-time work reportedly ending about a decade ago with a fractured vertebrae leading to him being on dis ability and moving to his sister's house. He reports that she paid the bills primarily and that his family in the area supported him as he never had a vehicle to get around after that. Mental Status Exam MSE Comments: This is an underweight white male, in hospital scrubs, with limited grooming and eye contact. No abnormal movements except for mild psychomotor retardation. Cooperative with exam in mild distress. Speech was slightly decreased rate and volume. Mood described okay; affect congruent, and less odd. Thought process, mostly organized, but concern for somewhat occult disorganization. Thought content: patient denied any current suicidal or homicidal ideation, there were no delusions reported or noted, patient denied auditory or visual hallucinations. Attention and concentration appeared intact, and memory appeared limited, but none were formally tested.? He was alert and oriented times person and place. Insight, judgment and impulse control appear limited. Vitals/I&O/Wt Last Vital Signs Temp 98.2 F 06/08/23 21:36 Pulse 75 06/08/23 21:36 Resp 15 06/08/23 21:36 BP 141/75 06/08/23 21:36 Pulse Ox 97 06/08/23 21:36 O2 Del Method Room Air 06/08/23 21:36 06/08/23 06/08/23 06/09/23 14:59 22:59 06:59 Intake Total 0 / 0 Output Total 600 / 600 Balance -600 / -600 Data NPU 06/01/23 04:10 06/03/23 09:55 A&P Assessment and plan (1) Hypertensive urgency: (2) Acute psychosis: (3) NSTEMI (non-ST elevated myocardial infarction): (4) Acute kidney injury superimposed on CKD: (5) LVH (left ventricular hypertrophy): (6) Multiple lacunar infarcts: (7) Benign positional vertigo: (8) Blurry vision, right eye: (9) Chest pain: (10) Abnormal nuclear stress test: Plan This is a 58-year-old male, who denies any history of mental health or addiction issues who presents on a 96-hour hold with reports of odd behavior but patient denies any aggressive or agitated behavior. 1. Continue current medication. We will try to get some collateral information. 2. Perform Mariano to explore independent functioning. It was performed and he has significant limitations. 3. Resume every 15 minute checks for safety. 4. Encourage individual, group and milieu therapy. 5. Work with social work team for appropriate discharge planning. Patient has a certain which could be consistent with cluster a personality disorder or negative symptoms of schizophrenia but have no real collateral history and has been a bit of a hermit and is unclear he can return to the place he was previously living. Involuntary Hold Information 96 Hour Hold: 96 Hour Involuntary Admission: Yes 96 Hour Hold Ending Date: 05/31/23 96 Hour Hold Ending Time: 17:28 Attestations NPU Medical Necessity Statement*: Inpatient hospitalization is medically necessary and the clinically appropriate intervention, at this time. We will monitor medications and make changes as indicated. Likely length of stay is 1-2 days. Discharge planning will be significantly impacted by safe options for discharge. Coding Level of Care Code Acute Code for Chg Fwd Diagnoses Hypertensive urgency I16.0 Acute psychosis F23 NSTEMI (non-ST elevated myocardial infarction) I21.4 Acute kidney injury superimposed on CKD N17.9; N18.9 LVH (left ventricular hypertrophy) I51.7 Multiple lacunar infarcts I63.81 Benign positional vertigo H81.10 Blurry vision, right eye H53.8 Chest pain R07.9 Abnormal nuclear stress test R94.39
[2023-06-09] MEDS: clopidogrel 75 mg Tablet PO (18:05)
[2023-06-09] MEDS: trazodone 50 mg Tablet PO (20:05)
[2023-06-09] MEDS: atorvastatin 40 mg Tablet PO (20:05)
[2023-06-09] MEDS: acetaminophen 325 mg Tablet 650 MG PO (20:05)
[2023-06-09 22:00] VITALS: BP 163/85; PULSE 90; RESP 18; TEMP 36.9; O2SAT 96
[2023-06-10 06:00] VITALS: BP 160/99; PULSE 80; RESP 17; O2SAT 99
[2023-06-10] MEDS: carvedilol 3.125 mg Tablet PO ×2 (07:47→17:10)
[2023-06-10] MEDS: chlorthalidone 25 mg Tablet 12.5 MG PO (07:48)
[2023-06-10] MEDS: tamsulosin 0.4 mg Capsule PO (07:48)
[2023-06-10] MEDS: amlodipine 5 mg Tablet PO (07:48)
[2023-06-10] MEDS: isosorbide mononitrate ER 30 mg Tablet PO (07:49)
--- NOTE | 2023-06-10 13:37 | W.PM.NPUPNS ---
Subjective NPU Subjective: Presented today reporting that he is doing okay. He did report that he is not really interested in having his family involved in these processes. He could not give a real reason for that. Had a long discussion about the actual circumstances that led to him being at the emergency department and he continues to report that he was sitting at a local eatery in the chemical dependency therapist showed up and said that he was serving 96-hour hold and he continued to deny any understanding of what set that ball and motion. He denies resisting. Mental Status Exam MSE Comments: This is an underweight white male, in hospital scrubs, with limited grooming and eye contact. No abnormal movements except for mild psychomotor retardation. Cooperative with exam in mild distress. Speech was slightly decreased rate and volume. Mood described okay; affect congruent, and less odd but still somewhat confused. Thought process, mostly organized, but concern for somewhat occult disorganization. Thought content: patient denied any current suicidal or homicidal ideation, there were no delusions reported or noted, patient denied auditory or visual hallucinations. Attention and concentration appeared intact, and memory appeared limited, but none were formally tested.? He was alert and oriented times person and place. Insight, judgment and impulse control appear limited. Vitals/I&O/Wt Last Vital Signs Temp 98.5 F 06/09/23 22:00 Pulse 80 06/10/23 06:00 Resp 17 06/10/23 06:00 BP 160/99 06/10/23 06:00 Pulse Ox 99 06/10/23 06:00 O2 Del Method Room Air 06/10/23 06:00 Data NPU 06/01/23 04:10 06/03/23 09:55 A&P Assessment and plan (1) Benign positional vertigo: (2) Acute kidney injury superimposed on CKD: (3) Hypertensive urgency: (4) Homicidal thoughts: (5) Acute psychosis: (6) Altered mental status: Plan This is a 58-year-old male, who denies any history of mental health or addiction issues who presents on a 96-hour hold with reports of odd behavior but patient denies any aggressive or agitated behavior. 1. Continue current medication. We will try to get some collateral information. 2. Perform Mariano to explore independent functioning. Results suggest need for 24-hour assistance. 3. Resume every 15 minute checks for safety. 4. Encourage individual, group and milieu therapy. 5. Work with social work team for appropriate discharge planning. Patient has a certain which could be consistent with cluster a personality disorder or negative symptoms of schizophrenia but have no real collateral history and has been a bit of a hermit and is unclear he can return to the place he was previously living. Involuntary Hold Information 96 Hour Hold: 96 Hour Involuntary Admission: Yes 96 Hour Hold Ending Date: 05/31/23 96 Hour Hold Ending Time: 17:28 Attestations NPU Medical Necessity Statement*: Inpatient hospitalization is medically necessary and the clinically appropriate intervention, at this time. We will monitor medications and make changes as indicated. Likely length of stay is 3-4 days. Coding Level of Care Code Acute Code for Chg Fwd Diagnoses Benign positional vertigo H81.10 Acute kidney injury superimposed on CKD N17.9; N18.9 Hypertensive urgency I16.0 Homicidal thoughts R45.850 Acute psychosis F23 Altered mental status R41.82
[2023-06-10 14:00] VITALS: BP 139/75; PULSE 74; RESP 16; TEMP 36.7; O2SAT 96
[2023-06-10] MEDS: clopidogrel 75 mg Tablet PO (17:10)
[2023-06-10 19:46] VITALS: BP 165/86; PULSE 70; RESP 17; TEMP 36.7; O2SAT 96
[2023-06-10] MEDS: atorvastatin 40 mg Tablet PO (20:05)
[2023-06-10] MEDS: trazodone 50 mg Tablet PO (20:05)
--- NOTE | 2023-06-10 20:29 | PC.NURSE ---
IN BED RESTING DURING ASSESSMENT. DENIES PAIN. DENIES SI/HI AND AVH AT THIS TIME.PT STATES HE IS JUST WAITING UNTIL THEY FIND ME A PLACE AND FIGURE OUT WHY I'M DIZZY. PT STATES HE HAD A SPELL THIS AM AFTER EATING WHERE HE BECAME DIZZY AND ALMOST PASSED OUT. PT WAS EDUCATED ON RISING SLOWLY AND HYDRATING WELL. PT VERBALIZED UNDERSTANDING.
--- NOTE | 2023-06-10 23:24 | PC.NURSE ---
PT REQUESTS SOMETHING TO HELP ME SLEEP AT APPROXIMATELY 2000 THIS SHIFT. PT WAS GIVEN TRAZODONE 50 MG FOR SLEEP. PT HAS BEEN RESTING IN BED WITH EYES CLOSED SINCE. MEDICATION WAS EFFECTIVE.
[2023-06-11 06:00] VITALS: BP 150/94; PULSE 84; RESP 18; O2SAT 96
--- NOTE | 2023-06-11 07:37 | P.NPUPN_ITS ---
Subjective NPU Subjective: Presented today reporting that he is doing okay. He reported that he is feeling OK and denied any new or pressing symptoms. We discussed that Dr. Vaughn will be returning tomorrow and will continue to pursue the follow ups we have been discussing. Mental Status Exam MSE Comments: This is an underweight white male, in hospital scrubs, with limited grooming and eye contact. No abnormal movements except for mild psychomotor retardation. Cooperative with exam in mild distress. Speech was slightly decreased rate and volume. Mood described okay; affect congruent, and less odd. Thought process, mostly organized, but concern for somewhat occult disorganization. Thought content: patient denied any current suicidal or homicidal ideation, there were no delusions reported or noted, patient denied auditory or visual hallucinations. Attention and concentration appeared intact, and memory appeared limited, but none were formally tested.? He was alert and oriented times person and place. Insight, judgment and impulse control appear limited. Vitals/I&O/Wt Last Vital Signs Temp 98.0 F 06/10/23 19:46 Pulse 84 06/11/23 06:00 Resp 18 06/11/23 06:00 BP 150/94 06/11/23 06:00 Pulse Ox 96 06/11/23 06:00 O2 Del Method Room Air 06/11/23 06:00 Data NPU 06/01/23 04:10 06/03/23 09:55 A&P Assessment and plan (1) Benign positional vertigo: (2) Acute kidney injury superimposed on CKD: (3) Hypertensive urgency: (4) Homicidal thoughts: (5) Acute psychosis: (6) Altered mental status: Plan This is a 58-year-old male, who denies any history of mental health or addiction issues who presents on a 96-hour hold with reports of odd behavior but patient denies any aggressive or agitated behavior. 1. Continue current medication. We will try to get some collateral information. 2. Perform Mariano to explore independent functioning. Results suggest need for 24-hour assistance. 3. Resume every 15 minute checks for safety. 4. Encourage individual, group and milieu therapy. 5. Work with social work team for appropriate discharge planning. Patient has a certain which could be consistent with cluster a per sonality disorder or negative symptoms of schizophrenia but have no real collateral history and has been a bit of a hermit and is unclear he can return to the place he was previously living. Involuntary Hold Information 96 Hour Hold: 96 Hour Involuntary Admission: Yes 96 Hour Hold Ending Date: 05/31/23 96 Hour Hold Ending Time: 17:28 Attestations NPU Medical Necessity Statement*: Inpatient hospitalization is medically necessary and the clinically appropriate intervention, at this time. We will monitor medications and make changes as indicated. Likely length of stay is 3-4 days. Coding Level of Care Code Acute Code for Chg Fwd Diagnoses Benign positional vertigo H81.10 Acute kidney injury superimposed on CKD N17.9; N18.9 Hypertensive urgency I16.0 Homicidal thoughts R45.850 Acute psychosis F23 Altered mental status R41.82
[2023-06-11] MEDS: amlodipine 5 mg Tablet PO (08:00)
[2023-06-11] MEDS: chlorthalidone 25 mg Tablet 12.5 MG PO (08:00)
[2023-06-11] MEDS: isosorbide mononitrate ER 30 mg Tablet PO (08:00)
[2023-06-11] MEDS: carvedilol 3.125 mg Tablet PO ×2 (08:00→17:05)
[2023-06-11] MEDS: tamsulosin 0.4 mg Capsule PO (08:00)
[2023-06-11 14:00] VITALS: BP 152/83; PULSE 81; RESP 17; TEMP 36.8; O2SAT 98
[2023-06-11] MEDS: clopidogrel 75 mg Tablet PO (17:05)
[2023-06-11 20:17] VITALS: BP 160/95; PULSE 81; RESP 17; TEMP 36.4; O2SAT 98
[2023-06-11] MEDS: atorvastatin 40 mg Tablet PO (21:12)
[2023-06-12 06:00] VITALS: BP 160/102; PULSE 88; RESP 16; TEMP 37.2; O2SAT 97
[2023-06-12] MEDS: chlorthalidone 25 mg Tablet PO (08:30)
[2023-06-12] MEDS: carvedilol 3.125 mg Tablet PO ×2 (08:30→17:11)
[2023-06-12] MEDS: isosorbide mononitrate ER 30 mg Tablet PO (08:30)
[2023-06-12] MEDS: amlodipine 5 mg Tablet PO (08:30)
[2023-06-12] MEDS: tamsulosin 0.4 mg Capsule PO (08:30)
[2023-06-12 13:44] VITALS: BP 154/85; PULSE 77; RESP 17; TEMP 36.9; O2SAT 98
--- NOTE | 2023-06-12 14:16 | P.PN_ITS ---
Subjective Subjective: Patient was seen this morning, he is asymptomatic, no chest pain, palpitations, no shortness of breath, no lightheadedness, dizziness -At point I will sign off -I did increase his chlorthalidone to 25 mg once daily -I would discharge him on all his medications that he is currently on including -Plavix 75 mg once daily, Lipitor 40 mg once daily, Coreg 3.125 twice daily, chlorthalidone 25 mg p.o. every 24 hours, Norvasc 5 mg p.o. daily, Flomax 0.4 mg p.o. daily, Imdur 30 mg p.o. daily, nitroglycerin 0.4 mg sublingual every 5 minutes as needed for chest pain up to maximum 3 doses, patient needs to follow- up with cardiology in 1 week, needs to follow-up with nephrology for his CKD in 1 week, needs to see his primary care provider in 1 week -I have gone over his discharge in detail with him, if there is any help that we can do in his discharge please let us know Vitals/I&O/Wt Last Vital Signs Temp 98.5 F 06/12/23 13:44 Pulse 77 06/12/23 13:44 Resp 17 06/12/23 13:44 BP 154/85 06/12/23 13:44 Pulse Ox 98 06/12/23 13:44 O2 Del Method Room Air 06/12/23 06:00 Weight last 48 hrs Weight 65.091 kg Physical Exam Const: COMMON NORMALS: no acute distress and patient oriented x3 Resp: COMMON NORMALS: normal respiratory effort, No retractions, No use of accessory muscles and clear to auscultation bilaterally AUSCULTATION: clear t o auscultation bilaterally Cardio: COMMON NORMALS: regular rate, regular rhythm, S1 normal heart sound present and S2 normal heart sound present RATE: regular rate RHYTHM: regular rhythm HEART SOUNDS: S1 normal heart sound present and S2 normal heart sound present GI: COMMON NORMALS: Normal to inspection, nondistended, normoactive bowel sounds present and non-tender Extremity: COMMON NORMALS: no pedal edema Neuro: COMMON NORMALS: patient oriented x3 Psych: COMMON NORMALS: mental status grossly normal Data 06/01/23 04:10 06/03/23 09:55 A&P Assessment and plan (1) Benign positional vertigo: (2) Acute kidney injury superimposed on CKD: (3) Hypertensive urgency: (4) Homicidal thoughts: (5) Acute psychosis: (6) Altered mental status: Plan -Plavix 75 mg once daily, Lipitor 40 mg once daily, Coreg 3.125 twice daily, chlorthalidone 25 mg p.o. every 24 hours, Norvasc 5 mg p.o. daily, Flomax 0.4 mg p.o. daily, Imdur 30 mg p.o. daily, nitroglycerin 0.4 mg sublingual every 5 minutes as needed for chest pain up to maximum 3 doses, patient needs to follow- up with cardiology in 1 week, needs to follow-up with nephrology for his CKD in 1 week, needs to see his primary care provider in 1 week, repeat BMP in 1 week -I have gone over his discharge in detail with him, if there is any help that we can do in his discharge please let us know Attestations Medical Necessity Statement*: Patient requires hospitalization for acute psychosis Diagnoses Benign positional vertigo H81.10 Acute kidney injury superimposed on CKD N17.9; N18.9 Hypertensive urgency I16.0 Homicidal thoughts R45.850 Acute psychosis F23 Altered mental status R41.82
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
[2023-06-12] MEDS: clopidogrel 75 mg Tablet PO (17:11)
[2023-06-12 20:13] VITALS: BP 124/79; PULSE 94; RESP 18; TEMP 37.1; O2SAT 94
[2023-06-12] MEDS: trazodone 50 mg Tablet PO (20:39)
[2023-06-12] MEDS: atorvastatin 40 mg Tablet PO (20:39)
--- NOTE | 2023-06-12 22:48 | PC.NURSE ---
PT DENIES SI/HI AND AVH AT THIS TIME. PT SITTING ON BENCH WITH RN. NO DISTRESS NOTED. REQUEST SOMETHNG TO HELP HIM SLEEP. TRAZODONE 50 MG WAS GIVEN WITH BEDTIME MEDICATIONS REQUESTED.
[2023-06-13 06:00] VITALS: BP 155/83; PULSE 61; RESP 17; O2SAT 96
[2023-06-13] MEDS: carvedilol 3.125 mg Tablet PO ×2 (08:34→17:04)
[2023-06-13] MEDS: amlodipine 5 mg Tablet PO (08:34)
[2023-06-13] MEDS: isosorbide mononitrate ER 30 mg Tablet PO (08:34)
[2023-06-13] MEDS: tamsulosin 0.4 mg Capsule PO (08:34)
[2023-06-13] MEDS: chlorthalidone 25 mg Tablet PO (08:34)
[2023-06-13 10:35] VITALS: BP 155/85
[2023-06-13 14:31] VITALS: BP 144/80; PULSE 90; RESP 16; TEMP 36.6; O2SAT 98
[2023-06-13] MEDS: clopidogrel 75 mg Tablet PO (16:12)
--- NOTE | 2023-06-13 17:08 | P.NPUPN_ITS ---
Subjective NPU Subjective: Patient is a 58-year-old white male admitted with homicidal ideation and reported psychosis. The patient was friendly and cooperative on the milieu. He had acknowledged that he had difficulties with managing his self-care since his most recent lacunar infarcts. He was agreeable to going into an assisted living facility as he was informed that recommendations were that he receive constant supervision in the household. He had been redirectable on the milieu. He had expressed desire to be able to manage some of his care but stated that his physical restrictions and problems with his memory had prevented him from living independently. Mental Status Exam MSE Comments: This is an underweight white male, in hospital scrubs, with limited grooming and eye contact. No abnormal movements except for moderate psychomotor retardation. He was cooperative with exam in mild distress. Speech was slightly decreased in rate and volume with decreased spontaneous speech noted. He had some word finding difficulties. Mood described okay; affect was flat and mood incongruent. Thought process was mostly organized. Thought content: patient denied any current suicidal or homicidal ideation, there were no delusions reported or noted, patient denied auditory or visual hallucinations. He did not appear to be responding to internal stimuli. Attention and concentration appeared intact, and memory appeared limited, but none were formally tested.? He was alert and oriented times person and place, year, month but not day of week or date. He was able to recall the name of the president. Insight, judgment and impulse control appear poor. Vitals/I&O/Wt Last Vital Signs Temp 98 F 06/13/23 14:31 Pulse 90 06/13/23 14:31 Resp 16 06/13/23 14:31 BP 144/80 06/13/23 14:31 Pulse Ox 98 06/13/23 14:31 O2 Del Method Room Air 06/13/23 14:31 Weight last 48 hrs Weight 65.091 kg Data NPU 06/01/23 04:10 06/03/23 09:55 A&P Assessment and plan (1) Dementia: (2) Benign positional vertigo: (3) Acute kidney injury superimposed on CKD: (4) Hypertensive urgency: (5) Homicidal thoughts: (6) Acute psychosis: (7) Altered mental status: Plan This is a 58-year-old male, who denies any history of mental health or addiction issues who presents on a 96-hour hold with reports of odd behavior but patient denies any aggressive or agitated behavior. 1. Continue current medication. We will try to get some collateral information. 2. Perform Mariano to explore independent functioning. 3. Resume every 15 minute checks for safety. 4. Encourage individual, group and milieu therapy. 5. Work with social work team for appropriate discharge planning with placement in assisted living facility. Involuntary Hold Information 96 Hour Hold: 96 Hour Involuntary Admission: Yes 96 Hour Hold Ending Date: 05/31/23 96 Hour Hold Ending Time: 17:28 Attestations NPU Medical Necessity Statement*: Inpatient hospitalization is medically necessary and the clinically appropriate intervention, at this time. We will monitor medications and make changes as indicated. Likely length of stay is 7-10 days. Placement appears predicated on finding [facility], or other constantly supervised facility. Coding Level of Care Code Acute Code for g Fwd Diagnoses Dementia F03.90 Benign positional vertigo H81.10 Acute kidney injury superimposed on CKD N17.9; N18.9 Hypertensive urgency I16.0 Homicidal thoughts R45.850 Acute psychosis F23 Altered mental status R41.82
[2023-06-13 20:22] VITALS: BP 130/70; PULSE 66; RESP 17; TEMP 37.1; O2SAT 96
[2023-06-13] MEDS: atorvastatin 40 mg Tablet PO (20:35)
[2023-06-13] MEDS: trazodone 50 mg Tablet PO (20:35)
--- NOTE | 2023-06-13 21:47 | PC.NURSE ---
PT IN BED RESTING AROUSES TO VOICE FOR ASSESSMENT. DENIES PAIN. DENIES SI/HI AND AVH AT THIS TIME. STATES HE IS READY TO BE DISCHARGED SO HE CAN START HIS NEW LIFE AT THE RETIREMENT IS GOING TO GO TO. BP HAS BEEN WNL. DENIES CHEST PAIN AND DIZZINESS.
--- NOTE | 2023-06-13 21:47 | PC.NURSE ---
PT GIVEN TRAZODONE 50 MG TO HELP WITH SLEEP. PT IN BED RESTING CURRENTLY MEDICATION EFFECTIVE.
[2023-06-14 06:00] VITALS: BP 130/81; PULSE 89; RESP 18; O2SAT 96
[2023-06-14] MEDS: amlodipine 5 mg Tablet PO (08:16)
[2023-06-14] MEDS: carvedilol 3.125 mg Tablet PO ×2 (08:16→17:56)
[2023-06-14] MEDS: tamsulosin 0.4 mg Capsule PO (08:16)
[2023-06-14] MEDS: isosorbide mononitrate ER 30 mg Tablet PO (08:16)
[2023-06-14] MEDS: chlorthalidone 25 mg Tablet PO (08:16)
[2023-06-14 14:00] VITALS: BP 152/86; PULSE 73; RESP 20; TEMP 36.6; O2SAT 98
--- NOTE | 2023-06-14 16:37 | W.PM.NPUPNS ---
Subjective NPU Subjective: Patient is a 58-year-old white male admitted with homicidal ideation and reported psychosis. The patient was friendly and cooperative on the milieu. He had shown evidence of requiring 21-hour supervision on evaluation from occupational therapy. He did not show any evidence of psychosis. He had shown considerable problems with memory particularly short-term memory as he had been forgetful regarding whether he had taken his medications in the morning or not. He reported good sleep. He had reported desire to enter into a facility where he could have continued 24-hour supervision. He had been compliant on the milieu and redirectable. Mental Status Exam MSE Comments: This is an underweight white male, in hospital scrubs, with limited grooming and eye contact. No abnormal movements except for mild psychomotor retardation. He was cooperative with exam in mild distress. Speech was slightly decreased in rate and volume with normal spontaneous speech noted. He had some word finding difficulties. Mood described good; affect was slightly restricted. Thought process was mostly organized. Thought content: patient denied any current suicidal or homicidal ideation, there were no delusions reported or noted, patient denied auditory or visual hallucinations. He did not appear to be responding to internal stimuli. Attention and concentration appeared intact, and memory appeared limited, but none were formally tested.? He was alert and oriented times person and place, year, month but not day of week or date. Insight, judgment and impulse control appear poor. Vitals/I&O/Wt Last Vital Signs Temp 98 F 06/14/23 14:00 Pulse 73 06/14/23 14:00 Resp 20 H 06/14/23 14:00 BP 152/86 06/14/23 14:00 Pulse Ox 98 06/14/23 14:00 O2 Del Method Room Air 06/14/23 06:00 Data NPU 06/01/23 04:10 06/03/23 09:55 A&P Assessment and plan (1) Dementia: (2) Benign positional vertigo: (3) Acute kidney injury superimposed on CKD: (4) Hypertensive urgency: (5) Homicidal thoughts: (6) Acute psychosis: (7) Altered mental status: Plan This is a 58-year-old male, who denies any history of mental health or addiction issues who presents on a 96-hour hold with reports of odd behavior but patient denies any aggressive or agitated behavior. 1. Continue current medications 2. FRANKLYN functioning suggests that patient requires 24 hour supervision.-not safe to return home to live independently. 3. Resume every 15 minute checks for safety. 4. Encourage individual, group and milieu therapy. 5. Work with social work team for appropriate discharge planning with placement in assisted living facility. Involuntary Hold Information 96 Hour Hold: 96 Hour Involuntary Admission: Yes 96 Hour Hold Ending Date: 05/31/23 96 Hour Hold Ending Time: 17:28 Attestations NPU Medical Necessity Statement*: Inpatient hospitalization is medically necessary and the clinically appropriate intervention, at this time. We will monitor medications and make changes as indicated. Likely length of stay is 7-10 days. Placement appears predicated on finding [facility], or other constantly supervised facility. Coding Level of Care Code Acute Code for [facility] Fwd Diagnoses Dementia F03.90 Benign positional vertigo H81.10 Acute kidney injury superimposed on CKD N17.9; N18.9 Hypertensive urgency I16.0 Homicidal thoughts R45.850 Acute psychosis F23 Altered mental status R41.82
[2023-06-14] MEDS: clopidogrel 75 mg Tablet PO (17:56)
--- NOTE | 2023-06-14 20:35 | PC.NURSE ---
Pt came to the nurses station, and this nurse told him that he had atorvastatin to be administered. Pt stated I'm not taking that, I'm refusing .
--- NOTE | 2023-06-14 20:46 | PC.NURSE ---
This tech and another [employer] were taking vitals and patient stated that he refused and rolled over on his bed to face opposite of us.
[2023-06-15 06:00] VITALS: BP 164/97; PULSE 70; RESP 18; O2SAT 99
[2023-06-15 07:54] VITALS: BP 181/95; PULSE 64; RESP 17; TEMP 36.6; O2SAT 99
[2023-06-15] MEDS: amlodipine 5 mg Tablet PO (07:57)
[2023-06-15] MEDS: carvedilol 3.125 mg Tablet PO ×2 (07:57→17:08)
[2023-06-15] MEDS: chlorthalidone 25 mg Tablet PO (07:57)
[2023-06-15] MEDS: tamsulosin 0.4 mg Capsule PO (07:57)
[2023-06-15] MEDS: isosorbide mononitrate ER 30 mg Tablet PO (07:57)
[2023-06-15] MEDS: alum-mag-hydroxide-sime 30 mL UDC PO (11:36)
[2023-06-15 12:51] VITALS: BP 141/88; PULSE 86; RESP 16; TEMP 36.6; O2SAT 99
--- NOTE | 2023-06-15 15:48 | W.PM.NPUPNS ---
Subjective NPU Subjective: Patient is a 58-year-old white male admitted with homicidal ideation and reported psychosis who had a series of neurological events that appear to have led to some form of vascular dementia. He has been extremely compliant here on the unit. He has expressed desire to receive 24-hour supervision in a living facility. There has been no episodes of aggression or agitation. He understands that he is simply not able to safely return home. He has been redirectable with no issues regarding showering or eating as he responds well to prompting although he continues to be forgetful at times asking whether he had taken his medication while walking up to the nurses station after having just received his medications 5 minutes prior to that time. Mental Status Exam MSE Comments: This is an underweight white male, in hospital scrubs, with limited grooming and eye contact. No abnormal movements except for mild psychomotor retardation. He was cooperative with exam in no acute distress. Speech was slightly decreased in rate and volume with normal spontaneous speech noted. He had some word finding difficulties. Mood described good; affect was slightly restricted.. Thought process was mostly organized. Thought content: patient denied any current suicidal or homicidal ideation, there were no delusions reported or noted, patient denied auditory or visual hallucinations. He did not appear to be responding to internal stimuli. Attention and concentration appeared intact, and memory appeared limited, but none were formally tested.? He was alert and oriented times person and place, year, month but not day of week or date. Insight was fair., judgment was fair. And impulse control appeared limited. Vitals/I&O/Wt Last Vital Signs Temp 97.8 F 06/15/23 12:51 Pulse 86 06/15/23 12:51 Resp 16 06/15/23 12:51 BP 141/88 06/15/23 12:51 Pulse Ox 99 06/15/23 12:51 O2 Del Method Room Air 06/15/23 06:00 Data NPU 06/01/23 04:10 06/03/23 09:55 A&P Assessment and plan (1) Dementia: (2) Benign positional vertigo: (3) Acute kidney injury superimposed on CKD: (4) Hypertensive urgency: (5) Homicidal thoughts: (6) Acute psychosis: (7) Altered mental status: Plan This is a 58-year-old male, who denies any history of mental health or addiction issues who presents on a 96-hour hold with reports of odd behavior but patient denies any aggressive or agitated behavior. 1. Continue current medications 2. FRANKLYN functioning suggests that patient requires 24 hour supervision.-not safe to return home to live independently. 3. Resume every 15 minute checks for safety. 4. Encourage individual, group and milieu therapy. 5. Work with social work team for appropriate discharge planning with placement in assisted living facility/prison. Involuntary Hold Information 96 Hour Hold: 96 Hour Involuntary Admission: Yes 96 Hour Hold Ending Date: 05/31/23 96 Hour Hold Ending Time: 17:28 Attestations NPU Medical Necessity Statement*: Inpatient hospitalization is medically necessary and the clinically appropriate intervention at this time. We will monitor medications and make changes as indicated. His likely length of stay is 7-10 days. Placement appears predicated on finding [facility], or other constantly supervised facility. Coding Level of Care Code Acute Code for Chg Fwd Diagnoses Dementia F03.90 Benign positional vertigo H81.10 Acute kidney injury superimposed on CKD N17.9; N18.9 Hypertensive urgency I16.0 Homicidal thoughts R45.850 Acute psychosis F23 Altered mental status R41.82
[2023-06-15 17:04] VITALS: BP 148/90; PULSE 67; RESP 16; TEMP 36.6; O2SAT 97
[2023-06-15] MEDS: clopidogrel 75 mg Tablet PO (17:08)
[2023-06-15 20:27] VITALS: BP 185/102; PULSE 88; RESP 14; TEMP 37; O2SAT 97
[2023-06-15] MEDS: atorvastatin 40 mg Tablet PO (20:45)
[2023-06-16 06:00] VITALS: BP 161/65; PULSE 79; RESP 16; O2SAT 98
[2023-06-16] MEDS: amlodipine 5 mg Tablet PO (07:45)
[2023-06-16] MEDS: carvedilol 3.125 mg Tablet PO (07:45)
[2023-06-16] MEDS: isosorbide mononitrate ER 30 mg Tablet PO (07:45)
[2023-06-16] MEDS: tamsulosin 0.4 mg Capsule PO (07:45)
[2023-06-16] MEDS: chlorthalidone 25 mg Tablet PO (07:45)
[2023-06-16 14:00] VITALS: BP 130/78; PULSE 82; RESP 16; O2SAT 97
--- NOTE | 2023-06-16 15:00 | PC.NURSE ---
Patient reporting feeling light-headed and dizzy. Patient states that it comes and goes. Patient's vitals: BP 130/78; HR: 82; o2 97% RA, RR 16. This nurse notified doctor of this.
[2023-06-16] MEDS: acetaminophen 325 mg Tablet 650 MG PO (15:35)
[2023-06-16] MEDS: clopidogrel 75 mg Tablet PO (17:21)
--- NOTE | 2023-06-16 17:30 | W.PM.NPUPNS ---
Subjective NPU Subjective: Patient is a 58-year-old white male admitted with homicidal ideation and reported psychosis who had a series of neurological events that appear to have led to some form of vascular dementia. Patient has been friendly and cooperative on the milieu. He continued to be confused at times requiring some prompting as he had frequently forgotten why he had approached the nursing desk. He had been pliant with his medications. He had complained of some dizziness which appear to have abated later in the afternoon. He described his mood is okay. Mental Status Exam MSE Comments: This is an underweight white male, in hospital scrubs, with limited grooming and eye contact. No abnormal movements except for mild psychomotor re slowing.. He was cooperative with exam in no acute distress. Speech was slightly decreased in rate and volume with normal spontaneous speech noted. He had some word finding difficulties. Mood described okay.; affect was slightly restricted.. Thought process was mostly organized. Thought content: patient denied any current suicidal or homicidal ideation, there were no delusions reported or noted, patient denied auditory or visual hallucinations. He did not appear to be responding to internal stimuli. Attention and concentration appeared intact, and memory appeared limited, but none were formally tested.? He was alert and oriented times person and place, year, month but not day of week or date. Insight was fair., judgment was limited.. And impulse control appeared limited. Vitals/I&O/Wt Last Vital Signs Temp 98.6 F 06/15/23 20:27 Pulse 82 06/16/23 14:00 Resp 16 06/16/23 14:00 BP 130/78 06/16/23 14:00 Pulse Ox 97 06/16/23 14:00 O2 Del Method Room Air 06/16/23 14:00 Data NPU 06/01/23 04:10 06/03/23 09:55 A&P Assessment and plan (1) Dementia: (2) Benign positional vertigo: (3) Acute kidney injury superimposed on CKD: (4) Hypertensive urgency: (5) Homicidal thoughts: (6) Acute psychosis: (7) Altered mental status: Plan This is a 58-year-old male, who denies any history of mental health or addiction issues who presents on a 96-hour hold with reports of odd behavior but patient denies any aggressive or agitated behavior. 1. Continue current medications 2. FRANKLYN functioning suggests that patient requires 24 hour supervision.-not safe to return home to live independently. 3. Resume every 15 minute checks for safety. 4. Encourage individual, group and milieu therapy. 5. Work with social work team for appropriate discharge planning with placement in assisted living facility/care home.-NOT able to safely return home. Involuntary Hold Information 96 Hour Hold: 96 Hour Involuntary Admission: Yes 96 Hour Hold Ending Date: 05/31/23 96 Hour Hold Ending Time: 17:28 Attestations NPU Medical Necessity Statement*: Inpatient hospitalization is medically necessary and the clinically appropriate intervention at this time. We will monitor medications and make changes as indicated. His likely length of stay is 7-10 days. Placement appears predicated on finding [facility], or other constantly supervised facility. Coding Level of Care Code Acute Code for Chg Fwd Diagnoses Dementia F03.90 Benign positional vertigo H81.10 Acute kidney injury superimposed on CKD N17.9; N18.9 Hypertensive urgency I16.0 Homicidal thoughts R45.850 Acute psychosis F23 Altered mental status R41.82
--- NOTE | 2023-06-16 21:04 | PC.NURSE ---
Pt is now refusing to take medications, will not answer the nurse just shakes his head no. Explained that medicine included meclizine d/t c/o dizziness. Pt con't to refuse medication.
[2023-06-16] MEDS: meclizine 25 mg tablet PO (21:37)
[2023-06-17 06:00] VITALS: BP 178/109; PULSE 82; RESP 19; O2SAT 100
--- NOTE | 2023-06-17 06:35 | PC.NURSE ---
Pt refusing b/p recheck and is currently hypertensive. Refuses to let staff recheck a manual b/p for accuracy. Per dayshift staff did refuse PM dose of Coreg. Will notify physician.
[2023-06-17] MEDS: chlorthalidone 25 mg Tablet PO (08:36)
[2023-06-17] MEDS: carvedilol 3.125 mg Tablet PO (08:36)
[2023-06-17] MEDS: isosorbide mononitrate ER 30 mg Tablet PO (08:36)
[2023-06-17] MEDS: amlodipine 5 mg Tablet PO (08:36)
[2023-06-17] MEDS: tamsulosin 0.4 mg Capsule PO (08:37)
[2023-06-17 14:00] VITALS: BP 116/71; PULSE 86; RESP 16; TEMP 36.7; O2SAT 97
--- NOTE | 2023-06-17 16:03 | P.NPUPN_ITS ---
Subjective NPU Subjective: Patient is a 58-year-old white male admitted with homicidal ideation and reported psychosis who had a series of neurological events that appear to have led to some form of vascular dementia. There has been no evidence of any psychosis at this time. He has made no threatening behaviors. He has been redirectable but continued to require prompting as he was frequently forgetful regarding his medications. He again had expressed gratitude over not having to return home due to his relative insight about his current cognitive issues. He had complained of some dizziness yesterday that appear to be relieved by meclizine. He had reported that the dizziness was worse with the movement of h is head to the left and to the right. He reported no side effects from his current medication regimen. He had provided further information regarding his medical problems including his past history of lacunar infarcts. Previous records had indicated the patient does have a history of benign positional vertigo. Mental Status Exam MSE Comments: This is an underweight white male, in hospital scrubs, with limited grooming and eye contact. No abnormal movements except for mild psychomotor slowing. He was cooperative with exam in no acute distress. Speech was slightly decreased in rate and volume with normal spontaneous speech noted. He had some word finding difficulties. Mood described as frustrated. His affect was slightly restricted. Thought process was mostly organized. Thought content: patient denied any current suicidal or homicidal ideation, there were no delusions reported or no terry, patient denied auditory or visual hallucinations. He did not appear to be responding to internal stimuli. Attention and concentration appeared intact, and memory appeared limited, but none were formally tested.? He was alert and oriented times person and place, year, month but not day of week or date. Insight was fair., judgment was limited.. And impulse control appeared limited. Vitals/I&O/Wt Last Vital Signs Temp 98.0 F 06/17/23 14:00 Pulse 86 06/17/23 14:00 Resp 16 06/17/23 14:00 BP 116/71 06/17/23 14:00 Pulse Ox 97 06/17/23 14:00 O2 Del Method Room Air 06/17/23 14:00 Data NPU 06/01/23 04:10 06/03/23 09:55 A&P Assessment and plan (1) Dementia: (2) Benign positional vertigo: (3) Acute kidney injury superimposed on CKD: (4) Hypertensive urgency: (5) Homicidal thoughts: (6) Acute psychosis: (7) Altered mental status: Plan This is a 58-year-old male, who denies any history of mental health or addiction issues who presents on a 96-hour hold with reports of odd behavior but patient denies any aggressive or agitated behavior. 1. Continue current medications 2. FRANKLYN functioning suggests that patient requires 24 hour supervision.-not safe to return home to live independently. 3. Resume every 15 minute checks for safety. 4. Encourage individual, group and milieu therapy. 5. Work with social work team for appropriate discharge planning with placement in assisted living facility/senior living.-NOT able to safely return home. Involuntary Hold Information 96 Hour Hold: 96 Hour Involuntary Admission: Yes 96 Hour Hold Ending Date: 05/31/23 96 Hour Hold Ending Time: 17:28 Attestations NPU Medical Necessity Statement*: Inpatient hospitalization is medically necessary and the clinically appropriate intervention at this time. We will monitor medications and make changes as indicated. His likely length of stay is 7-10 days. Placement appears predicated on finding [facility], or other constantly supervised facility. Coding Level of Care Code Acute Code for [facility] Fwd Diagnoses Dementia F03.90 Benign positional vertigo H81.10 Acute kidney injury superimposed on CKD N17.9; N18.9 Hypertensive urgency I16.0 Homicidal thoughts R45.850 Acute psychosis F23 Altered mental status R41.82
--- NOTE | 2023-06-17 16:58 | PC.NURSE ---
Patient refused carvedilol and clopidogrel.
[2023-06-17 20:09] VITALS: BP 151/85; PULSE 88; RESP 17; O2SAT 95
[2023-06-17] MEDS: atorvastatin 40 mg Tablet PO (21:20)
[2023-06-18 06:00] VITALS: BP 162/99; PULSE 78; RESP 18; O2SAT 98
--- NOTE | 2023-06-18 07:35 | PC.NURSE ---
Pt was inspecting and holding a Rubix cube and stated that this square that I'm holding holds all the knowledge of the universe .
[2023-06-18] MEDS: amlodipine 5 mg Tablet PO (08:59)
[2023-06-18] MEDS: tamsulosin 0.4 mg Capsule PO (09:00)
[2023-06-18] MEDS: chlorthalidone 25 mg Tablet PO (09:00)
[2023-06-18] MEDS: carvedilol 3.125 mg Tablet PO ×2 (09:00→16:37)
[2023-06-18] MEDS: isosorbide mononitrate ER 30 mg Tablet PO (09:00)
--- NOTE | 2023-06-18 13:14 | P.NPUPN_ITS ---
Subjective NPU Subjective: Patient is a 58-year-old white male admitted with homicidal ideation and reported psychosis who had a series of neurological events that appear to have led to some form of vascular dementia. The patient has continued to have problems with his memory. He has been pleasant and cooperative. He had been somewhat resistant at night to taking his medications and appeared at times confused but was later able to take his medications without incident. He had reported no recent episodes of dizziness. He had eaten well and stated that he was sleeping better. He denied any feelings of hopelessness or worthlessness at this time. Patient had reported being frustrated at not having gone to another living facility. He had acknowledged that he would not be able to care for himself at home. There has been no evidence of any psychosis at this time. Mental Status Exam MSE Comments: This is an underweight white male, in hospital scrubs, with adequate grooming and fair eye contact. No abnormal movements except for mild psychomotor slowing. He was cooperative with exam in no acute distress. Speech was normal in rate and volume with normal spontaneous speech noted. He had some word finding difficulties. Mood described as frustrated. His affect was slightly restricted. Thought process was mostly organized. Thought content: patient denied any current suicidal or homicidal ideation, there were no delusions reported or noted, patient denied auditory or visual hallucinations. He did not appear to be responding to internal stimuli. Attention and concentration appeared intact, and memory appeared limited, but none were formally tested.? He was alert and oriented times person and place, year, month but not day of week or date. Insight was fair. judgment was limited. And impulse control appeared limited. Vitals/I&O/Wt Last Vital Signs Temp 98.0 F 06/17/23 14:00 Pulse 78 06/18/23 06:00 Resp 18 06/18/23 06:00 BP 162/99 06/18/23 06:00 Pulse Ox 98 06/18/23 06:00 O2 Del Method Room Air 06/18/23 06:00 Data NPU 06/01/23 04:10 06/03/23 09:55 A&P Assessment and plan (1) Dementia: (2) Benign positional vertigo: (3) Acute kidney injury superimposed on CKD: (4) Hypertensive urgency: (5) Homicidal thoughts: (6) Acute psychosis: (7) Altered mental status: Plan This is a 58-year-old male, who denies any history of mental health or addiction issues who presents on a 96-hour hold with reports of odd behavior but patient denies any aggressive or agitated behavior. 1. Continue current medications 2. FRANKLYN functioning suggests that patient requires 24 hour supervision.-not safe to return home to live independently. 3. Resume every 15 minute checks for safety. 4. Encourage individual, group and milieu therapy. 5. Work with social work team for appropriate discharge planning with placement in assisted living facility[facility]NOT able to safely return home. Involuntary Hold Information 96 Hour Hold: 96 Hour Involuntary Admission: Yes 96 Hour Hold Ending Date: 05/31/23 96 Hour Hold Ending Time: 17:28 Attestations NPU Medical Necessity Statement*: Inpatient hospitalization is medically necessary and the clinically appropriate intervention at this time. We will monitor medications and make changes as indicated. His likely length of stay is 7-10 days. Placement appears predicated on finding [facility], or other constantly supervised facility. Coding Level of Care Code Acute Code for [facility] Diagnoses Dementia F03.90 Benign positional vertigo H81.10 Acute kidney injury superimposed on CKD N17.9; N18.9 Hypertensive urgency I16.0 Homicidal thoughts R45.850 Acute psychosis F23 Altered mental status R41.82
[2023-06-18 13:43] VITALS: BP 149/79; PULSE 80; RESP 17; TEMP 36.8; O2SAT 98
[2023-06-18] MEDS: clopidogrel 75 mg Tablet PO (16:38)
[2023-06-18 19:49] VITALS: BP 144/76; PULSE 73; RESP 17; TEMP 37.2; O2SAT 97
[2023-06-18] MEDS: atorvastatin 40 mg Tablet PO (19:59)
[2023-06-18] MEDS: trazodone 50 mg Tablet PO (23:00)
[2023-06-19 06:00] VITALS: BP 171/102; PULSE 65; RESP 18; TEMP 37; O2SAT 97
[2023-06-19] MEDS: chlorthalidone 25 mg Tablet PO (08:04)
[2023-06-19] MEDS: carvedilol 3.125 mg Tablet PO ×2 (08:04→16:04)
[2023-06-19] MEDS: amlodipine 5 mg Tablet PO (08:04)
[2023-06-19] MEDS: tamsulosin 0.4 mg Capsule PO (08:04)
[2023-06-19] MEDS: isosorbide mononitrate ER 30 mg Tablet PO (08:04)
[2023-06-19 14:00] VITALS: BP 117/80; PULSE 86; RESP 16; TEMP 36.9; O2SAT 97
--- NOTE | 2023-06-19 14:15 | W.PM.NPUPNS ---
Subjective NPU Subjective: Patient is a 58-year-old white male admitted with homicidal ideation and reported psychosis who had a series of neurological events that appear to have led to some form of vascular dementia. He had remained compliant and cooperative on the milieu. There has been no threatening behavior noted. He had denied any thoughts of hurting himself or others. He had continued to have periods of sundowning where he appeared more forgetful and required some distraction later at night. He continued to report having ideas of being able to somehow by a place but stated that later that he understood that he could not manage the complexities of living by himself and taking care of himself. The patient had required some help with prompting for attending to activities of daily living but for the most part was able to attend to the basic activities of daily living without issue. He continued to struggle with numbering his routine medications. He did not report any episodes of dizziness or blurriness of vision today. Mental Status Exam MSE Comments: This is an underweight white male, in hospital scrubs, with good grooming and fair eye contact. No abnormal movements except for mild psychomotor slowing. He was cooperative with exam in no acute distress. Speech was normal in rate and volume with normal spontaneous speech noted. There was word finding difficulties today. Mood described as frustrated. His affect was remained restricted. Thought process was linear and mostly organized. Thought content: patient denied any current suicidal or homicidal ideation, there were no delusions reported or noted, patient denied auditory or visual hallucinations. He did not appear to be responding to internal stimuli. Attention and concentration appeared intact, and memory appeared poor in regards to recent and remote memory. He was alert and oriented times person and place, year, month but not day of week or date. Insight was fair. judgment was limited. His impulse control appeared limited. Vitals/I&O/Wt Last Vital Signs Temp 98.6 F 06/19/23 06:00 Pulse 65 06/19/23 06:00 Resp 18 06/19/23 06:00 BP 171/102 06/19/23 06:00 Pulse Ox 97 06/19/23 06:00 O2 Del Method Room Air 06/19/23 06:00 Weight last 48 hrs Weight 64.319 kg Data NPU 06/01/23 04:10 06/03/23 09:55 A&P Assessment and plan (1) Dementia: (2) Benign positional vertigo: (3) Acute kidney injury superimposed on CKD: (4) Hypertensive urgency: (5) Homicidal thoughts: (6) Acute psychosis: (7) Altered mental status: Plan This is a 58-year-old male, who denies any history of mental health or addiction issues who presents on a 96-hour hold with reports of odd behavior but patient denies any aggressive or agitated behavior. 1. Continue current medications 2. FRANKLYN functioning suggests that patient requires 24 hour supervision.-not safe to return home to live independently. 3. Resume every 15 minute checks for safety. 4. Encourage individual, group and milieu therapy. 5. Seeking fdc placement. Involuntary Hold Information 96 Hour Hold: 96 Hour Involuntary Admission: Yes 96 Hour Hold Ending Date: 05/31/23 96 Hour Hold Ending Time: 17:28 Attestations NPU Medical Necessity Statement*: Inpatient hospitalization is medically necessary and the clinically appropriate intervention at this time. We will monitor medications and make changes as indicated. His likely length of stay is 7-10 days. Placement appears predicated on finding [facility], or other constantly supervised facility. Coding Level of Care Code Acute Code for [facility] Diagnoses Dementia F03.90 Benign positional vertigo H81.10 Acute kidney injury superimposed on CKD N17.9; N18.9 Hypertensive urgency I16.0 Homicidal thoughts R45.850 Acute psychosis F23 Altered mental status R41.82
[2023-06-19] MEDS: clopidogrel 75 mg Tablet PO (16:04)
[2023-06-19 19:41] VITALS: BP 131/81; PULSE 89; RESP 17; TEMP 37.3; O2SAT 96
[2023-06-19] MEDS: atorvastatin 40 mg Tablet PO (20:03)
[2023-06-19] MEDS: trazodone 50 mg Tablet PO (20:06)
[2023-06-20 06:00] VITALS: BP 154/85; PULSE 66; RESP 16; O2SAT 98
[2023-06-20] MEDS: amlodipine 5 mg Tablet PO (07:40)
[2023-06-20] MEDS: carvedilol 3.125 mg Tablet PO ×2 (07:40→15:23)
[2023-06-20] MEDS: tamsulosin 0.4 mg Capsule PO (07:41)
[2023-06-20] MEDS: chlorthalidone 25 mg Tablet PO (07:41)
[2023-06-20] MEDS: isosorbide mononitrate ER 30 mg Tablet PO (07:41)
[2023-06-20 14:00] VITALS: BP 149/92; PULSE 82; RESP 16; TEMP 36.6; O2SAT 99
--- NOTE | 2023-06-20 14:55 | P.NPUPN_ITS ---
Subjective NPU Subjective: Patient is a 58-year-old white male admitted with homicidal ideation and reported psychosis who had a series of neurological events that appear to have led to some form of vascular dementia. He had remained compliant and cooperative on the milieu. There has been no threatening behavior noted. He had denied any thoughts of hurting himself or others. He remains without any psychotropic medication at this time. He does appear to have greater confusion later in the afternoon and has been compliant with taking his morning medications. He had reported that he is waiting here for a place to live and the team continues to seek a placement for this patient given his inability to live independently at home and possibly put himself in danger given his significant medical problems. Mental Status Exam MSE Comments: This is an underweight white male, in hospital scrubs, with good grooming and fair eye contact. No abnormal movements except for mild psychomotor slowing. He was cooperative with exam in no acute distress. Speech was normal in rate and volume with normal spontaneous speech noted. There were continued difficulties with word finding noted. Mood described as good. His affect was pleasant and mood-congruent. Thought process was linear and mostly organized. Thought con tent: patient denied any current suicidal or homicidal ideation, there were no delusions reported or noted, patient denied auditory or visual hallucinations. He did not appear to be responding to internal stimuli. Attention and concentration appeared intact, and memory appeared poor in regards to recent and remote memory. He was alert and oriented times person and place, year, month but not day of week or date. Insight was fair. judgment was limited. His impulse control appeared limited. Vitals/I&O/Wt Last Vital Signs Temp 98 F 06/20/23 14:00 Pulse 82 06/20/23 14:00 Resp 16 06/20/23 14:00 BP 149/92 06/20/23 14:00 Pulse Ox 99 06/20/23 14:00 O2 Del Method Room Air 06/20/23 14:00 Weight last 48 hrs Weight 64.319 kg Data NPU 06/01/23 04:10 06/03/23 09:55 A&P Assessment and plan (1) Dementia: (2) Benign positional vertigo: (3) Acute kidney injury superimposed on CKD: (4) Hypertensive urgency: (5) Homicidal thoughts: (6) Acute psychosis: (7) Altered mental status: Plan This is a 58-year-old male, who denies any history of mental health or addiction issues who presents on a 96-hour hold with reports of odd behavior but patient denies any aggressive or agitated behavior. 1. Continue current medications 2. FRANKLYN functioning suggests that patient requires 24 hour supervision.-not safe to return home to live independently. 3. Resume every 15 minute checks for safety. 4. Encourage individual, group and milieu therapy. 5. Seeking assisted placement or ACF. Involuntary Hold Information 96 Hour Hold: 96 Hour Involuntary Admission: Yes 96 Hour Hold Ending Date: 05/31/23 96 Hour Hold Ending Time: 17:28 Attestations NPU Medical Necessity Statement*: Inpatient hospitalization is medically necessary and the clinically appropriate intervention at this time. We will monitor medications and make changes as indicated. His likely length of stay is 7-10 days. Placement appears predicated on finding ACF, or other constantly supervised facility. Coding Level of Care Code Acute Code for [facility] Fwd Diagnoses Dementia F03.90 Benign positional vertigo H81.10 Acute kidney injury superimposed on CKD N17.9; N18.9 Hypertensive urgency I16.0 Homicidal thoughts R45.850 Acute psychosis F23 Altered mental status R41.82
[2023-06-20] MEDS: clopidogrel 75 mg Tablet PO (15:23)
[2023-06-20 19:47] VITALS: BP 161/89; PULSE 68; RESP 18; TEMP 36.7; O2SAT 97
[2023-06-20] MEDS: trazodone 50 mg Tablet PO (20:01)
[2023-06-20] MEDS: atorvastatin 40 mg Tablet PO (20:01)
[2023-06-21] MEDS: OLANZapine 5 mg ODT PO (00:14)
[2023-06-21 06:00] VITALS: BP 155/95; PULSE 74; RESP 17; O2SAT 96
[2023-06-21] MEDS: amlodipine 5 mg Tablet PO (08:09)
[2023-06-21] MEDS: tamsulosin 0.4 mg Capsule PO (08:09)
[2023-06-21] MEDS: isosorbide mononitrate ER 30 mg Tablet PO (08:09)
[2023-06-21] MEDS: chlorthalidone 25 mg Tablet PO (08:09)
[2023-06-21] MEDS: carvedilol 3.125 mg Tablet PO ×2 (08:11→17:28)
[2023-06-21 14:00] VITALS: BP 139/86; PULSE 75; RESP 16; O2SAT 99
--- NOTE | 2023-06-21 16:35 | P.NPUPN_ITS ---
Subjective NPU Subjective: Patient is a 58-year-old white male admitted with homicidal ideation and reported psychosis who had a series of neurological events that appear to have led to some form of vascular dementia. Patient had described having a neck fracture that had required him to be in a neck brace. He had reported having seen his spinal surgeon near [place] that had spoken to him about potentially being paralyzed someday. He remained cooperative on the milieu and friendly. He continued to have episodes of owning with more confusion noted later in the afternoon. He had no difficulties with taking his medications today. He had attended groups and was able to communicate but did not provide overly elaborate details in the group. He denied any homicidal or suicidal thoughts. There was no evidence of any aggression. He had required some prompting for activities of daily living. Mental Status Exam MSE Comments: This is an underweight white male, in hospital scrubs, with good grooming and fair eye contact. No abnormal movements except for mild psychomotor slowing. He was cooperative with exam in no acute distress. Speech was normal in rate and volume with normal spontaneous speech noted. There were continued difficulties with word finding noted. Mood described as okay. His affect was pleasant and mood-congruent. Thought process was linear and mostly organized. Thought content: patient denied any current suicidal or homicidal ideation, there were no delusions reported or noted, patient denied auditory or visual hallucinations. He did not appear to be responding to internal stimuli. Attention and concentration appeared intact, and memory appeared poor in regards to recent and remote memory. He was alert and oriented times person and place month and year today. Insight was fair. judgment was limited. His impulse control appeared limited. Vitals/I&O/Wt Last Vital Signs Temp 98.1 F 06/20/23 19:47 Pulse 75 06/21/23 14:00 Resp 16 06/21/23 14:00 BP 139/86 06/21/23 14:00 Pulse Ox 99 06/21/23 14:00 O2 Del Method Room Air 06/21/23 06:00 Data NPU 06/01/23 04:10 06/03/23 09:55 A&P Assessment and plan (1) Dementia: (2) Benign positional vertigo: (3) Acute kidney injury superimposed on CKD: (4) Hypertensive urgency: (5) Homicidal thoughts: (6) Acute psychosis: (7) Altered mental status: Plan This is a 58-year-old male, who denies any history of mental health or addiction issues who presents on a 96-hour hold with reports of odd behavior but patient denies any aggressive or agitated behavior. 1. Continue current medications for multiple medical issues. 2. FRANKLYN functioning suggests that patient requires 24 hour supervision.-not safe to return home to live independently. 3. Resume every 15 minute checks for safety. 4. Encourage individual, group and milieu therapy. 5. Seeking correction placement or ACF. Involuntary Hold Information 96 Hour Hold: 96 Hour Involuntary Admission: Yes 96 Hour Hold Ending Date: 05/31/23 96 Hour Hold Ending Time: 17:28 Attestations NPU Medical Necessity Statement*: Inpatient hospitalization is medically necessary and the clinically appropriate intervention at this time. We will monitor medications and make changes as indicated. His likely length of stay is 7-10 days. Placement appears predicated on finding ACF, or other constantly supervised facility. Coding Level of Care Code Acute Code for [facility] Diagnoses Dementia F03.90 Benign positional vertigo H81.10 Acute kidney injury superimposed on CKD N17.9; N18.9 Hypertensive urgency I16.0 Homicidal thoughts R45.850 Acute psychosis F23 Altered mental status R41.82
[2023-06-21] MEDS: clopidogrel 75 mg Tablet PO (17:28)
[2023-06-21 20:09] VITALS: BP 138/72; PULSE 70; RESP 16; TEMP 36.8; O2SAT 99
[2023-06-21] MEDS: atorvastatin 40 mg Tablet PO (21:00)
[2023-06-21] MEDS: trazodone 50 mg Tablet PO (21:00)
[2023-06-22 06:00] VITALS: BP 156/98; PULSE 91; RESP 16; TEMP 36.6; O2SAT 98
[2023-06-22] MEDS: carvedilol 3.125 mg Tablet PO ×2 (08:37→15:18)
[2023-06-22] MEDS: isosorbide mononitrate ER 30 mg Tablet PO (08:37)
[2023-06-22] MEDS: tamsulosin 0.4 mg Capsule PO (08:37)
[2023-06-22] MEDS: amlodipine 5 mg Tablet PO (08:37)
[2023-06-22] MEDS: chlorthalidone 25 mg Tablet PO (08:37)
[2023-06-22 14:00] VITALS: BP 126/74; PULSE 76; RESP 18; TEMP 36.7; O2SAT 97
[2023-06-22] MEDS: clopidogrel 75 mg Tablet PO (15:18)
--- NOTE | 2023-06-22 17:16 | P.NPUPN_ITS ---
Subjective NPU Subjective: Patient is a 58-year-old white male admitted with homicidal ideation and reported psychosis who had a series of neurological events that appear to have led to some form of vascular dementia. The patient reported no problems here. He was cooperative and somewhat social on the milieu. He had been able to attend groups. He had complained of having some memory problems. He had been at times forgetful to engage in activities of daily living. He had not been found to be eligible for custodial placement or retirement placement due to reports of previous homicidal ideation although the patient has been calm and cooperative and not voicing any thoughts of hurting himself or others. Mental Status Exam MSE Comments: This is an underweight white male, in hospital scrubs, with good grooming and fair eye contact. No abnormal movements except for mild psychomotor slowing. He was cooperative with exam in no acute distress. Speech was normal in rate and volume with normal spontaneous speech noted. There were continued difficulties with word finding noted. Mood described as all right. His affect was pleasant and mood-congruent. Thought process was linear and mostly organized. Thought content: patient denied any current suicidal or homicidal ideation, there were no delusions reported or noted, patient denied auditory or visual hallucinations. He did not appear to be responding to internal stimuli. Attention and concentration appeared intact, and memory appeared poor in regards to recent and remote memory. He was alert and oriented times person and place month and year but not date. Insight was fair. judgment was limited. His impulse control appeared limited. Vitals/I&O/Wt Last Vital Signs Temp 98.1 F 06/22/23 14:00 Pulse 76 06/22/23 14:00 Resp 18 06/22/23 14:00 BP 126/74 06/22/23 14:00 Pulse Ox 97 06/22/23 14:00 O2 Del Method Room Air 06/22/23 06:00 Data NPU 06/01/23 04:10 06/03/23 09:55 A&P Assessment and plan (1) Dementia: (2) Benign positional vertigo: (3) Acute kidney injury superimposed on CKD: (4) Hypertensive urgency: (5) Homicidal thoughts: (6) Acute psychosis: (7) Altered mental status: Plan This is a 58-year-old male, who denies any history of mental health or addiction issues who presents on a 96-hour hold with reports of odd behavior but patient d enies any aggressive or agitated behavior. 1. Continue current medications for multiple medical issues. 2. FRANKLYN functioning suggests that patient requires 24 hour supervision.-not safe to return home to live independently. 3. Resume every 15 minute checks for safety. 4. Encourage individual, group and milieu therapy. 5. Seeking retirement placement or ACF. Involuntary Hold Information 96 Hour Hold: 96 Hour Involuntary Admission: Yes 96 Hour Hold Ending Date: 05/31/23 96 Hour Hold Ending Time: 17:28 Attestations NPU Medical Necessity Statement*: Inpatient hospitalization is medically necessary and the clinically appropriate intervention at this time. We will monitor medications and make changes as indicated. His likely length of stay is 7-10 days. Placement appears predicated on finding ACF, or other constantly supervised facility. Coding Level of Care Code Acute Code for [facility] Fwd Diagnoses Dementia F03.90 Benign positional vertigo H81.10 Acute kidney injury superimposed on CKD N17.9; N18.9 Hypertensive urgency I16.0 Homicidal thoughts R45.850 Acute psychosis F23 Altered mental status R41.82
[2023-06-22 20:32] VITALS: BP 149/86; PULSE 81; RESP 16; TEMP 36.4; O2SAT 99
[2023-06-22] MEDS: atorvastatin 40 mg Tablet PO (21:19)
[2023-06-22] MEDS: trazodone 50 mg Tablet PO (21:19)
[2023-06-23 06:00] VITALS: BP 155/101; PULSE 97; RESP 18; O2SAT 97
[2023-06-23] MEDS: chlorthalidone 25 mg Tablet PO (08:14)
[2023-06-23] MEDS: isosorbide mononitrate ER 30 mg Tablet PO (08:14)
[2023-06-23] MEDS: amlodipine 5 mg Tablet PO (08:14)
[2023-06-23] MEDS: tamsulosin 0.4 mg Capsule PO (08:14)
[2023-06-23] MEDS: carvedilol 3.125 mg Tablet PO ×2 (08:14→15:13)
--- NOTE | 2023-06-23 12:22 | W.PM.NPUPNS ---
Subjective NPU Subjective: Patient presented today reporting that he is feeling. We discussed the plan to repeat his Mariano with the thought that this episode. 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 The possibly he was having some cognitive issues that were related to his cardiac functioning such that he was acting or had altered mental status prior to this cardiac event. We discussed that it is Kells shows modest to moderate improvement we will consider discharging to less restrictive measures with increased outpatient support. Mental Status Exam MSE Comments: This is an underweight white male, in hospital scrubs, with good grooming and fair eye contact. No abnormal movements except for mild psychomotor slowing. He was cooperative with exam in no acute distress. Speech was normal in rate and volume with normal spontaneous speech noted. There were continued difficulties with word finding noted. Mood described as all right. His affect was pleasant and mood-congruent. Thought process was linear and mostly organized. Thought content: patient denied any current suicidal or homicidal ideation, there were no delusions reported or noted, patient denied auditory or visual hallucinations. He did not appear to be responding to internal stimuli. Attention and concentration appeared intact, and memory appeared limited in regards to recent and remote memory. He was alert and oriented times person and place month and year but not date. Insight was fair. judgment was limited. His impulse control appeared limited. Vitals/I&O/Wt Last Vital Signs Temp 97.6 F 06/22/23 20:32 Pulse 97 06/23/23 06:00 Resp 18 06/23/23 06:00 BP 155/101 06/23/23 06:00 Pulse Ox 97 06/23/23 06:00 O2 Del Method Room Air 06/23/23 06:00 Data NPU 06/01/23 04:10 06/03/23 09:55 A&P Assessment and plan (1) Dementia: (2) Benign positional vertigo: (3) Acute kidney injury superimposed on CKD: (4) Hypertensive urgency: (5) Homicidal thoughts: (6) Acute psychosis: (7) Altered mental status: Plan This is a 58-year-old male, who denies any history of mental health or addiction issues who presents on a 96-hour hold with reports of odd behavior but patient denies any aggressive or agitated behavior. 1. Continue current medications for multiple medical issues. 2. MARIANO functioning suggests that patient requires 24 hour supervision.-not safe to return home to live independently. Will repeat Mariano on hunch that possibly what happened was a prodromal period prior to his cardiac arrest which might have led to his behavior. 3. Resume every 15 minute checks for safety. 4. Encourage individual, group and milieu therapy. 5. Seeking fdc placement or ACF. Involuntary Hold Information 96 Hour Hold: 96 Hour Involuntary Admission: Yes 96 Hour Hold Ending Date: 05/31/23 96 Hour Hold Ending Time: 17:28 Attestations NPU Medical Necessity Statement*: Inpatient hospitalization is medically necessary and the clinically appropriate intervention at this time. We will monitor medications and make changes as indicated. His likely length of stay is 4-6 days. Await repeat Mariano. Likely going to discharge with increased outpatient supports. Coding Level of Care Code Acute Code for [facility] Fwd Diagnoses Dementia F03.90 Benign positional vertigo H81.10 Acute kidney injury superimposed on CKD N17.9; N18.9 Hypertensive urgency I16.0 Homicidal thoughts R45.850 Acute psychosis F23 Altered mental status R41.82
[2023-06-23 14:00] VITALS: BP 150/85; PULSE 70; RESP 16; TEMP 36.4; O2SAT 99
[2023-06-23] MEDS: clopidogrel 75 mg Tablet PO (15:13)
[2023-06-23 20:06] VITALS: BP 159/85; PULSE 85; RESP 18; TEMP 37; O2SAT 98
[2023-06-23] MEDS: atorvastatin 40 mg Tablet PO (20:07)
[2023-06-23] MEDS: trazodone 50 mg Tablet PO (20:08)
[2023-06-24 06:00] VITALS: BP 158/105; PULSE 73; RESP 18; TEMP 36.7; O2SAT 98
[2023-06-24] MEDS: isosorbide mononitrate ER 30 mg Tablet PO (07:46)
[2023-06-24] MEDS: tamsulosin 0.4 mg Capsule PO (07:46)
[2023-06-24] MEDS: chlorthalidone 25 mg Tablet PO (07:46)
[2023-06-24] MEDS: amlodipine 5 mg Tablet PO ×2 (07:46→08:51)
[2023-06-24] MEDS: carvedilol 3.125 mg Tablet PO ×2 (07:46→15:59)
--- NOTE | 2023-06-24 08:07 | ECG_ITS ---
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 Measurements Intervals Lucas Rate: 60 P: 61 OK: 147 QRS: 32 QRSD: 109 T: 83 QT: 426 QTc: 426 Interpretive Statements SINUS RHYTHM LEFT VENTRICULAR HYPERTROPHY AND ST-T CHANGE [VOLTAGE CRITERIA PLUS ST/T ABNORMALITY] Compared to ECG 05/29/2023 13:26:24 Left ventricular hypertrophy now present ST (T wave) deviation now present T-wave abnormality no longer present Possible ischemia no longer present Electronically Signed On 06-24-2023 9:24:07 CDT by Prashant Pitts M.D. [id number]
[2023-06-24 08:18] LABS: Basophils # 0.1 10^3/uL (0.0-0.1); Basophils % 0.8 %; Eosinophils # 0.5 10^3/uL (0.0-0.8); Eosinophils % 7.9 %; Hematocrit 35.1 % (42.0-52.0); Hemoglobin 11.3 g/dL (11.7-16.6); Lymphocytes # 1.5 10^3/uL (0.8-4.8); Mean Corpuscular HGB Conc 32.2 g/dL (30.0-36.0); Mean Corpuscular Hemoglobin 28.9 pg (28.0-34.0); Mean Corpuscular Volume 89.8 fl (80-94); Mean Platelet Volume 9.8 fL (7.4-10.4); Monocytes # 0.6 10^3/uL (0.2-0.9); Monocytes % 8.6 %; Neutrophils # 3.76 10^3/uL (1.8-7.7); Neutrophils % 59.1 %; Nucleated Red Blood Cells % 0 %; Platelet Count 261 10^3/cmm (130-400); Red Blood Count 3.91 10^6/uL (4.1-5.3); Red Cell Distribution Width 14.1 % (12.1-15.1); White Blood Count 6.4 10^3/uL (4.0-10.0)
--- NOTE | 2023-06-24 08:36 | PM.PN ---
Subjective Subjective: History and physical, and hospital course was reviewed. Rapid was response was called regarding the patient being dizzy, and having chest discomfort. When I responded to this, nurses were already at bedside. Patient reported that when he got up to make his bed he felt dizzy, and eventually had some chest pressure. Blood pressure was noted to be significantly elevated. Nursing relates they have already given him his medicines including Norvasc this morning. Patient reports the chest discomfort is nonradiating, not associated with any other symptoms such as shortness of breath or nausea. He reports it is similar to the discomfort he had prior to his angiogram that was performed May 31. This demonstrated mid LAD lesion of 50 to 60% that was not significant on IFR. By the end of my interview with him he reported he was less anxious, and did not have any discomfort. Medications: Reviewed: Yes Vitals/I&O/Wt Last Vital Signs Temp 98.0 F 06/24/23 06:00 Pulse 73 06/24/23 06:00 Resp 18 06/24/23 06:00 BP 158/105 06/24/23 06:00 Pulse Ox 98 06/24/23 06:00 O2 Del Method Room Air 06/24/23 06:00 Physical Exam Narrative: General exam is a white male, who does not appear to be in any discomfort Neck is supple Cardiovascular regular rate and rhythm without murmur Lungs clear Abdomen is soft with positive bowel sounds Extremities no cyanosis clubbing or edema Data 06/24/23 08:05 06/03/23 09:55 Other Labs: EKG demonstrated sinus rhythm, normal axis, nonspecific ST-T wave changes. Question LVH per my read Previous echo on May 25 demonstrated grade 3 diastolic dysfunction, normal EF, LVH I have ordered a CBC and BMP A&P Assessment and plan (1) Chest pain: This may be related to his markedly elevated blood pressure, or perhaps anxiety. There is no evidence of ST elevation on his EKG, and he has had a recent angiogram that did not demonstrate any flow-limiting lesion. Continue statin, Imdur, beta-sami, Plavix CBC and BMP have been ordered (2) Hypertension: Blood pressure has been trending up the last several days Increase Norvasc to 10 mg daily Additional 5 mg p.o. today Will continue to follow to adjust blood pressure medication as needed. Plan Chronic kidney disease. Await BMP Other medical problems as noted in past medical history Attestations Medical Necessity Statement*: As per primary Diagnoses Chest pain R07.9 Hypertension I10 Time Spent (min) 31
[2023-06-24 08:40] LABS: Anion Gap 15.1 (5-19); Blood Urea Nitrogen 42 mg/dL (6-20); Calcium 9.6 mg/dL (8.5-10.5); Carbon Dioxide 30 mmol/L (22-29); Chloride 100 mmol/L (98-107); Glomerular Filtration Rate 41.5 mL/min (90-130); Glucose 77 mg/dL (65-115); Osmolality Calculated 301 mOsm/kg (285-295); Potassium 4.1 mmol/L (3.5-5.1); Sodium 141 mmol/L (136-145)
[2023-06-24 14:00] VITALS: BP 151/90; PULSE 83; RESP 16; TEMP 36.7; O2SAT 98
[2023-06-24] MEDS: clopidogrel 75 mg Tablet PO (15:59)
--- NOTE | 2023-06-24 17:02 | P.NPUPN_ITS ---
Subjective NPU Subjective: Patient presented today reporting that he is feeling better than this morning. This morning there was a rapid response secondary to him having an extremely high blood pressure of 225/120-maia. The hospitalist team is reexploring his blood pressure medications and increased them. We discussed working on a safe discharge plan for the next several days/hopefully at the beginning of the week per his continued improvement to have him go to independent living with increased supports. Mental Status Exam MSE Comments: This is an underweight white male, in hospital scrubs, with good grooming and fair eye contact. No abnormal movements except for mild psychomotor slowing. He was cooperative with exam in no acute distress. Speech was normal in rate and volume with normal spontaneous speech noted. There were continued difficulties with word finding noted. Mood described as all right. His affect was pleasant and mood-congruent. Thought process was linear and mostly organized. Thought content: patient denied any current suicidal or homicidal ideation, there were no delusions reported or noted, patient denied auditory or visual hallucinations. He did not appear to be responding to internal stimuli. Attention and concentration appeared intact, and memory appeared limited in regards to recent and remote memory. He was alert and oriented times person and place month and year but not date. Insight was fair. judgment was limited. His impulse control appeared limited. Vitals/I&O/Wt Last Vital Signs Temp 98.1 F 06/24/23 20:50 Pulse 87 06/24/23 20:50 Resp 18 06/24/23 20:50 BP 148/94 06/24/23 20:50 Pulse Ox 96 06/24/23 20:50 O2 Del Method Room Air 06/24/23 20:50 Data NPU 06/24/23 08:05 06/24/23 08:05 A&P Assessment and plan (1) Dementia: (2) Benign positional vertigo: (3) Acute kidney injury superimposed on CKD: (4) Hypertensive urgency: (5) Homicidal thoughts: (6) Acute psychosis: (7) Altered mental status: Plan This is a 58-year-old male, who denies any history of mental health or addiction issues who presents on a 96-hour hold with reports of odd behavior but patient denies any aggressive or agitated behavior. 1. Continue current medications for multiple medical issues. 2. Improved functioning per repeat Mariano. What happened was a likely a prodromal period prior to his cardiac arrest which might have led to his behavior. 3. Resume every 15 minute checks for safety. 4. Encourage individual, group and milieu therapy. 5. Plan for discharge with increased supports per improved [facility] Involuntary Hold Information 96 Hour Hold: 96 Hour Involuntary Admission: Yes 96 Hour Hold Ending Date: 05/31/23 96 Hour Hold Ending Time: 17:28 Attestations NPU Medical Necessity Statement*: Inpatient hospitalization is medically necessary and the clinically appropriate intervention at this time. We will monitor medications and make changes as indicated. His likely length of stay is 3-5 days. Likely going to discharge to home with increased outpatient supports. Coding Level of Care Code Acute Code for [facility] Fwd Diagnoses Dementia F03.90 Benign positional vertigo H81.10 Acute kidney injury superimposed on CKD N17.9; N18.9 Hypertensive urgency I16.0 Homicidal thoughts R45.850 Acute psychosis F23 Altered mental status R41.82
[2023-06-24] MEDS: atorvastatin 40 mg Tablet PO (20:25)
[2023-06-24] MEDS: trazodone 50 mg Tablet PO (20:25)
[2023-06-24 20:50] VITALS: BP 148/94; PULSE 87; RESP 18; TEMP 36.7; O2SAT 96
[2023-06-25 03:24] VITALS: BP 142/96
[2023-06-25 06:00] VITALS: BP 152/87; PULSE 80; RESP 18; O2SAT 97
--- NOTE | 2023-06-25 08:03 | W.PM.NPUPNS ---
Subjective NPU Subjective: Patient presented today reporting that he is happy to hear that were going to discharge him soon and he looks forward to that happening. He reports that he is feeling a little better physically and appreciates the hospitalist following his medications and helping him feel less anxious about what might be happening with him from a cardiac standpoint. We discussed the plan to work with the social work team on Tuesday to try to expedite his discharge this week. Mental Status Exam MSE Comments: This is an underweight white male, in hospital scrubs, with good grooming and fair eye contact. No abnormal movements except for mild psychomotor slowing. He was cooperative with exam in no acute distress. Speech was normal in rate and volume with normal spontaneous speech noted. There were continued difficulties with word finding noted. Mood described as okay, ready to get out of here. His affect was pleasant and mood-congruent. Thought process was linear and mostly organized. Thought content: patient denied any current suicidal or homicidal ideation, there were no delusions reported or noted, patient denied auditory or visual hallucinations. He did not appear to be responding to internal stimuli. Attention and concentration appeared intact, and memory appeared limited in regards to recent and remote memory. He was alert and oriented times person and place month and year but not date. Insight was fair. judgment was limited. His impulse control appeared limited. Vitals/I&O/Wt Last Vital Signs Temp 98.1 F 06/24/23 20:50 Pulse 80 06/25/23 06:00 Resp 18 06/25/23 06:00 BP 152/87 06/25/23 06:00 Pulse Ox 97 06/25/23 06:00 O2 Del Method Room Air 06/25/23 06:00 Data NPU 06/24/23 08:05 06/24/23 08:05 A&P Assessment and plan (1) Dementia: (2) Benign positional vertigo: (3) Acute kidney injury superimposed on CKD: (4) Hypertensive urgency: (5) Homicidal thoughts: (6) Acute psychosis: (7) Altered mental status: Plan This is a 58-year-old male, who denies any history of mental health or addiction issues who presents on a 96-hour hold with reports of odd behavior but patient denies any aggressive or agitated behavior. 1. Continue current medications for multiple medical issues. 2. Improved functioning per repeat Mariano. What happened was a likely a prodromal period prior to his cardiac arrest which might have led to his behavior. 3. Resume every 15 minute checks for safety. 4. Encourage individual, group and milieu therapy. 5. Plan for discharge with increased supports per improved Mariano 6. Appreciate continue hospitalist involvement and will follow recommendations as indicated. Involuntary Hold Information 96 Hour Hold: 96 Hour Involuntary Admission: Yes 96 Hour Hold Ending Date: 05/31/23 96 Hour Hold Ending Time: 17:28 Attestations NPU Medical Necessity Statement*: Inpatient hospitalization is medically necessary and the clinically appropriate intervention at this time. We will monitor medications and make changes as indicated. His likely length of stay is 3-5 days. Likely going to discharge to home with increased outpatient supports. Coding Level of Care Code Acute Code for [facility] Diagnoses Dementia F03.90 Benign positional vertigo H81.10 Acute kidney injury superimposed on CKD N17.9; N18.9 Hypertensive urgency I16.0 Homicidal thoughts R45.850 Acute psychosis F23 Altered mental status R41.82
[2023-06-25] MEDS: amlodipine 5 mg Tablet 10 MG PO (08:37)
[2023-06-25] MEDS: tamsulosin 0.4 mg Capsule PO (08:37)
[2023-06-25] MEDS: isosorbide mononitrate ER 30 mg Tablet PO (08:37)
[2023-06-25] MEDS: carvedilol 3.125 mg Tablet PO ×2 (08:37→16:19)
[2023-06-25] MEDS: chlorthalidone 25 mg Tablet PO (08:37)
--- NOTE | 2023-06-25 09:31 | PC.NURSE ---
Patient denies all during morning assessment. Patient has been pacing the hallway. Patient will come up to the window and say that he forgot that he came up to the window for. Patient has done this a few times this morning.
[2023-06-25] MEDS: spironolactone 25 mg Tablet 12.5 MG PO (11:30)
[2023-06-25] MEDS: alum-mag-hydroxide-sime 30 mL UDC PO (13:16)
[2023-06-25 14:00] VITALS: BP 131/66; PULSE 66; RESP 20; TEMP 36.7; O2SAT 98
[2023-06-25] MEDS: clopidogrel 75 mg Tablet PO (16:19)
--- NOTE | 2023-06-25 16:38 | PM.PN ---
Subjective Subjective: Patient was seen this morning he is ambulating in MPU, no chest pain, no lightheadedness, dizziness Vitals/I&O/Wt Last Vital Signs Temp 98.1 F 06/24/23 20:50 Pulse 80 06/25/23 06:00 Resp 18 06/25/23 06:00 BP 152/87 06/25/23 06:00 Pulse Ox 97 06/25/23 06:00 O2 Del Method Room Air 06/25/23 06:00 06/25/23 06/25/23 06/25/23 06:59 14:59 22:59 Intake Total 0 / 0 Output Total 600 / 600 Balance -600 / -600 Physical Exam Const: COMMON NORMALS: no acute distress and patient oriented x3 Resp: COMMON NORMALS: normal respiratory effort, No retractions, No use of accessory muscles and clear to auscultation bilaterally AUSCULTATION: clear to auscultation bilaterally Cardio: COMMON NORMALS: regular rate, regular rhythm, S1 normal heart sound present and S2 normal heart sound present RATE: regular rate RHYTHM: regular rhythm HEART SOUNDS: S1 normal heart sound present and S2 normal heart sound present GI: COMMON NORMALS: Normal to inspection, nondistended, normoactive bowel sounds present and non-tender Extremity: COMMON NORMALS: no pedal edema Neuro: COMMON NORMALS: patient oriented x3 Psych: COMMON NORMALS: mental status grossly normal Data 06/24/23 08:05 06/24/23 08:05 A&P Assessment and plan (1) Dementia: (2) Benign positional vertigo: (3) Acute kidney injury superimposed on CKD: (4) Hypertensive urgency: (5) Homicidal thoughts: (6) Acute psychosis: (7) Altered mental status: Plan Continue blood pressure medications as spironolactone 12.5 mg once daily monitor for lightheadedness monitor for chest pain, follow-up blood pressures Attestations Medical Necessity Statement*: Patient requires hospitalization due to hypertension Diagnoses Dementia F03.90 Benign positional vertigo H81.10 Acute kidney injury superimposed on CKD N17.9; N18.9 Hypertensive urgency I16.0 Homicidal thoughts R45.850 Acute psychosis F23 Altered mental status R41.82
[2023-06-25] MEDS: atorvastatin 40 mg Tablet PO (20:00)
[2023-06-25] MEDS: trazodone 50 mg Tablet PO (20:00)
[2023-06-25 20:20] VITALS: BP 150/85; PULSE 84; RESP 16; TEMP 36.6; O2SAT 98
[2023-06-26] MEDS: OLANZapine 5 mg ODT PO (05:19)
--- NOTE | 2023-06-26 05:20 | PC.NURSE ---
PT CAME TO NURSES DESK C/O INCREASED ANXIETY. ZYPREXA 5MG SL GIVEN.
[2023-06-26 06:00] VITALS: BP 165/94; PULSE 69; RESP 18; TEMP 36.7; O2SAT 99
[2023-06-26] MEDS: chlorthalidone 25 mg Tablet PO (07:37)
[2023-06-26] MEDS: amlodipine 5 mg Tablet 10 MG PO (07:41)
[2023-06-26] MEDS: carvedilol 3.125 mg Tablet PO ×2 (07:41→16:42)
[2023-06-26] MEDS: isosorbide mononitrate ER 30 mg Tablet PO (07:41)
[2023-06-26] MEDS: spironolactone 25 mg Tablet 12.5 MG PO (07:41)
[2023-06-26] MEDS: tamsulosin 0.4 mg Capsule PO (07:41)
--- NOTE | 2023-06-26 08:56 | PC.NURSE ---
At around 0745, patient stated that he had a headache. He stated that it felt like his heart was about to stop and that he felt shaky inside. This nurse checked his VS: BP; 19/103, 100%RA, RR16, HR 67. This nurse notified Dr. Kirkpatrick who told me to give all of his BP medications early and to recheck his VS in an hour. This nurse rechecked patient's VS at 0849. BP: 135/79, 98% RA, HR 66BPM, RR 16. Patient resting in bed, calm. No distress. Dr. Kirkpatrick notified of VS. Told to notify him if patient feels lightheaded. Dr. Kirkpatrick stated that it can be difficult to find the right balance of BP medications.
--- NOTE | 2023-06-26 09:00 | PC.NURSE ---
During morning assessment, patient stated that he was upset because he had chest pain this morning and the staff took too long to check his VS. Per patient, it took 2-3 minutes for somebody to check them. Patient denies anxiety, depression, SI, HI, AVh.
--- NOTE | 2023-06-26 11:59 | PC.NURSE ---
Patient at nurses station reporting dizziness that starts at the back of his head and moves to the front of his head. Patient also reports right eye vision going black, and that he feels like he is going to go over . Patient Bp checked: 163/86, HR 80. O2: 97% RA. Dr. Kirkpatrick notified. Dr. Kirkpatrick said to check on patient's BP every hour. He said that he is aware that patient has been having vision issues in his right eye.
--- NOTE | 2023-06-26 13:57 | CTR_ITS ---
PROCEDURE INFORMATION: Exam: CT Head Without Contrast Exam date and time: 06/26/2023 2:30 PM Age: 58 years old Clinical indication: Dizziness and other: Right eye visual defect TECHNIQUE: Imaging protocol: Computed tomography of the head without contrast. Radiation optimization: All CT scans at this facility use at least one of these dose optimization techniques: automated exposure control; mA and/or kV adjustment per patient size (includes targeted exams where dose is matched to clinical indication); or iterative reconstruction. REPORTING DATA: Count of CT and Cardiac NM exams in prior 12 months: This patient has received 3 known CTs and 0 known cardiac nuclear medicine studies in the 12 months prior to the current study. COMPARISON: CT head wo con* [id number] 05/27/2023 4:28 PM RADIATION DOSE METRICS: Total DLP (mGy-cm): 937.48 FINDINGS: Brain: There is diffuse cerebral atrophy and chronic microvascular white matter disease. The basal cisterns are unremarkable. There is a focal hypodensity in the right thalamus suggesting a chronic lacunar infarct. There is a focal hypodensity in the right caudate nucleus (involving the distal body) suggesting a chronic lacunar infarct. There is no acute intracranial hemorrhage. Cerebral ventricles: There is mild ex vacuo dilation of the lateral ventricles. Paranasal sinuses: The paranasal sinuses are clear. Mastoid air cells: The mastoid air cells are clear. Bones/joints: The calvarium is intact. Soft tissues: The visible extracranial soft tissues are unremarkable. CT/CT head wo con* [id number] IMPRESSION: 1. No acute intracranial abnormality. No change since 05/27/2023. 2. Chronic infarcts in right thalamus and right caudate body.
[2023-06-26 13:58] VITALS: BP 165/94; PULSE 69; RESP 18; TEMP 36.7
--- NOTE | 2023-06-26 13:58 | P.PN_ITS ---
Subjective Subjective: Patient was seen this morning, early this morning, his blood pressures were in the 190s over 80s, he was given all his blood pressure medications, early in that morning, he was complaining of lightheadedness, his blood pressures were in the 160s over 80s, no complaints of chest pain no complaints of palpitations, he has chronic complaints of right eye blurriness, he started to complain of more episodes of right eye blurriness, central vision visual deficits, was examined at roughly 130pm, he is alert oriented x3, following all commands, he is actually ambulating around the neuropsychiatric unit, no facial droop, no slurring of his words, no focal neurologic deficits, his NIH stroke scale is 0, pupils equal round reactive to light, is able to track, no nystagmus, he is buajao-hb-bffm mildly positive bilaterally, his htvq-go-fsmh is abnormal, does have mild positive cerebellar signs with xsth-[id number], in terms of his visual sanches, I am able to do full visual field testing, which is intact bilaterally, he seems to complain of a central visual field deficits, but on visual field ludwin ting I am not able to ascertain it, able to distinguish colors, able to distinguish my number fingers, I also had him read a NIH stroke paper that the nurse had a, and is able to read it using his right eye track of her right to left, read it from right to left, I will order CT of his head, he will potentially require MRI of the brain based on his CT of his head finding, and might require ophthalmology evaluation potentially as inpatient we will see how he does, he is on Plavix he is on a statin, currently normotensive, cardiovascular S1, S2, regular rate and rhythm, will monitor closely he tells me that he has chronic right eye blurriness but it is more significant now and more of the central visual deficit Vitals/I&O/Wt Last Vital Signs Temp 98.0 F 06/26/23 06:00 Pulse 69 06/26/23 06:00 Resp 18 06/26/23 06:00 BP 165/94 06/26/23 06:00 Pulse Ox 99 06/26/23 06:00 O2 Del Method Room Air 06/26/23 06:00 06/25/23 06/26/23 06/26/23 22:59 06:59 14:59 Intake Total 0 / 0 Output Total 600 / 600 Balance -600 / -600 Weight last 48 hrs Weight 68.765 kg Physical Exam Const: COMMON NORMALS: no acute distress and patient oriented x3 HENMT: COMMON NORMALS: normocephalic HEAD & SCALP: normocephalic Neck/C-Spine: COMMON NORMALS: no JVD Resp: COMMON NORMALS: normal respiratory effort, No retractions, No use of accessory muscles and clear to auscultation bilaterally AUSCULTATION: clear to auscultation bilaterally Cardio: COMMON NORMALS: no JVD, regular rate, regular rhythm, S1 normal heart sound present and S2 normal heart sound present RATE: regular rate RHYTHM: regular rhythm HEART SOUNDS: S1 normal heart sound present and S2 normal heart sound present GI: COMMON NORMALS: Normal to inspection, nondistended, normoactive bowel sounds present, Soft to palpation, non-tender, No hepatosplenomegaly present, no masses and no bruits PALPATION: Yes Soft to palpation and Yes No hepatosplenomegaly present Extremity: COMMON NORMALS: capillary refill normal, no clubbing, cyanosis or edema, no calf tenderness and no pedal edema Neuro: COMMON NORMALS: patient oriented x3, CN's II-XII intact bilaterally, moves all extremities, no focal motor deficits and no sensory deficits noted Psych: COMMON NORMALS: mental status grossly normal Data 06/24/23 08:05 06/24/23 08:05 A&P Assessment and plan (1) Hypertensive urgency: (2) Acute psychosis: (3) NSTEMI (non-ST elevated myocardial infarction): (4) Acute kidney injury superimposed on CKD: (5) LVH (left ventricular hypertrophy): (6) Multiple lacunar infarcts: (7) Benign positional vertigo: (8) Blurry vision, right eye: (9) Chest pain: (10) Abnormal nuclear stress test: (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: Plan Hypertensive urgency - CT of the head, multiple lacunar infarcts, repeat head CT no acute findings, carotid artery Doppler ultrasound no significant stenosis, needs blood pressure monitoring, start Plavix, and atorvastatin -For his blurry vision I will repeat his head CT, will consider MRI of the brain, consider inpatient ophthalmology evaluation -Likely benign positional vertigo, monitor -NSTEMI, likely cardiac stress, likely type II from hypertension however cannot rule out underlying cardiac etiology needs to follow-up with cardiology on discharge, monitor -Cardiac echo shows LVH, needs to follow-up with cardiology -Continue Coreg 3.25 twice daily -Decrease Norvasc to 10 mg once daily - Imdur to 30 mg once daily -Continue chlorthalidone 25 mg once daily -Spironolactone 12.5 mg -Watch blood pressures closely Blurry vision, right eye, work-up as above Positive cerebellar signs, guilhz-gy-jjjl, fwze-di-gasp, complaints of dizziness, CT of the head, NIH stroke scale, neurochecks Will order MRI of the brain tomorrow, consider ophthalmology evaluation, will order blood work, EKG, INR -He might require event monitor on discharge -Complains of left-sided chest pain, baseline troponin 25, EKG showing ST depressions in the lateral leads, complaints of recurrent chest pain -Continue Plavix, statin, nitro as needed Cardiac stress test -1.? Myocardial perfusion imaging revealing moderate area of minimal to ?moderately decreased tracer uptake involving the inferior, inferolateral, ?anterolateral and apical lateral regions with Significant with reversibility ?suggesting ischemia in the distribution of the left circumflex artery and right ?coronary artery. ?2.? Slightly diminished left ventricular ejection fraction of 49%. ?3.? LV wall motion analysis revealing moderate diffuse hypokinesia of the ?septum. ?4.? Mildly dilated LV cavity with an end-systolic volume of 76 ml. ?No similar previous studies are available for comparison -Cardiology consulted -Coronary angiography LAD shows 50% lesion, risk factor modification -No recurrent chest pain -Full code Attestations Medical Necessity Statement*: Patient requires hospitalization for complaints of acute on chronic right eye blurry vision, positive cerebellar signs, dizziness, requiring head CT, neurochecks, NIH stroke scale, MRI of the brain tomorrow Diagnoses Hypertensive urgency I16.0 Acute psychosis F23 NSTEMI (non-ST elevated myocardial infarction) I21.4 Acute kidney injury superimposed on CKD N17.9; N18.9 LVH (left ventricular hypertrophy) I51.7 Multiple lacunar infarcts I63.81 Benign positional vertigo H81.10 Blurry vision, right eye H53.8 Chest pain R07.9 Abnormal nuclear stress test R94.39 Cerebellar ataxia G11.9
[2023-06-26 14:00] VITALS: BP 142/78; PULSE 67; RESP 20; TEMP 37.1; O2SAT 99
[2023-06-26 14:06] VITALS: BP 165/94; PULSE 69; RESP 18; TEMP 36.7
--- NOTE | 2023-06-26 14:06 | MRR_ITS ---
PROCEDURE INFORMATION: Exam: MR Head Without Contrast Exam date and time: 06/26/2023 2:39 PM Age: 58 years old Clinical indication: Dizziness and visual disturbance; Additional info: Right eye blurry vision, cerbellar signs, hypertension TECHNIQUE: Imaging protocol: Magnetic resonance imaging of the head without contrast. COMPARISON: CT head wo con* [id number] 06/26/2023 2:30 PM FINDINGS: Brain: There are T2/flair hyperintensities in the periventricular and subcortical white matter consistent with chronic microvascular disease. There is no significant mass effect or midline shift. There is no acute intracranial hemorrhage. There is mild diffuse cerebral atrophy. The basal cisterns are unremarkable. There is a 6 mm fluid signal intensity focus in the right park radiata at the distal margin of the caudate body. A similar 5 mm lesion is seen in the right frontal lobe white matter. There is an ill-defined high T2 signal intensity/low T1 and FLAIR signal intensity 13 x 8 mm focus in the right thalamus. There are numerous small round foci of magnetic susceptibility artifact in the bilateral thalami, cerebellum, and to a lesser extent in the supratentorial white matter. There is no diffusion restriction. Cerebral ventricles: There is mild ex vacuo dilation of the lateral ventricles. Bones/joints: The skull is unremarkable. Paranasal sinuses: The paranasal sinuses are clear. Mastoid air cells: No mastoid effusion. Orbital cavities: The orbits are unremarkable. Soft tissues: The visible extracranial soft tissues are unremarkable. MR/MR head wo con* [id number] IMPRESSION: 1. Multifocal magnetic susceptibility artifact predominantly involving thalami, cerebellum and brainstem with supratentorial white matter involvement to a lesser extent. Findings are consistent with multifocal punctate chronic microhemorrhage and are typical of chronic hypertensive encephalopathy. Differential diagnosis includes CADASIL, Alzheimer's disease, antiphospholipid antibody syndrome, neuropsychiatric systemic lupus erythematosus, and other vasculitides. 2. Extensive white matter disease is nonspecific but is consistent with chronic hypertensive encephalopathy. 3. Chronic lacunar infarcts in the park radiata and right thalamus. No sign of acute infarction.
--- NOTE | 2023-06-26 15:40 | ECG_ITS ---
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 Measurements Intervals [place] Rate: 59 P: 73 [place]: 149 QRS: 33 QRSD: 103 T: 105 QT: 416 QTc: 413 Interpretive Statements SINUS BRADYCARDIA VOLTAGE CRITERIA FOR LVH [MEETS CRITERIA IN ONE OF: R(aVL), S(V1), R(V5), R(V5/V6)+S(V1)] NONSPECIFIC T-WAVE ABNORMALITY Compared to ECG 06/24/2023 08:07:39 T-wave abnormality now present Sinus rhythm no longer present ST (T wave) deviation no longer present Electronically Signed On 06-26-2023 18:25:10 CDT by Joshua Lin M.D. [email or web address].[employer]/store/[id number]
[2023-06-26 16:00] VITALS: BP 149/84; PULSE 71; RESP 16; TEMP 36.7
[2023-06-26] MEDS: clopidogrel 75 mg Tablet PO (16:42)
--- NOTE | 2023-06-26 16:55 | P.NPUPN_ITS ---
Subjective NPU Subjective: Patient presented today in significant distress and appearing irritated/irritable. He reports that he had a heart attack this morning and that the staff did not help him. When asked how he knows he had a heart attack he got very angry and stormed out of the room and said that he needed to get the fuck out of here. He did not want to reengage after the conversation. Mental Status Exam MSE Comments: This is an underweight white male, in hospital scrubs, with good grooming and fair eye contact. No abnormal movements except for mild psychomotor slowing. He was less cooperative with exam in moderate distress. Speech was normal in rate and volume with normal spontaneous speech noted. There were no difficulties with word finding noted. Mood described as upset, need to get the fuck out of here. His affect was irritable and agitated. Thought process was linear and mostly organized. Thought content: patient denied any current suicidal or homicidal ideation, there were no delusions reported or noted, patient denied auditory or visual hallucinations. He did not appear to be responding to internal stimuli. Attention and concentration appeared intact, and memory appeared limited in regards to recent and remote memory. He was alert and oriented times person and place month and year but not date. Insight was fair. judgment was limited. His impulse control appeared limited. Vitals/I&O/Wt Last Vital Signs Temp 98.8 F 06/26/23 14:00 Pulse 67 06/26/23 14:00 Resp 20 H 06/26/23 14:00 BP 142/78 06/26/23 14:00 Pulse Ox 99 06/26/23 14:00 O2 Del Method Room Air 06/26/23 14:00 06/26/23 06/26/23 06/27/23 14:59 22:59 06:59 Intake Total 0 / 0 Output Total 1200 / 1200 Balance -1200 / -1200 Weight last 48 hrs Weight 68.765 kg Data NPU 06/26/23 18:37 06/26/23 18:37 A&P Assessment and plan (1) Dementia: (2) Benign positional vertigo: (3) Acute kidney injury superimposed on CKD: (4) Hypertensive urgency: (5) Homicidal thoughts: (6) Acute psychosis: (7) Altered mental status: Plan This is a 58-year-old male, who denies any history of mental health or addiction issues who presents on a 96-hour hold with reports of odd behavior but patient denies any aggressive or agitated behavior. 1. Continue current medications for multiple medical issues. 2. Improved functioning per repeat Mariano. What happened was a likely a prodromal period prior to his cardiac arrest which might have led to his behavior. 3. Resume every 15 minute checks for safety. 4. Encourage individual, group and milieu therapy. 5. Plan for discharge with increased supports per improved Mariano 6. Appreciate continue hospitalist involvement and will follow recommendations as indicated. Involuntary Hold Information 96 Hour Hold: 96 Hour Involuntary Admission: Yes 96 Hour Hold Ending Date: 05/31/23 96 Hour Hold Ending Time: 17:28 Attestations NPU Medical Necessity Statement*: Inpatient hospitalization is medically necessary and the clinically appropriate intervention at this time. We will monitor medications and make changes as indicated. His likely length of stay is 2-4 days. Likely going to discharge to home with increased outpatient supports. Coding Level of Care Code Acute Code for [facility] Fwd Diagnoses Dementia F03.90 Benign positional vertigo H81.10 Acute kidney injury superimposed on CKD N17.9; N18.9 Hypertensive urgency I16.0 Homicidal thoughts R45.850 Acute psychosis F23 Altered mental status R41.82
[2023-06-26 18:52] LABS: Basophils % 0.3 %; Eosinophils # 0.4 10^3/uL (0.0-0.8); Eosinophils % 7.2 %; Hematocrit 37.7 % (42.0-52.0); Hemoglobin 11.9 g/dL (11.7-16.6); Lymphocytes # 1.4 10^3/uL (0.8-4.8); Lymphocytes % 22.7 %; Mean Corpuscular HGB Conc 31.6 g/dL (30.0-36.0); Mean Corpuscular Hemoglobin 28.9 pg (28.0-34.0); Mean Corpuscular Volume 91.5 fl (80-94); Mean Platelet Volume 9.5 fL (7.4-10.4); Monocytes # 0.4 10^3/uL (0.2-0.9); Monocytes % 6.5 %; Neutrophils # 3.74 10^3/uL (1.8-7.7); Neutrophils % 62.6 %; Nucleated Red Blood Cells % 0 %; Platelet Count 290 10^3/cmm (130-400); Red Blood Count 4.12 10^6/uL (4.1-5.3); Red Cell Distribution Width 14.6 % (12.1-15.1)
[2023-06-26 18:59] LABS: Erythrocyte Sedimentation Rate 10 mm/hr (0-10)
[2023-06-26 19:14] LABS: Anion Gap 16.1 (5-19); Blood Urea Nitrogen 45 mg/dL (6-20); Calcium 9.8 mg/dL (8.5-10.5); Carbon Dioxide 33 mmol/L (22-29); Chloride 98 mmol/L (98-107); Glomerular Filtration Rate 36.5 mL/min (90-130); Glucose 106 mg/dL (65-115); Osmolality Calculated 308 mOsm/kg (285-295); Potassium 4.1 mmol/L (3.5-5.1); Sodium 143 mmol/L (136-145)
[2023-06-26 20:22] VITALS: BP 122/72; PULSE 73; RESP 18; TEMP 36.7; O2SAT 98
[2023-06-26] MEDS: trazodone 50 mg Tablet PO (22:03)
[2023-06-26] MEDS: atorvastatin 40 mg Tablet PO (22:03)
[2023-06-27 06:00] VITALS: BP 146/97; PULSE 74; RESP 18; TEMP 36.6; O2SAT 100
[2023-06-27 08:00] VITALS: BP 161/96; PULSE 66; RESP 18; TEMP 36.6
[2023-06-27] MEDS: chlorthalidone 25 mg Tablet PO (08:24)
[2023-06-27] MEDS: amlodipine 5 mg Tablet 10 MG PO (08:24)
[2023-06-27] MEDS: isosorbide mononitrate ER 30 mg Tablet PO (08:25)
[2023-06-27] MEDS: carvedilol 3.125 mg Tablet PO ×2 (08:25→18:08)
[2023-06-27] MEDS: spironolactone 25 mg Tablet 12.5 MG PO (08:25)
[2023-06-27] MEDS: tamsulosin 0.4 mg Capsule PO (08:25)
[2023-06-27 09:39] LABS: Alanine Aminotransferase 21 U/L (0-41); Albumin Level 4.4 g/dL (3.5-5.2); Alkaline Phosphatase 94 U/L (40-130); Anion Gap 15.2 (5-19); Aspartate Amino Transferase 16 U/L (0-40); Blood Urea Nitrogen 50 mg/dL (6-20); Calcium 9.7 mg/dL (8.5-10.5); Carbon Dioxide 30 mmol/L (22-29); Chloride 101 mmol/L (98-107); Glomerular Filtration Rate 38.8 mL/min (90-130); Glucose 123 mg/dL (65-115); Osmolality Calculated 309 mOsm/kg (285-295); Potassium 4.2 mmol/L (3.5-5.1); Sodium 142 mmol/L (136-145); Total Bilirubin 0.2 mg/dL (0.15-1.2); Total Protein 8.4 g/dL (6.6-8.7)
[2023-06-27 09:42] LABS: Creatinine Clr Calc Pharmacy 44.5663
[2023-06-27] MEDS: alum-mag-hydroxide-sime 30 mL UDC PO (10:57)
[2023-06-27 12:00] VITALS: BP 149/79; PULSE 76; RESP 16; TEMP 36.6
[2023-06-27 14:00] VITALS: BP 143/82; PULSE 76; RESP 16; TEMP 36.7; O2SAT 99
--- NOTE | 2023-06-27 15:09 | P.NPUPN_ITS ---
Subjective NPU Subjective: Patient presented today reporting that he is doing better than yesterday. He reports that he is having some irritability from some hyper energetic individuals on his side of the unit today. He endorsed a plan to try to ignore those individuals. He continues to desire to be discharged and we endorsed working on that process with the social work team. He continues to be managed by hospitalist and continues to have some somatic complaints. Mental Status Exam MSE Comments: This is an underweight white male, in hospital scrubs, with good grooming and fair eye contact. No abnormal movements except for mild psychomotor slowing. He was less cooperative with exam in mild distress. Speech was normal in rate and volume with normal spontaneous speech noted. There were no difficulties with w ord finding noted. Mood described as a little better today. His affect was less irritable and agitated. Thought process was linear and mostly organized. Thought content: patient denied any current suicidal or homicidal ideation, there were no delusions reported or noted, patient denied auditory or visual hallucinations. He did not appear to be responding to internal stimuli. Attention and concentration appeared intact, and memory appeared limited in regards to recent and remote memory. He was alert and oriented times person and place month and year but not date. Insight was fair. judgment was limited. His impulse control appeared limited. Vitals/I&O/Wt Last Vital Signs Temp 98.0 F 06/27/23 14:00 Pulse 76 06/27/23 14:00 Resp 16 06/27/23 14:00 BP 143/82 06/27/23 14:00 Pulse Ox 99 06/27/23 14:00 O2 Del Method Room Air 06/26/23 14:00 Data NPU 06/26/23 18:37 06/27/23 09:05 A&P Assessment and plan (1) Dementia: (2) Benign positional vertigo: (3) Acute kidney injury superimposed on CKD: (4) Hypertensive urgency: (5) Homicidal thoughts: (6) Acute psychosis: (7) Altered mental status: Plan This is a 58-year-old male, who denies any history of mental health or addiction issues who presents on a 96-hour hold with reports of odd behavior but patient denies any aggressive or agitated behavior. 1. Continue current medications for multiple medical issues. 2. Improved functioning per repeat Mariano. What happened was a likely a prodromal period prior to his cardiac arrest which might have led to his behavior. 3. Resume every 15 minute checks for safety. 4. Encourage individual, group and milieu therapy. 5. Plan for discharge with increased supports per improved Mariano 6. Appreciate continue hospitalist involvement and will follow recommendations as indicated. Involuntary Hold Information 96 Hour Hold: 96 Hour Involuntary Admission: Yes 96 Hour Hold Ending Date: 05/31/23 96 Hour Hold Ending Time: 17:28 Attestations NPU Medical Necessity Statement*: Inpatient hospitalization is medically necessary and the clinically appropriate intervention at this time. We will monitor medications and make changes as indicated. His likely length of stay is 2-4 days. Likely going to discharge to home with increased outpatient supports. Coding Level of Care Code Acute Code for [facility] Fwd Diagnoses Dementia F03.90 Benign positional vertigo H81.10 Acute kidney injury superimposed on CKD N17.9; N18.9 Hypertensive urgency I16.0 Homicidal thoughts R45.850 Acute psychosis F23 Altered mental status R41.82
[2023-06-27 16:00] VITALS: BP 156/87; PULSE 66; RESP 16; TEMP 36.7
[2023-06-27] MEDS: clopidogrel 75 mg Tablet PO (18:08)
[2023-06-27] MEDS: trazodone 50 mg Tablet PO (19:39)
[2023-06-27] MEDS: atorvastatin 40 mg Tablet PO (19:39)
[2023-06-27 19:59] VITALS: BP 139/94; PULSE 93; RESP 18; TEMP 36.8; O2SAT 98
--- NOTE | 2023-06-28 01:01 | PC.NURSE ---
pt came out of his room, stood up near the desk window staring across to the other bland. suddenly he pointed to someone saying, i'm going to kill that woman. she's with the [employer]. Then pt walked into the dayroom. pt soon went back to his room.
[2023-06-28 06:00] VITALS: BP 143/90; PULSE 82; RESP 18; TEMP 36.6; O2SAT 98
[2023-06-28 08:00] VITALS: BP 143/90; PULSE 82; RESP 18; TEMP 36.6
[2023-06-28] MEDS: spironolactone 25 mg Tablet 12.5 MG PO (08:16)
[2023-06-28] MEDS: isosorbide mononitrate ER 30 mg Tablet PO (08:16)
[2023-06-28] MEDS: tamsulosin 0.4 mg Capsule PO (08:17)
[2023-06-28] MEDS: carvedilol 3.125 mg Tablet PO ×2 (08:17→14:48)
[2023-06-28] MEDS: chlorthalidone 25 mg Tablet PO (08:17)
[2023-06-28] MEDS: amlodipine 5 mg Tablet 10 MG PO (08:17)
[2023-06-28 12:00] VITALS: BP 143/90; PULSE 82; RESP 18; TEMP 36.6
[2023-06-28 13:55] VITALS: BP 134/82; PULSE 91; RESP 16; TEMP 36.9; O2SAT 96
[2023-06-28] MEDS: clopidogrel 75 mg Tablet PO (14:48)
[2023-06-28 16:00] VITALS: BP 134/82; PULSE 91; RESP 16; TEMP 36.9
--- NOTE | 2023-06-28 18:36 | P.NPUPN_ITS ---
Subjective NPU Subjective: Patient presented today reporting that he was doing fine but still focused on discharge. We were able to discuss a plan for discharge in the next 48 hours as a social work team works to get in-home services in place. He was seen smiling after our conversation which is a new feature as he sees the nausea being here likely coming to an end. We talked about the importance of him managing both his mental health and his other medical comorbidities given concerns that his cardiac health may have affected his presentation. Mental Status Exam MSE Comments: This is an underweight white male, in hospital scrubs, with good grooming and fair eye contact. No abnormal movements except for mild psychomotor slowing. He was less cooperative with exam in mild distress. Speech was normal in rate and volume with normal spontaneous speech noted. There were no difficulties with word finding noted. Mood described as better today. His affect was congruent. Thought process was linear and mostly organized. Thought content: patient denied any current suicidal or homicidal ideation, there were no delusions reported or noted, patient denied auditory or visual hallucinations. He did not appear to be responding to internal stimuli. Attention and concentration appeared intact, and memory appeared limited in regards to recent and remote memory. He was alert and oriented times person and place month and year but not date. Insight was fair. judgment was limited. His impulse control berry eared limited. Vitals/I&O/Wt Last Vital Signs Temp 98.5 F 06/28/23 20:22 Pulse 78 06/28/23 20:22 Resp 17 06/28/23 20:22 BP 136/64 06/28/23 20:22 Pulse Ox 97 06/28/23 20:22 O2 Del Method Room Air 06/28/23 20:22 Data NPU 06/26/23 18:37 06/27/23 09:05 A&P Assessment and plan (1) Dementia: (2) Benign positional vertigo: (3) Acute kidney injury superimposed on CKD: (4) Hypertensive urgency: (5) Homicidal thoughts: (6) Acute psychosis: (7) Altered mental status: Plan This is a 58-year-old male, who denies any history of mental health or addiction issues who presents on a 96-hour hold with reports of odd behavior but patient denies any aggressive or agitated behavior. 1. Continue current medications for multiple medical issues. 2. Improved functioning per repeat Mariano. What happened was a likely a prodromal period prior to his cardiac arrest which might have led to his behavior. 3. Resume every 15 minute checks for safety. 4. Encourage individual, group and milieu therapy. 5. Plan for discharge with increased supports per improved Mariano 6. Appreciate continue hospitalist involvement and will follow recommendations as indicated. Involuntary Hold Information 96 Hour Hold: 96 Hour Involuntary Admission: Yes 96 Hour Hold Ending Date: 05/31/23 96 Hour Hold Ending Time: 17:28 Attestations NPU Medical Necessity Statement*: Inpatient hospitalization is medically necessary and the clinically appropriate intervention at this time. We will monitor medications and make changes as indicated. His likely length of stay is 1-3 days. Likely going to discharge to home with increased outpatient supports. Coding Level of Care Code Acute Code for [facility] Fwd Diagnoses Dementia F03.90 Benign positional vertigo H81.10 Acute kidney injury superimposed on CKD N17.9; N18.9 Hypertensive urgency I16.0 Homicidal thoughts R45.850 Acute psychosis F23 Altered mental status R41.82
[2023-06-28] MEDS: atorvastatin 40 mg Tablet PO (20:20)
[2023-06-28] MEDS: trazodone 50 mg Tablet PO (20:20)
[2023-06-28 20:22] VITALS: BP 136/64; PULSE 78; RESP 17; TEMP 36.9; O2SAT 97
[2023-06-29 06:00] VITALS: BP 136/89; PULSE 88; RESP 18; TEMP 37.1; O2SAT 97
[2023-06-29] MEDS: isosorbide mononitrate ER 30 mg Tablet PO (08:37)
[2023-06-29] MEDS: spironolactone 25 mg Tablet 12.5 MG PO (08:38)
[2023-06-29] MEDS: chlorthalidone 25 mg Tablet PO (08:39)
[2023-06-29] MEDS: carvedilol 3.125 mg Tablet PO ×2 (08:39→15:37)
[2023-06-29] MEDS: tamsulosin 0.4 mg Capsule PO (08:39)
[2023-06-29] MEDS: amlodipine 5 mg Tablet 10 MG PO (08:39)
--- NOTE | 2023-06-29 12:39 | P.NPUPN_ITS ---
Subjective NPU Subjective: Patient presents today reporting that he is feeling considerably better. Much of his relief comes from the imminence of his discharge. He continues to work with the treatment team for appropriate discharge support with plan of this happening hopefully by tomorrow. He denied any new issues and has not had any reports of cardiac challenges in the last day or so. Mental Status Exam MSE Comments: This is an underweight white male, in hospital scrubs, with good grooming and fair eye contact. No abnormal movements except for mild psychomotor slowing. He was less cooperative with exam in mild distress. Speech was normal in rate and volume with normal spontaneous speech noted. There were no difficulties with word finding noted. Mood described as better today. His affect was congruent. Thought process was linear and mostly organized. Thought content: patient denied any current suicidal or homicidal ideation, there were no delusions reported or noted, patient denied auditory or visual hallucinations. He did not appear to be responding to internal stimuli. Attention and concentration appeared intact, and memory appeared limited in regards to recent and remote memory. He was alert and oriented times person and place month and year but not date. Insight was fair. judgment was limited. His impulse control appeared limited. Vitals/I&O/Wt Last Vital Signs Temp 98.8 F 06/29/23 06:00 Pulse 88 06/29/23 06:00 Resp 18 06/29/23 06:00 BP 136/89 06/29/23 06:00 Pulse Ox 97 06/29/23 06:00 O2 Del Method Room Air 06/29/23 06:00 Data NPU 06/26/23 18:37 06/27/23 09:05 A&P Assessment and plan (1) Dementia: (2) Benign positional vertigo: (3) Acute kidney injury superimposed on CKD: (4) Hypertensive urgency: (5) Homicidal thoughts: (6) Acute psychosis: (7) Altered mental status: Plan This is a 58-year-old male, who denies any history of mental health or addiction issues who presents on a 96-hour hold with reports of odd behavior but patient denies any aggressive or agitated behavior. 1. Continue current medications for multiple medical issues. 2. Improved functioning per repeat Mariano. What happened was a likely a prodromal period prior to his cardiac arrest which might have led to his behavior. 3. Resume every 15 minute checks for safety. 4. Encourage individual, group and milieu therapy. 5. Plan for discharge with increased supports per improved Mariano 6. Appreciate continue hospitalist involvement and will follow recommendations as indicated. Involuntary Hold Information 96 Hour Hold: 96 Hour Involuntary Admission: Yes 96 Hour Hold Ending Date: 05/31/23 96 Hour Hold Ending Time: 17:28 Attestations NPU Medical Necessity Statement*: Inpatient hospitalization is medically necessary and the clinically appropriate intervention at this time. We will monitor medications and make changes as in dicated. His likely length of stay is 1-3 days. Likely going to discharge to home with increased outpatient supports. Coding Level of Care Code Acute Code for g Fwd Diagnoses Dementia F03.90 Benign positional vertigo H81.10 Acute kidney injury superimposed on CKD N17.9; N18.9 Hypertensive urgency I16.0 Homicidal thoughts R45.850 Acute psychosis F23 Altered mental status R41.82
[2023-06-29 14:00] VITALS: BP 144/76; PULSE 88; RESP 16; TEMP 36.6; O2SAT 98
[2023-06-29 14:44] LABS: ANA SCREEN, IFA NEGATIVE (NEGATIVE); CENTROMERE B ANTIBODY <1.0 NEG AI (<1.0 NEG); COMPLEMENT COMPONENT C3C 138 mg/dL (82-185); COMPLEMENT COMPONENT C4C 41 mg/dL (15-53); JO-1 ANTIBODY <1.0 NEG AI (<1.0 NEG); RNP ANTIBODY <1.0 NEG AI (<1.0 NEG); SCL-70 ANTIBODY <1.0 NEG AI (<1.0 NEG); SJOGREN'S ANTIBODY (SS-A) <1.0 NEG AI (<1.0 NEG); SM ANTIBODY <1.0 NEG AI (<1.0 NEG); SS-B <1.0 NEG AI (<1.0 NEG)
[2023-06-29 14:45] LABS: THYROID PEROXIDASE ANTIBODIES 1 IU/mL (<9)
[2023-06-29] MEDS: clopidogrel 75 mg Tablet PO (15:37)
[2023-06-29] MEDS: atorvastatin 40 mg Tablet PO (20:03)
--- NOTE | 2023-06-29 21:03 | PC.NURSE ---
pt resting vs not collected per nurse resp 17
[2023-06-30] VITALS (7 sets, daily range): BP systolic 113–159; BP diastolic 51–98; PULSE 62–93; RESP 15–18; TEMP 36.4–37; O2SAT 93–100
[2023-06-30] MEDS: spironolactone 25 mg Tablet 12.5 MG PO (08:10)
[2023-06-30] MEDS: isosorbide mononitrate ER 30 mg Tablet PO (08:11)
[2023-06-30] MEDS: amlodipine 5 mg Tablet 10 MG PO (08:11)
[2023-06-30] MEDS: tamsulosin 0.4 mg Capsule PO (08:11)
[2023-06-30] MEDS: chlorthalidone 25 mg Tablet PO (08:11)
[2023-06-30] MEDS: carvedilol 3.125 mg Tablet PO ×2 (08:14→15:20)
--- NOTE | 2023-06-30 11:29 | DCPLANNER ---
IMM completed on 06/30/23 @ 1128. Pt was given to pt and he stated he understood his rights.
[2023-06-30] MEDS: alum-mag-hydroxide-sime 30 mL UDC PO (12:20)
--- NOTE | 2023-06-30 12:50 | ECG_ITS ---
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 Measurements Intervals [place] Rate: 62 P: 46 ME: 153 QRS: 33 QRSD: 98 T: 94 QT: 393 QTc: 401 Interpretive Statements SINUS RHYTHM NONSPECIFIC T-WAVE ABNORMALITY Compared to ECG 06/30/2023 12:50:28 Possible ischemia no longer present T-wave abnormality still present Electronically Signed On 06-30-2023 15:17:07 CDT by Prashant Pitts M.D. [email or web address].[email or web address]/store/[id number]
--- NOTE | 2023-06-30 14:32 | ECG_ITS ---
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 Measurements Intervals [place] Rate: 66 P: 61 [place]: 149 QRS: 32 QRSD: 101 T: 94 QT: 400 QTc: 422 Interpretive Statements SINUS RHYTHM NONSPECIFIC T-WAVE ABNORMALITY Compared to ECG 06/30/2023 12:51:12 No significant changes Electronically Signed On 06-30-2023 15:16:35 CDT by Prashant Pitts M.D. [id number]
[2023-06-30 15:11] LABS: Troponin(5th) Baseline 17 ng/L (0-15)
[2023-06-30] MEDS: clopidogrel 75 mg Tablet PO (15:20)
[2023-06-30 15:29] LABS: COMPLEMENT, TOTAL (CH50) >60 U/mL (31-60)
--- NOTE | 2023-06-30 15:43 | W.PM.NPUPNS ---
Subjective NPU Subjective: Patient presented today initially reporting readiness for discharge but then came to the nurses station reporting chest pain. An EKG was ordered and evaluated by emergency room doctor without significant changes noted and some labs were drawn which did show some change in troponins and other lab work and so the hospitalist will be engaged for direction on discharge planning and his discharge was put off for consideration tomorrow. Mental Status Exam MSE Comments: This is an underweight white male, in hospital scrubs, with good grooming and fair eye contact. No abnormal movements except for mild psychomotor slowing. He was more cooperative with exam in mild distress. Speech was normal in rate and volume with normal spontaneous speech noted. There were no difficulties with word finding noted. Mood described as better today. His affect was congruent. Thought process was linear and mostly organized. Thought content: patient denied any current suicidal or homicidal ideation, there were no delusions reported or noted, patient denied auditory or visual hallucinations. He did not appear to be responding to internal stimuli. Attention and concentration appeared intact, and memory appeared limited in regards to recent and remote memory. He was alert and oriented times person and place month and year but not date. Insight was fair. judgment was limited. His impulse control appeared limited. Vitals/I&O/Wt Last Vital Signs Temp 98.3 F 06/30/23 20:45 Pulse 78 06/30/23 20:45 Resp 17 06/30/23 20:45 BP 113/51 06/30/23 20:45 Pulse Ox 96 06/30/23 20:45 O2 Del Method Room Air 06/30/23 20:45 Data NPU 06/26/23 18:37 06/27/23 09:05 A&P Assessment and plan (1) Dementia: (2) Benign positional vertigo: (3) Acute kidney injury superimposed on CKD: (4) Hypertensive urgency: (5) Homicidal thoughts: (6) Acute psychosis: (7) Altered mental status: Plan This is a 58-year-old male, who denies any history of mental health or addiction issues who presents on a 96-hour hold with reports of odd behavior but patient denies any aggressive or agitated behavior. 1. Continue current medications for multiple medical issues. 2. Improved functioning per repeat Mariano. What happened was a likely a prodromal period prior to his cardiac arrest which might have led to his behavior. 3. Resume every 15 minute checks for safety. 4. Encourage individual, group and milieu therapy. 5. Plan for discharge with increased supports per improved Mariano. Plan was for discharge today 06/30/2023 but will hold for cardiac assessment. 6. Appreciate continue hospitalist involvement and will follow recommendations as indicated. We will await their evaluation of his current acute chest pain with elevated troponins recommendations on any changes in discharge planning given his symptoms. Involuntary Hold Information 96 Hour Hold: 96 Hour Involuntary Admission: Yes 96 Hour Hold Ending Date: 05/31/23 96 Hour Hold Ending Time: 17:28 Attestations NPU Medical Necessity Statement*: Inpatient hospitalization is medically necessary and the clinically appropriate intervention at this time. We will monitor medications and make changes as indicated. His likely length of stay is 1-2 days. Likely going to discharge to home with increased outpatient supports. Coding Level of Care Code Acute Code for g Fwd Diagnoses Dementia F03.90 Benign positional vertigo H81.10 Acute kidney injury superimposed on CKD N17.9; N18.9 Hypertensive urgency I16.0 Homicidal thoughts R45.850 Acute psychosis F23 Altered mental status R41.82
[2023-06-30 17:31] LABS: Troponin 5 2HR 30.98 ng/L (0-15)
--- NOTE | 2023-06-30 17:45 | PM.PN ---
Subjective Subjective: patient wass seen this afternoon, he had 1 episode of chest pain, radiating to his jaw, he thought it was indigestion, currently chest pain free, His EKG did not show any acute ST-T wave changes, currently chest pain-free, no nausea, vomiting, no diaphoresis, no shortness of breath, his baseline troponins 17, will monitor for now, nitro prn, consider ranexa Vitals/I&O/Wt Last Vital Signs Temp 97.5 F L 06/30/23 13:46 Pulse 71 06/30/23 13:46 Resp 16 06/30/23 13:46 BP 132/75 06/30/23 13:46 Pulse Ox 99 06/30/23 13:46 O2 Del Method Room Air 06/30/23 12:34 Physical Exam Const: COMMON NORMALS: no acute distress and patient oriented x3 Resp: COMMON NORMALS: normal respiratory effort, No retractions, No use of accessory muscles and clear to auscultation bilaterally AUSCULTATION: clear to auscultation bilaterally Cardio: COMMON NORMALS: regular rate, regular rhythm, S1 normal heart sound present and S2 normal heart sound present RATE: regular rate RHYTHM: regular rhythm HEART SOUNDS: S1 normal heart sound present and S2 normal heart sound present GI: COMMON NORMALS: Normal to inspection, nondistended, normoactive bowel sounds present and non-tender Extremity: COMMON NORMALS: no pedal edema Neuro: COMMON NORMALS: patient oriented x3 Psych: COMMON NORMALS: mental status grossly normal Data 06/26/23 18:37 06/27/23 09:05 A&P Assessment and plan (1) Chest pain: Plan cat a few ago shows No disease noted in the Left Main, Right, or Circumflex coronary arteries. ? * Coronary angiography shows co dominance. ? * Mid left anterior descending artery with moderate 50-60 % stenosis. He underwent iFR that was found to be hemodynamically insignificant (1.0). -continue medical management, will consider ranexa Attestations Medical Necessity Statement*: patient needs hospitalization for chest pain Diagnoses Chest pain R07.9
[2023-06-30 17:46] LABS: Troponin 5 2HR Delta 13.98 ABS# (0-10)
[2023-06-30] MEDS: nitroglycerin 0.4 mg sublingual Tablet SUBLINGUAL ×2 (18:00→18:42)
[2023-06-30] MEDS: atorvastatin 40 mg Tablet PO (20:32)
--- NOTE | 2023-06-30 20:32 | ECG_ITS ---
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 Measurements Intervals [place] Rate: 66 P: 66 [place]: 152 QRS: 39 QRSD: 102 T: 92 QT: 399 QTc: 420 Interpretive Statements SINUS RHYTHM NONSPECIFIC T-WAVE ABNORMALITY Compared to ECG 06/30/2023 14:54:32 No significant changes Electronically Signed On 07-01-2023 7:36:44 CDT by Prashant Pitts M.D. [email or web address] cross [email or web address]/store/[id number]
[2023-06-30 21:15] LABS: Troponin 5 6HR 29.37 ng/L (0-15)
[2023-06-30 21:16] LABS: Troponin 5 6HR Delta 12.37 ng/L (0-12)
[2023-07-01 06:00] VITALS: BP 142/94; PULSE 86; RESP 17; TEMP 36.7; O2SAT 98
[2023-07-01] MEDS: isosorbide mononitrate ER 30 mg Tablet PO (08:28)
[2023-07-01] MEDS: carvedilol 3.125 mg Tablet PO (08:28)
[2023-07-01] MEDS: chlorthalidone 25 mg Tablet PO (08:28)
[2023-07-01] MEDS: tamsulosin 0.4 mg Capsule PO (08:28)
[2023-07-01] MEDS: amlodipine 5 mg Tablet 10 MG PO (08:28)
[2023-07-01] MEDS: spironolactone 25 mg Tablet 12.5 MG PO (08:28)
[2023-07-01] MEDS: ranolazine (12HR) 500 mg Tablet PO (10:09)
--- NOTE | 2023-07-01 11:58 | PC.NURSE ---
pt states no chest pains, no dizziness, no headache, states feeling much better after taking the ranolazine medication.
--- NOTE | 2023-07-01 12:54 | PM.PN ---
Subjective Subjective: Patient was seen this morning, he had 1 episodes of chest pain early this morning, relieved before nitro was given, his 6-hour troponin was 29.37, delta of 12.37, EKG no acute ST-T wave changes, currently chest pain-free, I gave him Ranexa 500 mg twice daily, he was monitored he tolerated it well, will discharge on Ranexa, Imdur, Plavix, statin, beta-sami, chlorthalidone, he has a known 50%-60% LAD lesion, patient will see primary care in 1 week, follow-up cardiology in 1 week, in terms of his chronic lacunar infarcts I would have the patient follow-up with Dr. Leonor Cadena as outpatient, I will also discharge him on event monitor, follow-up with cardiology, discharged on blood pressure medications, needs to see his primary care provider for blood pressure monitoring, in terms of his right eye blurry vision, he needs to follow-up with Dr. Jacinto Vitals/I&O/Wt Last Vital Signs Temp 98.0 F 07/01/23 06:00 Pulse 86 07/01/23 06:00 Resp 17 07/01/23 06:00 BP 142/94 07/01/23 06:00 Pulse Ox 98 07/01/23 06:00 O2 Del Method Room Air 07/01/23 06:00 Physical Exam Const: COMMON NORMALS: no acute distress and patient oriented x3 Resp: COMMON NORMALS: normal respiratory effort, No retractions, No use of accessory muscles and clear to auscultation bilaterally AUSCULTATION: clear to auscultation bilaterally Cardio: COMMON NORMALS: regular rate, regular rhythm, S1 normal heart sound present and S2 normal heart sound present RATE: regular rate RHYTHM: regular rhythm HEART SOUNDS: S1 normal heart sound present and S2 normal heart sound present GI: COMMON NORMALS: Normal to inspection, nondistended, normoactive bowel sounds present, Soft to palpation, non-tender, No hepatosplenomegaly present, no masses and no bruits PALPATION: Yes Soft to palpation and Yes No hepatosplenomegaly present Extremity: COMMON NORMALS: no clubbing, cyanosis or edema and no pedal edema Neuro: COMMON NORMALS: patient oriented x3 Psych: COMMON NORMALS: mental status grossly normal Data 06/26/23 18:37 06/27/23 09:05 A&P Assessment and plan (1) Cerebellar ataxia: (2) Hypertension: (3) LVH (left ventricular hypertrophy): (4) NSTEMI (non-ST elevated myocardial infarction): (5) Hypertensive urgency: Plan Patient was seen this morning, he had 1 episodes of chest pain early this morning, relieved before nitro was given, his 6-hour troponin was 29.37, delta of 12.37, EKG no acute ST-T wave changes, currently chest pain-free, I gave him Ranexa 500 mg twice daily, he was monitored he tolerated it well, will discharge on Ranexa, Imdur, Plavix, statin, beta-sami, chlorthalidone, he has a known 50%-60% LAD lesion, patient will see primary care in 1 week, follow-up cardiology in 1 week, in terms of his chronic lacunar infarcts I would have the patient follow-up with Dr. Leonor Cadena as outpatient, I will also discharge him on event monitor, follow-up with cardiology, discharged on blood pressure medications, needs to see his primary care provider for blood pressure monitoring, in terms of his right eye blurry vision, he needs to follow-up with Dr. Jacinto Attestations Medical Necessity Statement*: Patient will be discharged today as above Coding Level of Care Code Acute Code for [facility] Fwd Diagnoses Cerebellar ataxia G11.9 Hypertension I10 LVH (left ventricular hypertrophy) I51.7 NSTEMI (non-ST elevated myocardial infarction) I21.4 Hypertensive urgency I16.0
[2023-07-01] MEDS: alum-mag-hydroxide-sime 30 mL UDC PO (15:40)
[2023-07-01] MEDS: clopidogrel 75 mg Tablet PO (15:40)
[2023-07-01 15:57] VITALS: BP 142/94; PULSE 86; RESP 17; TEMP 36.7; O2SAT 98
--- NOTE | 2023-07-01 16:58 | PC.NURSE ---
written discharge instruction discussed and left with patient. pt resendez of 506.00 and 1.32 in change counted and returned to patient. pt left with car tender.
[2023-07-09 15:24] LABS: DNA AB (DS) CRITHIDIA,IFA NEGATIVE (NEGATIVE)
== END 2023-07-01 16:59 | disposition home or self-care (01) | DRG 281 ==
LOC: ER 17:28 → NP 18:10 → CSU 19:54 → ICU 20:37 → NP 05-26 16:14 → CSU 05-29 01:28 → NP 06-01 13:25
PROVIDERS: Family Medicine; Internal Medicine; Internal Medicine Cardiovascular Disease; Physician Assistant; Student in an Organized Health Care Education/Training Program; Admitting Provider Psychiatry & Neurology Psychiatry; Emergency Provider Family Medicine; PCP Nurse Practitioner Family; Visit Provider Psychiatry & Neurology Psychiatry
PROC: B211YZZ Fluoroscopy of Multiple Coronary Arteries using Other Contrast (ICD-10-PCS; principal; 2023-05-31 15:50)
DX: I16.0 Hypertensive urgency (principal); I21.A1 Myocardial infarction type 2; F23 Brief psychotic disorder; N17.9 Acute kidney failure, unspecified; I67.4 Hypertensive encephalopathy; G11.9 Hereditary ataxia, unspecified; I25.10 Atherosclerotic heart disease of native coronary artery without angina pectoris; I12.9 Hypertensive chronic kidney disease with stage 1 through stage 4 chronic kidney disease, or unspecified chronic kidney disease; N18.9 Chronic kidney disease, unspecified; I25.2 Old myocardial infarction; Z86.73 Personal history of transient ischemic attack (TIA), and cerebral infarction without residual deficits; Z91.148 Patient's other noncompliance with medication regimen for other reason; I51.7 Cardiomegaly; R45.850 Homicidal ideations; H81.10 Benign paroxysmal vertigo, unspecified ear; H26.9 Unspecified cataract; F41.9 Anxiety disorder, unspecified; F01.50 Vascular dementia, unspecified severity, without behavioral disturbance, psychotic disturbance, mood disturbance, and anxiety; R07.9 Chest pain, unspecified; Z82.49 Family history of ischemic heart disease and other diseases of the circulatory system; R94.39 Abnormal result of other cardiovascular function study; F17.220 Nicotine dependence, chewing tobacco, uncomplicated; H53.8 Other visual disturbances
CPT/HCPCS: 36415; 70450; 70551; 71045; 76770; 78452; 80048; 80053; 80061; 80306; 80307; 81003; 83036; 83735; 83880; 84100; 84443; 84484; 85025; 85610; 85651; 86160; 86162; 86235; 86255; 86376; 87426; 93005; 93017; 93306; 93454; 93571; 93880; 94664; 96372; 96375; 96376; 97150; 97165; 99152; 99153; 99285; A9500; C1769; C1887; C1894; C9113; J0360; J1200; J1644; J1650; J2250; J2785; J3010; J3490; J7030; J8597; Q0162; Q9967